=== PATIENT | female | born 1960 | race Caucasian/White ===

== ENCOUNTER → 2017-08-14 | Outpatient (CLI) | payer BC | END | disposition home or self-care (01) | LOC: C.PAPS 10:51 | PROVIDERS: ATTEND Obstetrics & Gynecology | DX: Z01.419 Encounter for gynecological examination (general) (routine) without abnormal findings (principal) ==

== ENCOUNTER 2017-12-25 14:55 | Inpatient (IN) | payer BC, OTHER ==
[~2017-12-25] VITALS: Ht 167.6 cm; Wt 71.0 kg
--- NOTE | 2017-12-25 15:36 | EMERGENCY ROOM VISIT NOTE ---
History Report prepared by Carlyn: Freida Pena Under the Supervision of: Dr. Alfredito Sarmiento M.D. First contact with patient: 14:58 Chief Complaint: MENTAL HEALTH EVALUATION Stated Complaint: MHMR History of Present Illness The patient is a 57 year old white female with a past medical history of breast cancer, GERD, OCD who presents to the ED for a mental health evaluation. The patient states that she was at a routine appointment this afternoon with her PCP. She had thought that she was having some issues with her hormones fluctuating since she started menopause a few years ago. The patient states that she answered some questions in a concerning way and was advised to come to the ED for a mental health evaluation. She states that she felt better after she left her PCP's office today. Positive compulsive hand washing. Negative HI, SI, AVH. Pt denies any mental health history. After discussion with nurse and mental health specialist, the patient reportedly stated that she wanted to kill her [id number] and that she was hearing voices that were telling her to do so. The patient denied this at the time of her visit in the ED. Mental health specialist states that the patient was doing a puzzle and couldn't find a puzzle piece. She stated that once she found this missing puzzle piece she was going to kill her [id number]. 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 Pt admits compulsive hand washing. Review of Systems See HPI for pertinent positives and negatives. A total of ten systems were reviewed and were otherwise negative. Past Medical & Surgical Medical Problems: (1) Acid reflux (2) HX: breast cancer (3) OCD (obsessive compulsive disorder) Surgical Problems: (1) History of lumpectomy Family History No pertinent history stated. Social History Smoking Status: Never Smoker Alcohol Use: occasionally Drug Use: none Current/Historical Medications Scheduled Ascorbic Acid (Ascorbic Acid), 1 TAB PO DAILY Bimatoprost (Lumigan), 1 DROPS OP HS Cholecalciferol (Vitamin D3), 1 TAB PO DAILY Multivitamin (Multivitamin), 1 TAB PO DAILY Ranitidine Hcl (Zantac), 150 MG PO BID Vitamin E (E-400), 1 CAP PO Q2D Allergies Coded Allergies: Clindamycin (Unverified Allergy, Mild, rash, 12/25/17) Penicillins (Unverified Allergy, Unknown, rash, 12/25/17) Sulfamethoxazole (Unverified Allergy, Unknown, unknown, 12/25/17) doesn't remember Adhesives (Unverified Adverse Reaction, Severe, blisters, 12/25/17) Physical Exam Vital Signs Date Time Temp Pulse Resp B/P (MAP) Pulse Ox O2 Delivery O2 Flow Rate FiO2 12/25/17 17:30 98 20 124/68 99 Room Air 12/25/17 16:30 98 20 145/88 100 Room Air 12/25/17 15:22 36.8 98 20 158/74 100 Room Air Physical Exam GENERAL: Awake, alert, well-appearing, NAD HENT: Normocephalic, atraumatic. EYES: Normal conjunctiva. Sclera non-icteric. NECK: Supple. No nuchal rigidity. FROM. RESPIRATORY: CTAB, no rhonchi, wheezing, crackles CARDIAC: RRR, no MRG ABDOMEN: Soft, NTND, BS+ MSK: No chest wall TTP, no LE edema NEURO: GCS 15, CN 2-12 intact, moves all 4s on command SKIN: No rash or jaundice noted. PSYCH: Cooperative, doesn't avert gaze, does not appear depressed. Denies SI, HI , AVH. Medical Decision & Procedures Laboratory Results 12/25/17 15:31 Red Blood Count 4.14, Mean Corpuscular Volume 98.6, Mean Corpuscular Hemoglobin 33.1, Mean Corpuscular Hemoglobin Concent 33.6, Mean Platelet Volume 9.7, Neutrophils (%) (Auto) 64.9, Lymphocytes (%) (Auto) 27.1, Monocytes (%) (Auto) 7.2, Eosinophils (%) (Auto) 0.3, Basophils (%) (Auto) 0.3, Neutrophils # (Auto) 3.78, Lymphocytes # (Auto) 1.58, Monocytes # (Auto) 0.42, Eosinophils # (Auto) 0.02, Basophils # (Auto) 0.02 12/25/17 15:31 Test 12/25/17 15:30 12/25/17 15:31 Urine Color YELLOW Urine Appearance CLEAR (CLEAR) Urine pH 6.5 (4.5-7.5) Urine Specific [place] 1.010 (1.000-1.030) Urine Protein NEG (NEG) Urine Glucose (UA) NEG (NEG) Urine Ketones NEG (NEG) Urine Occult Blood NEG (NEG) Urine Nitrite NEG (NEG) Urine Bilirubin NEG (NEG) Urine Urobilinogen NEG (NEG) Urine Leukocyte Esterase NEG (NEG) Urine Test NEG (NEG) Urine Opiates Screen NEG (NEG) Urine Methadone, Qualitative NEG (NEG) Urine Barbiturates NEG (NEG) Urine Phencyclidine (PCP) Level NEG (NEG) Ur Amphetamine/Methamphetamine NEG (NEG) MDMA (Ecstasy) Screen NEG (NEG) Urine Benzodiazepines Screen NEG (NEG) Urine Cocaine Metabolite NEG (NEG) Urine Marijuana (THC) NEG (NEG) White Blood Count 5.83 K/uL (4.8-10.8) Red Blood Count 4.14 M/uL (4.2-5.4) Hemoglobin 13.7 g/dL (12.0-16.0) Hematocrit 40.8 % (37-47) Mean Corpuscular Volume 98.6 fL (80-100) Mean Corpuscular Hemoglobin 33.1 pg (25-34) Mean Corpuscular Hemoglobin Concent 33.6 g/dl (32-36) Platelet Count 232 K/uL (130-400) Mean Platelet Volume 9.7 fL (7.4-10.4) Neutrophils (%) (Auto) 64.9 % Lymphocytes (%) (Auto) 27.1 % Monocytes (%) (Auto) 7.2 % Eosinophils (%) (Auto) 0.3 % Basophils (%) (Auto) 0.3 % Neutrophils # (Auto) 3.78 K/uL (1.4-6.5) Lymphocytes # (Auto) 1.58 K/uL (1.2-3.4) Monocytes # (Auto) 0.42 K/uL (0.11-0.59) Eosinophils # (Auto) 0.02 K/uL (0-0.5) Basophils # (Auto) 0.02 K/uL (0-0.2) RDW Standard Deviation 45.1 fL (36.4-46.3) RDW Coefficient of Variation 12.6 % (11.5-14.5) Immature Granulocyte % (Auto) 0.2 % Immature Granulocyte # (Auto) 0.01 K/uL (0.00-0.02) Anion Gap 6.0 mmol/L (3-11) Est Creatinine Clear Calc Drug Dose 64.4 ml/min Estimated GFR () 83.4 Estimated GFR (Non- 71.9 BUN/Creatinine Ratio 14.7 (10-20) Calcium Level 9.6 mg/dl (8.5-10.1) Total Bilirubin 0.5 mg/dl (0.2-1) Direct Bilirubin 0.2 mg/dl (0-0.2) Aspartate Amino Transf (AST/SGOT) 21 U/L (15-37) Alanine Aminotransferase (ALT/SGPT) 34 U/L (12-78) Alkaline Phosphatase 81 U/L (45-117) Total Protein 7.8 gm/dl (6.4-8.2) Albumin 4.5 gm/dl (3.4-5.0) Thyroid Stimulating Hormone (TSH) 3.350 uIu/ml (0.300-4.500) Salicylates Level < 1.7 mg/dl (2.8-20) Acetaminophen Level < 2 ug/ml (10-30) Ethyl Alcohol mg/dL < 3.0 mg/dl (0-3) Laboratory results reviewed by me. ED Course 1511: The patient was evaluated in room A8. A complete history and physical exam was performed. 3: I discussed the case with Kari, the psychiatric housing case manager. 3: Further history was obtained from the patient's brother. We discussed the treatment plan. 2109: The patient was accepted to [facility] for further management. She was agreeable voluntarily. Medical Decision Differential diagnosis: Etiologies such as mood disorder, infection, hypoglycemia, electrolyte abnormalities, cardiac sources, intracerebral event, toxicologic, neurologic, as well as others were entertained. The patient is a 57 year old white female with a past medical history of breast cancer, GERD, OCD who presents to the ED for a mental health evaluation. Patient was seen and evaluated the bedside. Patient was referred as a three- view to involuntary psychiatric treatment. The patient denied any symptoms on exam. The patient was very cooperative. Patient denied any auditory or visual hallucinations. Patient denied any SI or HI. Purportedly the patient had presented to a clinic follow-up where she had expressed that she would want to kill her [id number] and that there were voices telling her to do so. She did have blood work completed. Patient was medically cleared. Patient was evaluated by the mental health specialist. Patient was voluntarily admitted. Patient was admitted to 3 S. Medication Reconcilliation Current Medication List: was personally reviewed by me Blood Pressure Screening Patient's blood pressure: Normal blood pressure Impression Primary Impression: Auditory hallucination Additional Impressions: Homicidal ideation OCD (obsessive compulsive disorder) Scribe Attestation The scribe's documentation has been prepared under my direction and personally reviewed by me in its entirety. I confirm that the note above accurately reflects all work, treatment, procedures, and medical decision making performed by me. Departure Information Dispostion Mental Health Acute Care Referrals Sharita Seay M.D. (PCP) Patient Instructions [facility] Problem Qualifiers Additional Impressions: OCD (obsessive compulsive disorder) Obsessive-compulsive disorder type: other Qualified Codes: F42.8 - Other obsessive-compulsive disorder
[2017-12-25] MEDS ORDERED: VITACAP37 PO (15:40)
[2017-12-25] MEDS ORDERED: MULT-506 PO (15:40)
[2017-12-25] MEDS ORDERED: ASCO100061 PO (15:40)
[2017-12-25] MEDS ORDERED: BIMA0.01 OP (15:40)
[2017-12-25] MEDS ORDERED: CHOL1000 PO (15:40)
[2017-12-25] MEDS ORDERED: RANI150T3 PO (15:40)
[2017-12-25 15:51] LABS: BASO % 0.3 %; BASO ABS # 0.02 K/uL (0-0.2); EOS % 0.3 %; EOS ABS # 0.02 K/uL (0-0.5); HEMATOCRIT 40.8 % (37-47); HEMOGLOBIN 13.7 g/dL (12.0-16.0); IG# 0.01 K/uL (0.00-0.02); LYMPH % 27.1 %; LYMPH ABS # 1.58 K/uL (1.2-3.4); MEAN CELL VOLUME 98.6 fL (80-100); MEAN CORPUSCULAR HEMOGLOBIN 33.1 pg (25-34); MEAN CORPUSCULAR HGB CONC 33.6 g/dl (32-36); MEAN PLATELET VOLUME 9.7 fL (7.4-10.4); MONO % 7.2 %; MONO ABS # 0.42 K/uL (0.11-0.59); NEUT % 64.9 %; NEUT ABS # 3.78 K/uL (1.4-6.5); PLATELET COUNT 232 K/uL (130-400); RED CELL DISTRIBUTION WIDTH CV 12.6 % (11.5-14.5); RED CELL DISTRIBUTION WIDTH SD 45.1 fL (36.4-46.3); WHITE BLOOD COUNT 5.83 K/uL (4.8-10.8)
[2017-12-25 16:04] LABS: ALBUMIN 4.5 gm/dl (3.4-5.0); CALCIUM 9.6 mg/dl (8.5-10.1); CREATININE 0.88 mg/dl (0.60-1.20); POTASSIUM 3.8 mmol/L (3.5-5.1)
[2017-12-25 16:15] LABS: TOTAL PROTEIN 7.8 gm/dl (6.4-8.2)
[2017-12-25] MEDS ORDERED: hydrOXYzine HCL 25 MG TAB PO PRN (20:30)
[2017-12-25] MEDS ORDERED: BISMUTH SUBSALICYLATE PER ML OMNICELL CHARGE PO PRN (20:30)
[2017-12-25] MEDS ORDERED: ACETAMINOPHEN 325 MG TAB PO PRN (20:30)
[2017-12-25] MEDS ORDERED: SODIUM CHLORIDE 0.65% NA SOLN 45 ML (OCEAN) PRN (20:30)
[2017-12-25] MEDS ORDERED: ALUMINUM/MAGNESIUM SUSP 30 ML UDC PO PRN (20:30)
[2017-12-25] MEDS ORDERED: MAGNESIUM HYDROXIDE SUSP 30 ML UDC PO PRN (20:30)
[2017-12-25 21:07] VITALS: O2SAT 99
[2017-12-25 22:06] VITALS: BP 137/92; PULSE 64; TEMP 36.8; Ht 167.6 cm; Wt 71.0 kg
[2017-12-25] MEDS: BIMATOPROST 0.01% OP SOLN 2.5 ML BTL OP SCH (22:47)
[2017-12-25] MEDS: RANITIDINE HCL 150 MG TAB PO SCH (23:37)
[2017-12-26] MEDS: hydrOXYzine HCL 25 MG TAB PO PRN ×2 (02:13→21:05)
[2017-12-26 06:57] VITALS: BP_SYST 117; BP_SYST 119; BP_DIAS 75; BP_DIAS 77; PULSE 67; TEMP 36.7
[2017-12-26] MEDS: MULTIVITAMIN TAB PO SCH (08:17)
[2017-12-26] MEDS: CHOLECALCIFEROL 1000 INTER.UNIT TAB PO SCH (08:17)
[2017-12-26] MEDS: RANITIDINE HCL 150 MG TAB PO SCH ×2 (08:18→21:05)
--- NOTE | 2017-12-26 10:42 | Psychiatric History & Physical ---
History Date of Service Dec 26, 2017. Identifying Data Valentina Ibrahim is a 57-year-old female admitted on Dec 25, 2017 at 20:28 who currently lives in [place] alone. Valentina Ibrahim was admitted on a 201 voluntary commitment. Patient is admitted from home. The patient was brought to the ED by the police after a 302 warrant was petitioned by her brother and [id number]. Information provided by the patient is considered to be reliable. Chief Complaint "I think it's because my family thought I was depressed and might hurt myself". History of Present Illness Valentina Ibrahim is a 57-year-old female brought to the ED upon 302 warrant with petitioning statements from her brother and uqxriz-[id number]. Pt agreed to sign in voluntarily and was admitted to [address] [place] [address]. Pt states she was seen for a doctor 's appointment today and had filled out a questionnaire, which concerned her doctor. Pt reports filling out the survey (presumed to be PHQ-9) "based on one of my bad days", but states "I was actually having a really good day yesterday" . Due to doctor's concern coupled with reports of significant decline by her brother and [id number], the patient was referred for mental health evaluation. Pt states she went home after her doctor's appointment and completed several activities when the police arrived at her door to take her to the hospital. Pt feels that this concern was exaggerated. Pt states she will express concerning thoughts to her brother as a way to "share ", but states "expressed thoughts are not always something worth acting on." She reports having occasional fleeting thoughts of SI/HI which are prompted by the news or headlines in the paper. Pt states, "sometimes I think life is hard , but I think about those things and realize I would never do that". She has noticed these thoughts with her own life, but has also thought "sometimes people hurt people they love, I realized I could do that to my [id number]-[id number], but I would never want to because I care for her." Pt states she is typically able to dismiss these thoughts, but on occasion will share them with her brother to get assurance. Pt states she has a history of OCD and notices severity of hand washing behavior changes based on activity level and distractors. Pt reports she was sick with the flu around Thanksgiving this year and was concerned about spreading her germs to her family. Due to these concerns, handwashing behavior increased significant. Pt states she is now working to decrease this and reports she has been effective. Pt "I will always wash my hands before and after meals, when I come home from the store, and after the bathroom - it's the other events that I'm flexible with". Pt reports she will take advantage of phone calls with her brother to ask for reassurance of her behavior. Pt remembers growing up with these behaviors, but states the severity changes. She reports mood symptoms in the context of her heightened obsessions stating, "I get depressed when I can't break the cycle". Reported depression lasts for several days at most. She denies anhedonia, difficulty concentrating, trouble with sleeping and eating, and feeling hopeless. Pt states her recent weight loss is due to "being distracted with my hand washing, I would forget to eat". She states she is now at a weight she wishes to maintain. Concerns from the brother and dnsleo-wf-ify seem to be greater than what the patient is expressing in our encounter today. Reported concern for decreased functioning, weight loss, and increased intrusive thoughts have led to petitioning statements for the patient's admission. Extensive petitioning statements with supplemental "running record" from her bayelf-kw-sxj of comments made recently. Per brother, pt mentioned "thought of us finding her dangling from a rope in her house", walking in a graveyard stating "and all those amanda people". Sxnkur-ib-iew, Etta, remembers comments of "I wish I had a button I could push and just be out of here". Etta reports patient has been accepted by the [facility], but can only move there is 3 years. Pt is eager for this as "I would just sit in a custodial and not think about anything". Petitioning statements are out of proportion to patient's words at this encounter. It would be extremely beneficial to engage her family in a meeting to gain collateral information. Pt denies current SI/HI, A/V hallucinations, paranoia, vladimir, PTSD, eating disorder, and other psychosis. Pt reports she is not interested in medications or therapy at this point in time as she feels this is something she can control with the support of her family. Past Psychiatric History Current OP Treatment: no current treatment Prior OP Treatment: no prior treatment Access to a Gun: No Suicide Attempts: No Past Medication Trials None Past Medical/Surgical History History of Concussion/Seizure: No (1) HX: breast cancer (2) Acid reflux Allergies Allergies: Coded Allergies: Clindamycin (Unverified Allergy, Mild, rash, 12/25/17) Penicillins (Unverified Allergy, Unknown, rash, 12/25/17) Sulfamethoxazole (Unverified Allergy, Unknown, unknown, 12/25/17) doesn't remember Adhesives (Unverified Adverse Reaction, Severe, blisters, 12/25/17) Home Medications Scheduled Ascorbic Acid (Ascorbic Acid), 1 TAB PO DAILY Bimatoprost (Lumigan), 1 DROPS OP HS Cholecalciferol (Vitamin D3), 1 TAB PO DAILY Multivitamin (Multivitamin), 1 TAB PO DAILY Ranitidine Hcl (Zantac), 150 MG PO BID Vitamin E (E-400), 1 CAP PO Q2D Family History History of Suicide: No History of Substance Abuse: Yes (father - recovering alcoholic) Psychiatric History: Yes (niece - bipolar disorder) Alcohol Use Alcohol Use In Past 12 Months: No AUDIT Total Score: 1 Smoking Use Smoking Status: Never Smoker Substance History None Personal History Lives in: [place], [place] Childhood: Pt spent most of her life in [place]. She has one brother who has been supportive. Pt moved to [place] 7 years ago. 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 Relationship History: never Children: None Spiritual Affiliation: Synagogue Legal History: none Psychological Trauma History: Denies Hx Traumatic Event Review of Systems Psych: denies symptoms other than stated above Constitutional: denied Cardiovascular: denied GI: reports frequent indigestion Neurologic: reports occasional "tingling" in toes Remainder of 10 body systems also reviewed and denied other than noted above. Examination Physical Examination A physical exam was performed in the ER prior to admission to the unit by Alfredito Sarmiento M.D.. I accept that physical as correct/medical clearance for the inpatient physical exam. Vital Signs Vital Signs Past 12 Hours Date Time Temp Pulse Resp B/P (MAP) Pulse Ox O2 Delivery O2 Flow Rate FiO2 1/25/18 06:57 36.7 67 16 119/75 117/77 12/25/17 22:06 36.8 64 16 137/92 12/25/17 21:07 78 16 137/92 99 Room Air Laboratory Results Last 24 Hours Test 12/25/17 15:30 12/25/17 15:31 12/25/17 15:42 Urine Color YELLOW Urine Appearance CLEAR Urine pH 6.5 Urine Specific [place] 1.010 Urine Protein NEG Urine Glucose (UA) NEG Urine Ketones NEG Urine Occult Blood NEG Urine Nitrite NEG Urine Bilirubin NEG Urine Urobilinogen NEG Urine Leukocyte Esterase NEG Urine Test NEG Urine Opiates Screen NEG Urine Methadone, Qualitative NEG Urine Barbiturates NEG Urine Phencyclidine (PCP) Level NEG Ur Amphetamine/Methamphetamine NEG MDMA (Ecstasy) Screen NEG Urine Benzodiazepines Screen NEG Urine Cocaine Metabolite NEG Urine Marijuana (THC) NEG White Blood Count 5.83 K/uL Red Blood Count 4.14 M/uL Hemoglobin 13.7 g/dL Hematocrit 40.8 % Mean Corpuscular Volume 98.6 fL Mean Corpuscular Hemoglobin 33.1 pg Mean Corpuscular Hemoglobin Concent 33.6 g/dl Platelet Count 232 K/uL Mean Platelet Volume 9.7 fL Neutrophils (%) (Auto) 64.9 % Lymphocytes (%) (Auto) 27.1 % Monocytes (%) (Auto) 7.2 % Eosinophils (%) (Auto) 0.3 % Basophils (%) (Auto) 0.3 % Neutrophils # (Auto) 3.78 K/uL Lymphocytes # (Auto) 1.58 K/uL Monocytes # (Auto) 0.42 K/uL Eosinophils # (Auto) 0.02 K/uL Basophils # (Auto) 0.02 K/uL RDW Standard Deviation 45.1 fL RDW Coefficient of Variation 12.6 % Immature Granulocyte % (Auto) 0.2 % Immature Granulocyte # (Auto) 0.01 K/uL Sodium Level 138 mmol/L Potassium Level 3.8 mmol/L Chloride Level 106 mmol/L Carbon Dioxide Level 26 mmol/L Anion Gap 6.0 mmol/L Blood Urea Nitrogen 13 mg/dl Creatinine 0.88 mg/dl Est Creatinine Clear Calc Drug Dose 64.4 ml/min Estimated GFR () 83.4 Estimated GFR (Non- 71.9 BUN/Creatinine Ratio 14.7 Random Glucose 120 mg/dl Calcium Level 9.6 mg/dl Total Bilirubin 0.5 mg/dl Direct Bilirubin 0.2 mg/dl Aspartate Amino Transf (AST/SGOT) 21 U/L Alanine Aminotransferase (ALT/SGPT) 34 U/L Alkaline Phosphatase 81 U/L Total Protein 7.8 gm/dl Albumin 4.5 gm/dl Thyroid Stimulating Hormone (TSH) 3.350 uIu/ml Salicylates Level < 1.7 mg/dl Acetaminophen Level < 2 ug/ml Ethyl Alcohol mg/dL < 3.0 mg/dl Bedside Glucose 119 mg/dl Mental Examination During interview pt is: alert and oriented, cooperative, guarded Appearance: appropriately dressed, appropriately groomed Eye contact is: good Motor behavior is: steady gait & station, no abnormal motor movements Speech: normal in rate, rhythm & volume Affect: blunted Mood is: other ("I'm fine") Thought process: goal directed, clear, coherent Thought content: obsessions (with handwashing), reality based without delusions , phobias (of germs/contamination) Suicidal thought are: denied (but frequent comments about listed in 302 petition ), Plan: denied, Intent: denied Homicidal thoughts are: denied (shared with family that she "needs to kill Etta", but doesn't want to.), Plan: denied, Intent: denied Hallucinations: denies auditory, denies visual Cognition: memory grossly intact, attention grossly intact, language grossly intact Intelligence estimated to be: consistent with level of education Insight: impaired Judgement: impaired Impression / Recommendations Impression 57-year-old female admitted to [address] [place] [address] in voluntarily after 302 warrant. Lifelong history of OCD and obsessions with germs and contamination. Pt has frequent handwashing and cleansing that fluctuates in severity. Pt likely minimizing symptoms as extensive petitioning statements from brother and [id number] show frequent comments of and obsessions with contamination to the point of decreased function and poor nutritional intake. Pt is not willing for medications or outpatient therapy at initial assessment, but would likely benefit from both. Offered information on SSRIs to review to benefit with obsessions, which patient denied. Pt unwilling to further involve family at this time, but is necessary as her account of the situation is incongruent to the remarks on the petitioning statements. Pt feels her admission is an over -exaggeration and is willing to only participate in order to be discharged home. Inventory Assets Strengths: intelligence, strong support from family members. Needs: lacks insight into severity of situation, refusal for outpatient treatment Risk Factors Assessment : Yes /single/: Yes Access to guns: No Health problems: No Mental Health Diagnoses: Yes (OCD) Substance use disorders: No Previous attempt: No Family history of suicide: No Previous psychiatric stay: No Hopelessness: No Smoker: No Protective Factors Assessment Oriental Orthodox beliefs: Yes : No Responsible for young children: No Employed: No (Retired) Stable relationships: No Supportive family: Yes Recommendations (1) OCD (obsessive compulsive disorder) 12/26 - Pt refuses medications at this time. Unwilling for handout to review on SSRIs which could help treat obsessions compulsions. Refuses outpatient treatment at this time. - Encourage, and potentially mandate, family meeting with brother and sister- in-law as patients account is incongruent to statements made by family members. Difficult to determine severity of decreased functioning and insight into illness based on patient's reports alone. - Encourage participation in group therapy and other group-based programming on the unit. - Coordination of care with outpatient providers. Presentation and treatment plan reviewed and discussed with Dr. Hammond who is in agreement with plan at this point in time. CPT Code Initial Hospital Care: 24579 Problem Qualifiers (1) OCD (obsessive compulsive disorder): Obsessive-compulsive disorder type: mixed obsessional thoughts and acts Qualified Codes: F42.2 - Mixed obsessional thoughts and acts
[2017-12-26] MEDS: BIMATOPROST 0.01% OP SOLN 2.5 ML BTL OP SCH (21:05)
[2017-12-27 06:58] VITALS: BP_SYST 109; BP_SYST 97; BP_DIAS 61; BP_DIAS 69; PULSE 52; PULSE 67; TEMP 36.5
[2017-12-27] MEDS: MULTIVITAMIN TAB PO SCH (07:57)
[2017-12-27] MEDS: CHOLECALCIFEROL 1000 INTER.UNIT TAB PO SCH (07:57)
[2017-12-27] MEDS: RANITIDINE HCL 150 MG TAB PO SCH ×2 (07:57→21:09)
--- NOTE | 2017-12-27 10:34 | Psych Management Progress Note ---
Psychiatry Miscellaneous Date of Service: Dec 27, 2017. Patient seen, MS assessed. Rates mood as "almost 10 but then I heard my length of stay so now maybe 6 or 7"/10. Encouraged cooperation with care and treatment plan as outlined by allied health prescriber. Presented as somewhat guarded in group interactions. Must have a family session or at least witnessed visitation with family prior to discharge to see if triggering for her intrussive thoughts. Would benefit from SRI trial.
--- NOTE | 2017-12-27 15:24 | Psychiatric Progress Notes ---
Progress Note Date of Service Dec 27, 2017. Interval History Valentina Ibrahim is a 57-year-old female admitted on Dec 25, 2017 at 20:28 who currently lives in [place] alone. Valentina Ibrahim was admitted on a 201 voluntary commitment. Patient is admitted from home. The patient was brought to the ED by the police after a 302 warrant was petitioned by her brother and [id number]. Information provided by the patient is considered to be reliable. Chief Complaint "I'm frustrated with my length of stay". Subjective Patient was seen & assessed interval progress reviewed with Treatment Team. Staff reports patient confirms willingness for therapy and has secured intake with [facility]. She continues to be participatory with groups but is resistant to treatment. Pt was seen today to assess progress since admission. Pt states she was troubled by her length of stay as she felt like it was a mistake for her to be here to begin with. Pt was hopeful she would not be staying long and was upset she was given 3-5 more days during treatment team. Pt now reports she has changed her mind and is unwilling to participate in therapy. She thinks "some things should be kept to yourself, or you end up in places like this for no reason". 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 She continues to refuse meeting with her brother and sister-in- law, although they have come to visit her. Pt continues to minimize symptoms and states she is able to control them on her own. She refuses medications and does not want any agents that could alter her mental state. Pt denies SI/HI, A/ V hallucinations, or other psychosis. She states handwashing behavior has decreased since admission. Review of Systems Psych: denies symptoms other than stated above Constitutional: denied Cardiovascular: denied GI: denied Neurologic: denied Remainder of 10 body systems also reviewed and denied other than noted above. Sleep Information Total Hours of Sleep: 6.50 Meal Information Percent of Breakfast Consumed: 100 Percent of Lunch Consumed: 100 Percent of Dinner Consumed: 100 Mental Status Exam During interview pt is: alert and oriented, guarded Appearance: appropriately dressed, appropriately groomed Eye contact is: good Motor behavior is: steady gait & station, no abnormal motor movements Speech: normal in rate, rhythm & volume Affect: blunted, irritable (about recommendations and length of stay) Mood is: other ("I'm fine") Thought process: clear, coherent, concrete Thought content: obsessions (with handwashing and cleanliness), reality based without delusions, phobias (germs/contamination) Suicidal thought are: denied (reported by brother and [id number]), Plan: denied, Intent: denied Homicidal thoughts are: denied (intrusive thoughts of having to kill her sister -in-law; not reported today), Plan: denied, Intent: denied Hallucinations: denies auditory, denies visual Cognition: memory grossly intact, attention grossly intact, language grossly intact Intelligence estimated to be: consistent with level of education Insight: impaired Judgement: impaired Impression Pt remains resistant to treatment. She refuses medications offered and is unwilling to review patient drug information handouts. Pt was initially agreeable to therapy and is now refusing as she doesn't feel it is beneficial to involve a stranger in her "business". Pt states she does not think a family meeting with her brother and [id number]-uv-zjq is necessary. Pt is concrete in her responses, but was encouraged to remain open-minded as many options were explained that could be of great benefit to her. Pt requires ongoing inpatient admission as she has not come around to any form of treatment for her presenting symptoms. Additional information from brother and uwwibu-jf-jlr would be helpful as patient is high-risk for decompensation if no stressor are , but she is not interested in involving them at this time. Plan (1) OCD (obsessive compulsive disorder) 12/26 - Pt refuses medications at this time. Unwilling for handout to review on SSRIs which could help treat obsessions compulsions. Refuses outpatient treatment at this time. - Encourage, and potentially mandate, family meeting with brother and sister- in-law as patients account is incongruent to statements made by family members. Difficult to determine severity of decreased functioning and insight into illness based on patient's reports alone. - Encourage participation in group therapy and other group-based programming on the unit. - Coordination of care with outpatient providers. 12/27 - Pt continues to refuse medications and outpatient therapy. She has been participating in groups, but will not engage in additional treatment. - Would be ideal to have family meeting with brother and [id number] to address their issues as patient feels she is here as a misunderstanding, but their accounts contradict these beliefs. - Continue to encourage treatment. Presentation and treatment plan reviewed and discussed with Dr. Hammond who is in agreement with plan at this point in time. Discharge / Aftercare Planning Primary Care Physician: Name: Evita Sanchez [facility] Therapist: Name: [facility] Date of Appointment: Jan 08, 2018 Time of Appointment: 1 p.m. Appointment Notes: Intake with Connie Fields, [address] [place] [address] Visit Code E&M Code: 62533 Inventory Assets Strengths: intelligence, strong support from family members. Needs: lacks insight into severity of situation, refusal for outpatient treatment Risk Factors Assessment : Yes /single/: Yes Health problems: No Mental Health Diagnoses: Yes (OCD) Substance use disorders: No Previous attempt: No Family history of suicide: No Previous psychiatric stay: No Hopelessness: No Smoker: No Protective Factors Assessment Buddhism beliefs: Yes : No Responsible for young children: No Employed: No (Retired) Stable relationships: No Supportive family: Yes Data Vital Signs Last 24 Hrs: Date Time Temp Pulse Resp B/P (MAP) Pulse Ox O2 Delivery O2 Flow Rate FiO2 12/27/17 06:58 36.5 52 16 97/61 67 109/69 Meds Administered Last 24 Hrs: Meds Administered (Past 24Hrs) Medications (Trade) Dose Ordered Sig/Yassine Route Start Time Stop Time Status Last Admin Dose Admin Hydroxyzine HCl (Vistaril Tab) 50 mg HSZ PRN PO 12/25/17 20:30 01/24/18 20:29 12/26/17 21:05 50 MG Cholecalciferol (Vitamin D Tab) 1,000 inter.unit DAILY PO 12/26/17 09:00 01/25/18 08:59 12/27/17 07:57 1,000 INTER.UNIT Multivitamins (Multivitamin Tab) 1 tab DAILY PO 12/26/17 09:00 01/25/18 08:59 12/27/17 07:57 1 TAB Ranitidine HCl (zANTac TAB) 150 mg BID PO 12/25/17 21:00 01/24/18 20:59 12/27/17 07:57 150 MG Bimatoprost (Lumigan 0.01%) 1 drops HS OP 12/25/17 22:00 01/24/18 21:59 12/26/17 21:05 1 DROPS Problem Qualifiers (1) OCD (obsessive compulsive disorder): Obsessive-compulsive disorder type: mixed obsessional thoughts and acts Qualified Codes: F42.2 - Mixed obsessional thoughts and acts
[2017-12-27] MEDS: BIMATOPROST 0.01% OP SOLN 2.5 ML BTL OP SCH (21:09)
[2017-12-27] MEDS: hydrOXYzine HCL 25 MG TAB PO PRN (21:09)
[2017-12-28 06:50] VITALS: BP_SYST 105; BP_SYST 113; BP_DIAS 65; BP_DIAS 76; PULSE 63; PULSE 67; TEMP 36.4
[2017-12-28] MEDS: MULTIVITAMIN TAB PO SCH (09:06)
--- NOTE | 2017-12-28 09:07 | Psychiatric Progress Notes ---
Progress Note Date of Service Dec 28, 2017. Interval History Valentina Ibrahim is a 57-year-old female admitted on Dec 25, 2017 at 20:28 who currently lives in [place] alone. Valentina Ibrahim was admitted on a 201 voluntary commitment. Patient is admitted from home. The patient was brought to the ED by the police after a 302 warrant was petitioned by her brother and [id number]. Information provided by the patient is considered to be reliable. Chief Complaint "I'm quite good". Subjective Patient was seen & assessed interval progress reviewed with Nursing. Pt states she had a visit last evening from her nephew and niece. She states she is still frustrated about being here, but says "I know I don't have a choice". Pt states she has been doing quite well and has noticed an improvement in appetite and energy since admission. She states her handwashing behavior has decreased and she was even able to shower in the shared restroom yesterday, something she had stated on admission she would absolutely not do. Long discussion was had with patient about the importance of a family meeting prior to discharge as she has refused treatment offered to her during this hospitalization. It is still presumed that patient is minimizing as her story remains incongruent with petitioning statements made by her brother and [id number]-da-qjg. Pt is aware that as her intrusive homicidal thoughts were directed toward her ezcyks-of-nag, it would be important for those concerns to be discussed during a formal meeting. Pt continues to believe that her admission is the fault of her PCP; however, we discussed that petitioning statements were made by her family and that their concerns needed to be addressed in order for everyone to feel comfortable with discharge. We discussed that the meeting also involves safety planning in which the patient can share her plans to improve on concerns expressed by her family. Although she is accepting that a family meeting will be required, she is continuing to refuse medications or outpatient therapy. Pt denies ongoing intrusive thoughts and reports improvement in her obsessions. Review of Systems Psych: denies symptoms other than stated above Constitutional: denied Cardiovascular: denied GI: denied Neurologic: denied Remainder of 10 body systems also reviewed and denied other than noted above. Sleep Information Total Hours of Sleep: 7.50 Meal Information Percent of Breakfast Consumed: 100 Percent of Lunch Consumed: 100 Percent of Dinner Consumed: 90 Mental Status Exam During interview pt is: alert and oriented, cooperative, guarded (refusing to discuss topics) Appearance: appropriately dressed, appropriately groomed (reports showering yesterday) Eye contact is: good Motor behavior is: steady gait & station, no abnormal motor movements Speech: normal in rate, rhythm & volume Affect: blunted, irritable (about requirement for family meeting) Mood is: other ("quite good") Thought process: clear, coherent, concrete Thought content: obsessions (contamination and handwashing), reality based without delusions, phobias (germs) Suicidal thought are: denied (reported in petitioning statement), Plan: denied , Intent: denied Homicidal thoughts are: denied (reported in petitioning statement), Plan: denied, Intent: denied Hallucinations: denies auditory, denies visual Cognition: memory grossly intact, attention grossly intact, language grossly intact Intelligence estimated to be: consistent with level of education Insight: impaired Judgement: impaired Impression Pt accepting requirement for family meeting to allow us to better assess discharge timing. States she will participate "because I have to", but is not agreeing to outpatient therapy or medications. Concerns of brother and sister- in-law should be addressed during the meeting and safety planning should take place as well. Pt reports improvement in obsessions and compulsions in this environment and states she has been eating better which she feels is causing her to improve as well. Pt continues to minimize symptoms and reports her admission was a mistake. She remains resistant to discuss concerns expressed by brother and [id number], which is concerning. Pt requires inpatient mental health treatment as risk factors and concerns reported in petitioning statement by family have yet to be address. Pt is at high risk for decompensation and harm to herself or others if discharged without an opportunity to address these concerns. Plan (1) OCD (obsessive compulsive disorder) 12/26 - Pt refuses medications at this time. Unwilling for handout to review on SSRIs which could help treat obsessions compulsions. Refuses outpatient treatment at this time. - Encourage, and potentially mandate, family meeting with brother and sister- in-law as patients account is incongruent to statements made by family members. Difficult to determine severity of decreased functioning and insight into illness based on patient's reports alone. - Encourage participation in group therapy and other group-based programming on the unit. - Coordination of care with outpatient providers. 12/27 - Pt continues to refuse medications and outpatient therapy. She has been participating in groups, but will not engage in additional treatment. - Would be ideal to have family meeting with brother and [id number]-fs-ieq to address their issues as patient feels she is here as a misunderstanding, but their accounts contradict these beliefs. - Continue to encourage treatment. 12/28 - Pt states she will participate in family meeting with brother and sister-in -law. Concerns from 302 petitioning statements and safety planning should be discussed. Discharge is highly dependent on patient's ability to address these concerns and mitigate risk factors. - Pt refusing medications and outpatient therapy. - Continue to offer resources for outpatient treatment. Presentation and treatment plan reviewed and discussed with Dr. Hammond who is in agreement with plan at this point in time. Discharge / Aftercare Planning Primary Care Physician: Name: Dr. Seay [facility] Therapist: Name: [facility] Date of Appointment: Jan 08, 2018 Time of Appointment: 1 p.m. Appointment Notes: Intake with Connie Fields, [address] [place] [address] Visit Code E&M Code: 62856 Inventory Assets Strengths: intelligence, strong support from family members. Needs: lacks insight into severity of situation, refusal for outpatient treatment Risk Factors Assessment : Yes /single/: Yes Health problems: No Mental Health Diagnoses: Yes (OCD) Substance use disorders: No Previous attempt: No Family history of suicide: No Previous psychiatric stay: No Hopelessness: No Smoker: No Protective Factors Assessment Synagogue beliefs: Yes : No Responsible for young children: No Employed: No (Retired) Stable relationships: No Supportive family: Yes Data Vital Signs Last 24 Hrs: Date Time Temp Pulse Resp B/P (MAP) Pulse Ox O2 Delivery O2 Flow Rate FiO2 12/28/17 06:50 36.4 63 16 105/65 67 113/76 Meds Administered Last 24 Hrs: Meds Administered (Past 24Hrs) Medications (Trade) Dose Ordered Sig/Yassine Route Start Time Stop Time Status Last Admin Dose Admin Cholecalciferol (Vitamin D Tab) 1,000 inter.unit DAILY PO 12/26/17 09:00 01/25/18 08:59 12/27/17 07:57 1,000 INTER.UNIT Multivitamins (Multivitamin Tab) 1 tab DAILY PO 12/26/17 09:00 01/25/18 08:59 12/27/17 07:57 1 TAB Problem Qualifiers (1) OCD (obsessive compulsive disorder): Obsessive-compulsive disorder type: mixed obsessional thoughts and acts Qualified Codes: F42.2 - Mixed obsessional thoughts and acts
[2017-12-28] MEDS: RANITIDINE HCL 150 MG TAB PO SCH ×2 (09:08→21:49)
[2017-12-28] MEDS: CHOLECALCIFEROL 1000 INTER.UNIT TAB PO SCH (09:08)
[2017-12-28] MEDS: hydrOXYzine HCL 25 MG TAB PO PRN (21:49)
[2017-12-28] MEDS: BIMATOPROST 0.01% OP SOLN 2.5 ML BTL OP SCH (21:49)
[2017-12-29 06:43] VITALS: BP_SYST 101; BP_SYST 110; BP_DIAS 62; BP_DIAS 68; PULSE 62; PULSE 73; TEMP 36.6
[2017-12-29] MEDS: CHOLECALCIFEROL 1000 INTER.UNIT TAB PO SCH (08:29)
[2017-12-29] MEDS: MULTIVITAMIN TAB PO SCH (08:29)
[2017-12-29] MEDS: RANITIDINE HCL 150 MG TAB PO SCH ×2 (08:29→21:17)
--- NOTE | 2017-12-29 10:03 | Psych Management Progress Note ---
Psychiatry Miscellaneous Date of Service: Dec 29, 2017. Patient seen, MS assessed. Rates mood as 9/10 and satisfied. Encouraged cooperation with care and treatment plan as outlined by allied health prescriber. She expressed a desire to resume exercise routine (jogging), somewhat closed to suggestions of activities that she could do here.
--- NOTE | 2017-12-29 12:37 | Psychiatric Progress Notes ---
Progress Note Date of Service Dec 29, 2017. Interval History Valentina Ibrahim is a 57-year-old female admitted on Dec 25, 2017 at 20:28 who currently lives in [place] alone. Valentina Ibrahim was admitted on a 201 voluntary commitment. Patient is admitted from home. The patient was brought to the ED by the police after a 302 warrant was petitioned by her brother and [id number]. Information provided by the patient is considered to be reliable. Chief Complaint "I'm OK.". Subjective Patient was seen & assessed interval progress reviewed with Treatment Team. The patient says that her mood is fine and she seems to be doing okay with her compulsive behaviors. She notes that she has been able to tolerate using the public shower and sharing a bathroom although initially with some anxiety and trepidation. She denies that she has excessively washing her hands although certain habits such as washing her hands before and after meals persist which appear to be within the realm of normal. We discuss books written about OCD and the place of medications in treating it. She feels like her symptoms wax and wane and currently feels like she is in better control and continues to not want to use medicines to treat it. She continues to deny that she has any ideas , plan or intent to harm anybody else and specifically not harm her sister-in- law. She did finally allow for a family meeting with her brother and sister-in- law yesterday during which they discussed her symptoms, and her family's concerns about her worsening symptoms. She did agree that she would attend counseling and is requesting a spiritual counselor. Referral [facility] to [facility]. She is anxious for discharge but reasonable and willing to wait until we can make her an aftercare appointment. She denies suicidal ideation. There is no evidence of thought disorder. Review of Systems Constitutional: No fever, No chills, No sweats, No weight loss, No weakness, No fatigue, No problem reported ENT: No hearing loss, No unusual epistaxis, No nasal symptoms, No sore throat, No tinnitus, No dental problems, No trouble swallowing, No problem reported Cardiovascular: No chest pain, No orthopnea, No PND, No edema, No claudication , No palpitations, No problem reported Abdomen: No pain, No nausea, No vomiting, No diarrhea, No constipation, No GI bleeding, No problem reported Musculoskeletal: No joint pain, No muscle pain, No swelling, No calf pain, No problem reported Neurologic: No memory loss, No paralysis, No weakness, No numbness/tingling, No vertigo, No balance problems, No problem reported Psychiatric: + problem reported (focus on cleanliness) Integumentary: No rash, No itch, No new/changing skin lesions, No color change , No bleeding, No problem reported Sleep Information Total Hours of Sleep: 7.25 Meal Information Percent of Breakfast Consumed: 100 Percent of Lunch Consumed: 100 Percent of Dinner Consumed: 100 Mental Status Exam During interview pt is: alert and oriented, cooperative Appearance: appropriately dressed, appropriately groomed (reports showering yesterday) Eye contact is: good Motor behavior is: steady gait & station, no abnormal motor movements Speech: normal in rate, rhythm & volume Affect: blunted Mood is: other ("OK") Thought process: clear, coherent, concrete Thought content: obsessions (contamination and handwashing), reality based without delusions, phobias (germs) Suicidal thought are: denied (reported in petitioning statement), Plan: denied , Intent: denied Homicidal thoughts are: denied (reported in petitioning statement), Plan: denied, Intent: denied Hallucinations: denies auditory, denies visual Cognition: memory grossly intact, attention grossly intact, language grossly intact Intelligence estimated to be: consistent with level of education Insight: limited Judgement: limited Impression Pt accepting requirement for family meeting to allow us to better assess discharge timing. States she will participate "because I have to", but is not agreeing to outpatient therapy or medications. Concerns of brother and sister- in-law should be addressed during the meeting and safety planning should take place as well. Pt reports improvement in obsessions and compulsions in this environment and states she has been eating better which she feels is causing her to improve as well. Pt continues to minimize symptoms and reports her admission was a mistake. She remains resistant to discuss concerns expressed by brother and [id number], which is concerning. Pt requires inpatient mental health treatment as risk factors and concerns reported in petitioning statement by family have yet to be address. Pt is at high risk for decompensation and harm to herself or others if discharged without an opportunity to address these concerns. Plan (1) OCD (obsessive compulsive disorder) 12/26 - Pt refuses medications at this time. Unwilling for handout to review on SSRIs which could help treat obsessions compulsions. Refuses outpatient treatment at this time. - Encourage, and potentially mandate, family meeting with brother and sister- in-law as patients account is incongruent to statements made by family members. Difficult to determine severity of decreased functioning and insight into illness based on patient's reports alone. - Encourage participation in group therapy and other group-based programming on the unit. - Coordination of care with outpatient providers. 12/27 - Pt continues to refuse medications and outpatient therapy. She has been participating in groups, but will not engage in additional treatment. - Would be ideal to have family meeting with brother and [id number] to address their issues as patient feels she is here as a misunderstanding, but their accounts contradict these beliefs. - Continue to encourage treatment. 12/28 - Pt states she will participate in family meeting with brother and sister-in -law. Concerns from 302 petitioning statements and safety planning should be discussed. Discharge is highly dependent on patient's ability to address these concerns and mitigate risk factors. - Pt refusing medications and outpatient therapy. - Continue to offer resources for outpatient treatment. 12/29 - Will obtain OP counseling appt tomorrow and likely discharge Presentation and treatment plan reviewed and discussed with Dr. Hammond who is in agreement with plan at this point in time. Discharge / Aftercare Planning Primary Care Physician: Name: Dr. Seay [facility] Therapist: Name: [facility] Date of Appointment: Jan 08, 2018 Time of Appointment: 1 p.m. Appointment Notes: Intake with Connie Fields, [address] [place] [address] Visit Code E&M Code: 87996 Inventory Assets Strengths: intelligence, strong support from family members. Needs: lacks insight into severity of situation, refusal for outpatient treatment Risk Factors Assessment : Yes /single/: Yes Health problems: No Mental Health Diagnoses: Yes (OCD) Substance use disorders: No Previous attempt: No Family history of suicide: No Previous psychiatric stay: No Hopelessness: No Smoker: No Protective Factors Assessment Jain beliefs: Yes : No Responsible for young children: No Employed: No (Retired) Stable relationships: No Supportive family: Yes Data Vital Signs Last 24 Hrs: Date Time Temp Pulse Resp B/P (MAP) Pulse Ox O2 Delivery O2 Flow Rate FiO2 12/29/17 06:43 36.6 62 14 101/62 73 110/68 Meds Administered Last 24 Hrs: Current Inpatient Medications Medications (Trade) Dose Ordered Sig/Yassine Route Start Time Stop Time Status Last Admin Dose Admin Acetaminophen (Tylenol Tab) 650 mg Q4H PRN PO 12/25/17 20:30 01/24/18 20:29 Bismuth Subsalicylate (Kaopectate Liqd) 15 ml PRN PRN PO 12/25/17 20:30 01/24/18 20:29 Al Hydroxide/Mg Hydroxide (Maalox Susp) 30 ml Q4H PRN PO 12/25/17 20:30 01/24/18 20:29 Magnesium Hydroxide (Milk Of Magnesia Susp) 30 ml DAILY PRN PO 12/25/17 20:30 01/24/18 20:29 Sodium Chloride ([place] Nasal Proctor) PRN PRN NA 12/25/17 20:30 01/24/18 20:29 Hydroxyzine HCl (Vistaril Tab) 50 mg HSZ PRN PO 12/25/17 20:30 01/24/18 20:29 12/28/17 21:49 50 MG Hydroxyzine HCl (Vistaril Tab) 25 mg Q4H PRN PO 12/25/17 20:30 01/24/18 20:29 Cholecalciferol (Vitamin D Tab) 1,000 inter.unit DAILY PO 12/26/17 09:00 01/25/18 08:59 12/29/17 08:29 1,000 INTER.UNIT Multivitamins (Multivitamin Tab) 1 tab DAILY PO 12/26/17 09:00 01/25/18 08:59 12/29/17 08:29 1 TAB Ranitidine HCl (zANTac TAB) 150 mg BID PO 12/25/17 21:00 01/24/18 20:59 12/29/17 08:29 150 MG Bimatoprost (Lumigan 0.01%) 1 drops HS OP 12/25/17 22:00 01/24/18 21:59 12/28/17 21:49 1 DROPS Lab Results Last 24 Hrs: 12/25/17 15:31 Red Blood Count 4.14, Mean Corpuscular Volume 98.6, Mean Corpuscular Hemoglobin 33.1, Mean Corpuscular Hemoglobin Concent 33.6, Mean Platelet Volume 9.7, Neutrophils (%) (Auto) 64.9, Lymphocytes (%) (Auto) 27.1, Monocytes (%) (Auto) 7.2, Eosinophils (%) (Auto) 0.3, Basophils (%) (Auto) 0.3, Neutrophils # (Auto) 3.78, Lymphocytes # (Auto) 1.58, Monocytes # (Auto) 0.42, Eosinophils # (Auto) 0.02, Basophils # (Auto) 0.02 12/25/17 15:31 Test 12/25/17 15:30 12/25/17 15:31 12/25/17 15:42 Urine Color YELLOW Urine Appearance CLEAR (CLEAR) Urine pH 6.5 (4.5-7.5) Urine Specific [place] 1.010 (1.000-1.030) Urine Protein NEG (NEG) Urine Glucose (UA) NEG (NEG) Urine Ketones NEG (NEG) Urine Occult Blood NEG (NEG) Urine Nitrite NEG (NEG) Urine Bilirubin NEG (NEG) Urine Urobilinogen NEG (NEG) Urine Leukocyte Esterase NEG (NEG) Urine Test NEG (NEG) Urine Opiates Screen NEG (NEG) Urine Methadone, Qualitative NEG (NEG) Urine Barbiturates NEG (NEG) Urine Phencyclidine (PCP) Level NEG (NEG) Ur Amphetamine/Methamphetamine NEG (NEG) MDMA (Ecstasy) Screen NEG (NEG) Urine Benzodiazepines Screen NEG (NEG) Urine Cocaine Metabolite NEG (NEG) Urine Marijuana (THC) NEG (NEG) White Blood Count 5.83 K/uL (4.8-10.8) Red Blood Count 4.14 M/uL (4.2-5.4) Hemoglobin 13.7 g/dL (12.0-16.0) Hematocrit 40.8 % (37-47) Mean Corpuscular Volume 98.6 fL (80-100) Mean Corpuscular Hemoglobin 33.1 pg (25-34) Mean Corpuscular Hemoglobin Concent 33.6 g/dl (32-36) Platelet Count 232 K/uL (130-400) Mean Platelet Volume 9.7 fL (7.4-10.4) Neutrophils (%) (Auto) 64.9 % Lymphocytes (%) (Auto) 27.1 % Monocytes (%) (Auto) 7.2 % Eosinophils (%) (Auto) 0.3 % Basophils (%) (Auto) 0.3 % Neutrophils # (Auto) 3.78 K/uL (1.4-6.5) Lymphocytes # (Auto) 1.58 K/uL (1.2-3.4) Monocytes # (Auto) 0.42 K/uL (0.11-0.59) Eosinophils # (Auto) 0.02 K/uL (0-0.5) Basophils # (Auto) 0.02 K/uL (0-0.2) RDW Standard Deviation 45.1 fL (36.4-46.3) RDW Coefficient of Variation 12.6 % (11.5-14.5) Immature Granulocyte % (Auto) 0.2 % Immature Granulocyte # (Auto) 0.01 K/uL (0.00-0.02) Anion Gap 6.0 mmol/L (3-11) Est Creatinine Clear Calc Drug Dose 64.4 ml/min Estimated GFR () 83.4 Estimated GFR (Non- 71.9 BUN/Creatinine Ratio 14.7 (10-20) Calcium Level 9.6 mg/dl (8.5-10.1) Total Bilirubin 0.5 mg/dl (0.2-1) Direct Bilirubin 0.2 mg/dl (0-0.2) Aspartate Amino Transf (AST/SGOT) 21 U/L (15-37) Alanine Aminotransferase (ALT/SGPT) 34 U/L (12-78) Alkaline Phosphatase 81 U/L (45-117) Total Protein 7.8 gm/dl (6.4-8.2) Albumin 4.5 gm/dl (3.4-5.0) Thyroid Stimulating Hormone (TSH) 3.350 uIu/ml (0.300-4.500) Salicylates Level < 1.7 mg/dl (2.8-20) Acetaminophen Level < 2 ug/ml (10-30) Ethyl Alcohol mg/dL < 3.0 mg/dl (0-3) Bedside Glucose 119 mg/dl (70-90) Problem Qualifiers (1) OCD (obsessive compulsive disorder): Obsessive-compulsive disorder type: mixed obsessional thoughts and acts Qualified Codes: F42.2 - Mixed obsessional thoughts and acts
[2017-12-29] MEDS: BIMATOPROST 0.01% OP SOLN 2.5 ML BTL OP SCH (21:19)
[2017-12-29] MEDS: hydrOXYzine HCL 25 MG TAB PO PRN (21:20)
[2017-12-30 06:52] VITALS: BP_SYST 106; BP_SYST 109; BP_DIAS 67; BP_DIAS 72; PULSE 66; PULSE 77; TEMP 36.3
[2017-12-30] MEDS: RANITIDINE HCL 150 MG TAB PO SCH (08:24)
[2017-12-30] MEDS: CHOLECALCIFEROL 1000 INTER.UNIT TAB PO SCH (08:24)
[2017-12-30] MEDS: MULTIVITAMIN TAB PO SCH (08:24)
[2017-12-30] MEDS ORDERED: ATR25 PO (09:44)
--- NOTE | 2017-12-30 09:51 | Discharge Instructions ---
Discharge Information Report Includes Report will include the: Discharge Instructions & Summary Admission Admission Date / Time: Dec 25, 2017 at 20:28 Reason for Admission: OCD Discharge Discharge Diagnosis / Problem: OCD Condition at Discharge: Good Discharge Goals Goal(s): Decrease discomfort, Improve disease control Activity Recommendations Activity Limitations: resume your previous activity . Instructions / Follow-Up Instructions / Follow-Up . SPECIAL CARE INSTRUCTIONS: 1. Follow through with your scheduled aftercare appointments. If unable to keep an appointment, please call to reschedule. 2. Take your medication only as prescribed. Medication should not be changed or stopped without the approval of your doctor. In the event of worsening symptoms or concerns about side effects, contact your doctor immediately. 3. Utilize new healthy coping skills, anger management skills, and stress management skills learned during your hospitalization. Journal feelings and process them with a support person. Identify stressors or situations that may result in relapse, deterioration or inappropriate behaviors and develop a plan to deal with those issues. 4. If your coping skills are ineffective and you are in crisis, contact your outpatient providers for direction. If unable to reach your providers, please call the CAN HELP LINE AT or go to the closest Emergency Room. 5. Avoid alcohol and un-prescribed drugs. 6. You have been provided with the Mental Health Advance Directives Pamphlet for your review. AFTERCARE APPOINTMENTS: * Please call your insurance company prior to your scheduled appointment to confirm your aftercare providers are covered. Take your insurance information to your appointments. . Discharge / Aftercare Planning Primary Care Physician: Name: Dr. Seay [facility] Appointment Notes: appointment to be sc heduled by pt as needed Therapist: Name Of Therapist: Moni York - Faustino Walker Date of Appointment: Jan 07, 2018 Time of Appointment: 11:00 am Appointment Comments: [id number] [facility] [id number] . Follow-Up Care Plan for Follow-Up Care: The patient is on no meds. She will have therapy follow up within 10 days with Faustino Walker. Current Hospital Diet Patient's current hospital diet: Regular Diet Discharge Diet Recommended Diet: Regular Diet Procedures Procedures Performed: No Pending Studies Pending Studies at Discharge: No Medical Emergencies . Who to Call and When: Medical Emergencies: For questions or emergencies related to your hospital stay, please contact the Inpatient Behavioral Health Unit at [phone]. A substance abuse clinician is on-call 24/06 for the Behavioral Health Unit for emergencies At any time you feel your situation is an emergency, you may also call 911 immediately. . Non-Emergent Contact Non-Emergency issues call your: Primary Care Provider, Therapist Advance Directives Existing Advance Directive: No Do You Have an Existing Mental: No Existing Living Will: No Existing Power of Salesforce Developer: No The Person Making Decisions: Patient's brother Advance Directives Info Given: To Pt/S.O. Advance Directives Reason: Declines as Mental Health Visit. Discharge Summary Admission HPI Per the Admitting provider: Valentina Ibrahim is a 57-year-old female brought to the ED upon 302 warrant with petitioning statements from her brother and qcvhkk-be-ugp. Pt agreed to sign in voluntarily and was admitted to [address] [place] [address]. Pt states she was seen for a doctor 's appointment today and had filled out a questionnaire, which concerned her doctor. Pt reports filling out the survey (presumed to be PHQ-9) "based on one of my bad days", but states "I was actually having a really good day yesterday" . Due to doctor's concern coupled with reports of significant decline by her brother and wakbex-us-bps, the patient was referred for mental health evaluation. Pt states she went home after her doctor's appointment and completed several activities when the police arrived at her door to take her to the hospital. Pt feels that this concern was exaggerated. Pt states she will express concerning thoughts to her brother as a way to "share ", but states "expressed thoughts are not always something worth acting on." She reports having occasional fleeting thoughts of SI/HI which are prompted by the news or headlines in the paper. Pt states, "sometimes I think life is hard , but I think about those things and realize I would never do that". She has noticed these thoughts with her own life, but has also thought "sometimes people hurt people they love, I realized I could do that to my dsyapp-yg-vsq, but I would never want to because I care for her." Pt states she is typically able to dismiss these thoughts, but on occasion will share them with her brother to get assurance. Pt states she has a history of OCD and notices severity of hand washing behavior changes based on activity level and distractors. Pt reports she was sick with the flu around Thanksgiving this year and was concerned about spreading her germs to her family. Due to these concerns, handwashing behavior increased significant. Pt states she is now working to decrease this and reports she has been effective. Pt "I will always wash my hands before and after meals, when I come home from the store, and after the bathroom - it's the other events that I'm flexible with". Pt reports she will take advantage of phone calls with her brother to ask for reassurance of her behavior. Pt remembers growing up with these behaviors, but states the severity changes. She reports mood symptoms in the context of her heightened obsessions stating, "I get depressed when I can't break the cycle". Reported depression lasts for several days at most. She denies anhedonia, difficulty concentrating, trouble with sleeping and eating, and feeling hopeless. Pt states her recent weight loss is due to "being distracted with my hand washing, I would forget to eat". She states she is now at a weight she wishes to maintain. Concerns from the brother and kqduew-bx-oft seem to be greater than what the patient is expressing in our encounter today. Reported concern for decreased functioning, weight loss, and increased intrusive thoughts have led to petitioning statements for the patient's admission. Extensive petitioning statements with supplemental "running record" from her bsytyd-ll-ykt of comments made recently. Per brother, pt mentioned "thought of us finding her dangling from a rope in her house", walking in a graveyard stating "and all those amanda people". Efeqal-ew-dia, Etta, remembers comments of "I wish I had a button I could push and just be out of here". Etta reports patient has been accepted by the [facility], but can only move there is 3 years. Pt is eager for this as "I would just sit in a fpc and not think about anything". Petitioning statements are out of proportion to patient's words at this encounter. It would be extremely beneficial to engage her family in a meeting to gain collateral information. Pt denies current SI/HI, A/V hallucinations, paranoia, vladimir, PTSD, eating disorder, and other psychosis. Pt reports she is not interested in medications or therapy at this point in time as she feels this is something she can control with the support of her family. Hospital Course (1) OCD (obsessive compulsive disorder) 12/26 - Pt refuses medications at this time. Unwilling for handout to review on SSRIs which could help treat obsessions compulsions. Refuses outpatient treatment at this time. - Encourage, and potentially mandate, family meeting with brother and sister- in-law as patients account is incongruent to statements made by family members. Difficult to determine severity of decreased functioning and insight into illness based on patient's reports alone. - Encourage participation in group therapy and other group-based programming on the unit. - Coordination of care with outpatient providers. 12/27 - Pt continues to refuse medications and outpatient therapy. She has been participating in groups, but will not engage in additional treatment. - Would be ideal to have family meeting with brother and sasfgo-ew-shh to address their issues as patient feels she is here as a misunderstanding, but their accounts contradict these beliefs. - Continue to encourage treatment. 12/28 - Pt states she will participate in family meeting with brother and sister-in -law. Concerns from 302 petitioning statements and safety planning should be discussed. Discharge is highly dependent on patient's ability to address these concerns and mitigate risk factors. - Pt refusing medications and outpatient therapy. - Continue to offer resources for outpatient treatment. 12/29 - Will obtain OP counseling appt tomorrow and likely discharge Risk Factors Assessment : Yes /single/: Yes Health problems: No Mental Health Diagnoses: Yes (OCD) Substance use disorders: No Previous attempt: No Family history of suicide: No Previous psychiatric stay: No Hopelessness: No Smoker: No Protective Factors Assessment Presybeterian beliefs: Yes : No Responsible for young children: No Employed: No (Retired) Stable relationships: No Supportive family: Yes Day of Discharge Assessment COURSE OF HOSPITALIZATION: The patient was on our unit for 5 days. She was admitted voluntarily after experiencing intrusive, ego dystonic thoughts about killing her nwonhg-fx-div. She admits to having OCD with a lot of handwashing and cleanliness issues but had in working on a puzzle and had an intrusive thought that when she found the last piece she would have to kill her sister-in- law. She had no plan or intent to do so, had been talking with her brother about these intrusive thoughts. There was such concern on the part of her family because she had been deteriorating and demonstrating an increase in her obsessive compulsive thoughts and behaviors that they brought her to the emergency room. During her stay was recommended she have a trial of an SSRI to target her OCD which she declined. She does not want to take medications. She feels that her symptoms wax and wane and admits that her handwashing behaviors had become intense prior to admission. She denied throughout her stay that she had any plan or intent to harm her nsdnij-xl-mhd or anybody else for that matter. She did not want to have a meeting with her brother and twanbb-ke-dmb but was strong encouragement, did allow them to come in. They both expressed their concern about her behaviors and the thoughts that she should engage in treatment as this has been coming on for a long time. Again, the brother and lkgxcp-ge-sts are aware of her intrusive thoughts about harming the sister-in- law but had no fears that she would act on those thoughts. After that meeting, the patient did agree to follow up therapy, and a referral was made to Faustino Walker whom she will see on January 07. She was initially very uncomfortable on the unit as several patients and staff attending the same anglican she does. She was eventually able to calm down and find comfort and was reassured her of her confidentiality. She denied any suicidal thinking throughout her stay. She did admit to having handwashing behaviors here, but nowhere near the level they had been at home. She did tolerate a shared bathroom with her roommate, and was able to use the public shower which she was worried she would not. DAY OF DISCHARGE ASSESSMENT: Today the patient is requesting discharge. She continues to deny any suicidal and specifically denies any homicidal ideation. She continues to agree to therapy and is looking forward to going home. Today she is casually and appropriately dressed and groomed. Gait and station are within normal limits. Eye contact is good. Affect is restricted but able to smile. Speech is of normal rate volume and tone. Thoughts are organized, goal directed, and without evidence of thought disorder. Recent and remote memory are intact per conversation. Intelligence is estimated to be average. Insight and judgment are improved over admission. Laboratory Test 12/25/17 15:30 12/25/17 15:31 12/25/17 15:42 Urine Color YELLOW Urine Appearance CLEAR Urine pH 6.5 Urine Specific [place] 1.010 Urine Protein NEG Urine Glucose (UA) NEG Urine Ketones NEG Urine Occult Blood NEG Urine Nitrite NEG Urine Bilirubin NEG Urine Urobilinogen NEG Urine Leukocyte Esterase NEG Urine Test NEG Urine Opiates Screen NEG Urine Methadone, Qualitative NEG Urine Barbiturates NEG Urine Phencyclidine (PCP) Level NEG Ur Amphetamine/Methamphetamine NEG MDMA (Ecstasy) Screen NEG Urine Benzodiazepines Screen NEG Urine Cocaine Metabolite NEG Urine Marijuana (THC) NEG White Blood Count 5.83 Red Blood Count 4.14 Hemoglobin 13.7 Hematocrit 40.8 Mean Corpuscular Volume 98.6 Mean Corpuscular Hemoglobin 33.1 Mean Corpuscular Hemoglobin Concent 33.6 Platelet Count 232 Mean Platelet Volume 9.7 Neutrophils (%) (Auto) 64.9 Lymphocytes (%) (Auto) 27.1 Monocytes (%) (Auto) 7.2 Eosinophils (%) (Auto) 0.3 Basophils (%) (Auto) 0.3 Neutrophils # (Auto) 3.78 Lymphocytes # (Auto) 1.58 Monocytes # (Auto) 0.42 Eosinophils # (Auto) 0.02 Basophils # (Auto) 0.02 RDW Standard Deviation 45.1 RDW Coefficient of Variation 12.6 Immature Granulocyte % (Auto) 0.2 Immature Granulocyte # (Auto) 0.01 Sodium Level 138 Potassium Level 3.8 Chloride Level 106 Carbon Dioxide Level 26 Anion Gap 6.0 Blood Urea Nitrogen 13 Creatinine 0.88 Est Creatinine Clear Calc Drug Dose 64.4 Estimated GFR () 83.4 Estimated GFR (Non- 71.9 BUN/Creatinine Ratio 14.7 Random Glucose 120 Calcium Level 9.6 Total Bilirubin 0.5 Direct Bilirubin 0.2 Aspartate Amino Transferase (AST) 21 Alanine Aminotransferase (ALT) 34 Alkaline Phosphatase 81 Total Protein 7.8 Albumin 4.5 Thyroid Stimulating Hormone (TSH) 3.350 Salicylates Level < 1.7 Acetaminophen Level < 2 Ethyl Alcohol mg/dL < 3.0 POC Glucose 119 Total Time Total Time Spent (min): Greater than 30 minutes Total Time Included: examination of the patient, discharge planning, medication reconciliation, communication with other providers Tobacco Cessation at Discharge Smoking Status: Never Smoker FDA approved Prescription: non-smoker Problem Qualifiers (1) OCD (obsessive compulsive disorder): Obsessive-compulsive disorder type: mixed obsessional thoughts and acts Qualified Codes: F42.2 - Mixed obsessional thoughts and acts
== END 2017-12-30 14:13 | disposition home or self-care (01) | DRG 882 ==
LOC: EDBD 14:55 → C.EDA 14:58 → C.MHU 20:28 → ENRESERV 21:13 → C.MHU 12-27 20:26
PROVIDERS: ADMIT Psychiatry & Neurology Psychiatry; ATTEND Psychiatry & Neurology Psychiatry
DX: F42.8 Other obsessive-compulsive disorder (principal); Z85.3 Personal history of malignant neoplasm of breast; K21.9 Gastro-esophageal reflux disease without esophagitis

== ENCOUNTER 2018-02-01 11:16 | Inpatient (IN) | payer BC, OTHER ==
[~2018-02-01] VITALS: Ht 167.6 cm; Wt 59.6 kg
[~2018-02-01 11:16] MED LIST: ASCO100061 PO; ATR25 PO; BIMA0.01 OP; CHOL1000 PO; MULT-506 PO; RANI150T3 PO; VITACAP37 PO
--- NOTE | 2018-02-01 11:44 | EMERGENCY ROOM VISIT NOTE ---
History Report prepared by Carlyn: Yumiko Cruz Under the Supervision of: Dr. Nora Pagan M.D. First contact with patient: 11:25 Chief Complaint: MENTAL HEALTH EVALUATION Stated Complaint: OCD ISSUES History of Present Illness The patient is a 57 year old female who presents to the Emergency Room with complaints of worsening OCD symptoms. She is accompanied by her elnbd-fk-qji and a friend. She states "I have these thoughts, and if I don't do something the right way, then I feel like I need to hurt someone". She has been seeing a "Scientology counselor," Dr. Walker, and has tried "praying" her thoughts away with no relief. Dr. Walker referred her to a psychiatrist, so she called [facility] yesterday to make an appointment with Dr. Valdovinos, but she has not gotten a call back yet. The patient reports she has had worsening OCD thoughts since this past October 2017. She was sick with flu type symptoms for several days and states she didn't leave the house and her OCD worsened. She was prescribed 25 mg of daily Zoloft [address] Seay at [facility], her PCP. It has provided minimal relief. The patient admits she has thought about "just not being here anymore", but states "I wouldn't have the nerve". She does not smoke and does not drink alcohol. Last night she took Benadryl to help her sleep. The only other daily medication she takes is ranitidine, for GERD, but she has not taken it in several days. The patient underwent a lumpectomy in January 2010. Her family notes she will spend up to 2 hours in the shower because of doubts of cleanliness and has also stopped caring for her bird and using the bathroom regularly due to her OCD symptoms. 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 A total of 10 systems reviewed and were otherwise negative. Past Medical & Surgical Medical Problems: (1) Acid reflux (2) HX: breast cancer (3) OCD (obsessive compulsive disorder) Surgical Problems: (1) History of lumpectomy Social History Smoking Status: Never Smoker Alcohol Use: occasionally Drug Use: none Marital Status: single Housing Status: lives alone Occupation Status: retired Current/Historical Medications Scheduled Ascorbic Acid (Ascorbic Acid), 1 TAB PO Q2D Bimatoprost (Lumigan), 1 DROPS OP HS Cholecalciferol (Vitamin D3), 1,000 UNITS PO DAILY Multivitamin (Multivitamin), 1 TAB PO DAILY Ranitidine Hcl (Zantac), 150 MG PO BID Sertraline (Zoloft), 25 MG PO QAM Vitamin E (E-400), 1 CAP PO Q2D Scheduled PRN Diphenhydramine Hcl (Benadryl Allergy), 50 MG PO HS PRN for Sleep Allergies Coded Allergies: Clindamycin (Unverified Allergy, Mild, rash, 12/25/17) Penicillins (Unverified Allergy, Unknown, rash, 12/25/17) Sulfamethoxazole (Unverified Allergy, Unknown, unknown, 12/25/17) doesn't remember Adhesives (Unverified Adverse Reaction, Severe, blisters, 12/25/17) Physical Exam Vital Signs Date Time Temp Pulse Resp B/P (MAP) Pulse Ox O2 Delivery O2 Flow Rate FiO2 02/01/18 14:33 87 22 127/76 99 02/01/18 14:25 87 22 127/76 99 Room Air 02/01/18 13:15 37.0 76 20 136/80 100 Room Air 02/01/18 11:19 37.0 74 18 144/86 98 Room Air Physical Exam Vital signs reviewed. General: Anxious-appearing 57 year old female, in no significant distress. HEENT: No scleral icterus, PERRLA, neck supple. Atraumatic. Cardiovascular: Regular rate and rhythm, no extra sounds. Pulmonary: Clear to auscultation bilaterally, normal work of breathing. Abdomen: Soft, nontender, nondistended, positive bowel sounds. Musculoskeletal: Atraumatic, no peripheral edema. Neurologic: Patient awake alert and oriented x 3 Skin: Warm, dry, no rash Psychiatric: Positive SI and HI. Medical Decision & Procedures Laboratory Results 02/01/18 11:40 Red Blood Count 4.37, Mean Corpuscular Volume 96.6, Mean Corpuscular Hemoglobin 33.4, Mean Corpuscular Hemoglobin Concent 34.6, Mean Platelet Volume 9.4, Neutrophils (%) (Auto) 65.0, Lymphocytes (%) (Auto) 25.0, Monocytes (%) (Auto) 9.2, Eosinophils (%) (Auto) 0.3, Basophils (%) (Auto) 0.4, Neutrophils # (Auto) 4.45, Lymphocytes # (Auto) 1.71, Monocytes # (Auto) 0.63, Eosinophils # (Auto) 0.02, Basophils # (Auto) 0.03 02/01/18 11:39 Test 02/01/18 11:25 02/01/18 11:39 02/01/18 11:40 Urine Color YELLOW Urine Appearance CLEAR (CLEAR) Urine pH 6.0 (4.5-7.5) Urine Specific [place] 1.021 (1.000-1.030) Urine Protein NEG (NEG) Urine Glucose (UA) NEG (NEG) Urine Ketones TRACE (NEG) Urine Occult Blood NEG (NEG) Urine Nitrite NEG (NEG) Urine Bilirubin NEG (NEG) Urine Urobilinogen NEG (NEG) Urine Leukocyte Esterase NEG (NEG) Anion Gap 6.0 mmol/L (3-11) Est Creatinine Clear Calc Drug Dose 59.7 ml/min Estimated GFR () 76.0 Estimated GFR (Non- 65.6 BUN/Creatinine Ratio 18.1 (10-20) Calcium Level 9.3 mg/dl (8.5-10.1) Total Bilirubin 0.6 mg/dl (0.2-1) Direct Bilirubin 0.1 mg/dl (0-0.2) Aspartate Amino Transf (AST/SGOT) 16 U/L (15-37) Alanine Aminotransferase (ALT/SGPT) 25 U/L (12-78) Alkaline Phosphatase 76 U/L (45-117) Total Protein 7.5 gm/dl (6.4-8.2) Albumin 4.2 gm/dl (3.4-5.0) Salicylates Level < 1.7 mg/dl (2.8-20) Acetaminophen Level < 2 ug/ml (10-30) Ethyl Alcohol mg/dL < 3.0 mg/dl (0-3) White Blood Count 6.85 K/uL (4.8-10.8) Red Blood Count 4.37 M/uL (4.2-5.4) Hemoglobin 14.6 g/dL (12.0-16.0) Hematocrit 42.2 % (37-47) Mean Corpuscular Volume 96.6 fL (80-100) Mean Corpuscular Hemoglobin 33.4 pg (25-34) Mean Corpuscular Hemoglobin Concent 34.6 g/dl (32-36) Platelet Count 239 K/uL (130-400) Mean Platelet Volume 9.4 fL (7.4-10.4) Neutrophils (%) (Auto) 65.0 % Lymphocytes (%) (Auto) 25.0 % Monocytes (%) (Auto) 9.2 % Eosinophils (%) (Auto) 0.3 % Basophils (%) (Auto) 0.4 % Neutrophils # (Auto) 4.45 K/uL (1.4-6.5) Lymphocytes # (Auto) 1.71 K/uL (1.2-3.4) Monocytes # (Auto) 0.63 K/uL (0.11-0.59) Eosinophils # (Auto) 0.02 K/uL (0-0.5) Basophils # (Auto) 0.03 K/uL (0-0.2) RDW Standard Deviation 43.3 fL (36.4-46.3) RDW Coefficient of Variation 12.3 % (11.5-14.5) Immature Granulocyte % (Auto) 0.1 % Immature Granulocyte # (Auto) 0.01 K/uL (0.00-0.02) Urine Opiates Screen NEG (NEG) Urine Methadone, Qualitative NEG (NEG) Urine Barbiturates NEG (NEG) Urine Phencyclidine (PCP) Level NEG (NEG) Ur Amphetamine/Methamphetamine NEG (NEG) MDMA (Ecstasy) Screen NEG (NEG) Urine Benzodiazepines Screen NEG (NEG) Urine Cocaine Metabolite NEG (NEG) Urine Marijuana (THC) NEG (NEG) Laboratory results per my review. ED Course 1135: Past medical records reviewed. The patient was evaluated in room A5. A complete history and physical examination was performed. 1425: I spoke with our ED mental health quality audit representative. The patient has been accepted upstairs on a 201 petition. She will be further evaluated. Medical Decision DDx: Etiologies such as mood disorder, infection, hypoglycemia, electrolyte abnormalities, cardiac sources, intracerebral event, toxicologic, neurologic, as well as others were entertained. This pt was evaluated and felt to be in need of inpt psychiatric treatment. She was medically cleared and evaluated by . She was accepted on 201 ( voluntary) to [facility] for further management. Medication Reconcilliation Current Medication List: was personally reviewed by me Blood Pressure Screening Patient's blood pressure: Normal blood pressure Blood pressure disposition: Did not require urgent referral Impression Primary Impression: Anxiety Additional Impressions: Suicidal thoughts Homicidal thoughts Mood disorder Scribe Attestation The scribe's documentation has been prepared under my direction and personally reviewed by me in its entirety. I confirm that the note above accurately reflects all work, treatment, procedures, and medical decision making performed by me. Departure Information Dispostion Still a Patient (The patient will be further evaluated by the inpatient Psychiatry team) Referrals Sharita Seay M.D. (PCP) Forms HOME CARE DOCUMENTATION FORM, IMPORTANT VISIT INFORMATION Patient Instructions [facility] Problem Qualifiers
[2018-02-01 11:54] LABS: BASO % 0.4 %; BASO ABS # 0.03 K/uL (0-0.2); EOS % 0.3 %; EOS ABS # 0.02 K/uL (0-0.5); HEMATOCRIT 42.2 % (37-47); HEMOGLOBIN 14.6 g/dL (12.0-16.0); IG# 0.01 K/uL (0.00-0.02); LYMPH ABS # 1.71 K/uL (1.2-3.4); MEAN CELL VOLUME 96.6 fL (80-100); MEAN CORPUSCULAR HEMOGLOBIN 33.4 pg (25-34); MEAN CORPUSCULAR HGB CONC 34.6 g/dl (32-36); MEAN PLATELET VOLUME 9.4 fL (7.4-10.4); MONO % 9.2 %; MONO ABS # 0.63 K/uL (0.11-0.59); NEUT ABS # 4.45 K/uL (1.4-6.5); PLATELET COUNT 239 K/uL (130-400); RED CELL DISTRIBUTION WIDTH CV 12.3 % (11.5-14.5); RED CELL DISTRIBUTION WIDTH SD 43.3 fL (36.4-46.3); WHITE BLOOD COUNT 6.85 K/uL (4.8-10.8)
[2018-02-01] MEDS ORDERED: SERT25TA PO (12:05)
[2018-02-01] MEDS ORDERED: DIPH1TAB87 PO (12:06)
[2018-02-01 12:12] LABS: ALBUMIN 4.2 gm/dl (3.4-5.0); CALCIUM 9.3 mg/dl (8.5-10.1); CREATININE 0.95 mg/dl (0.60-1.20); POTASSIUM 3.9 mmol/L (3.5-5.1)
[2018-02-01 12:15] LABS: TOTAL PROTEIN 7.5 gm/dl (6.4-8.2)
[2018-02-01 14:33] VITALS: O2SAT 99
[2018-02-01] MEDS ORDERED: ALUMINUM/MAGNESIUM SUSP 30 ML UDC PO PRN ×2 (15:30)
[2018-02-01] MEDS ORDERED: SODIUM CHLORIDE 0.65% NA SOLN 45 ML (OCEAN) PRN ×2 (15:30)
[2018-02-01] MEDS ORDERED: BISMUTH SUBSALICYLATE PER ML OMNICELL CHARGE PO PRN ×2 (15:30)
[2018-02-01] MEDS ORDERED: ACETAMINOPHEN 325 MG TAB PO PRN ×2 (15:30)
[2018-02-01] MEDS ORDERED: MAGNESIUM HYDROXIDE SUSP 30 ML UDC PO PRN ×2 (15:30)
[2018-02-01] MEDS ORDERED: hydrOXYzine HCL 25 MG TAB PO PRN ×3 (15:30)
[2018-02-01] MEDS: hydrOXYzine HCL 25 MG TAB PO PRN (16:04)
[2018-02-01 16:26] VITALS: BP 133/74; PULSE 89; TEMP 36.9; Ht 167.6 cm; Wt 59.6 kg
--- NOTE | 2018-02-01 16:31 | Psychiatric History & Physical ---
History Date of Service Feb 01, 2018. Identifying Data Valentina Ibrahim is a 57-year-old female admitted on Feb 01, 2018 at 14:45 on a voluntary status. She is known to us from prior psychotropic hospitalization -12/30/17. During her recent psychiatric hospitalization she refused pharmacotherapy for treatment of OCD. She re-presents with worsening symptoms through the [facility] ER. Chief Complaint I thought I would get better but it's getting worse History of Present Illness Patient presented to the ER complaining of worsening OCD in company of her niece in law and a friend from [employer]. She indicated that she felt the need to hurt someone. It was noted that she had been seeing a Anglican counselor, Faustino Walker, and was pursuing psychiatric treatment with Dr. Valdovinos at [facility] but was not yet scheduled for an intake appointment there. She complained of worsening OCD symptoms since October 2017. Sick with a febrile illness in November seemingly exacerbated her anxiety symptoms. Was prescribed 25 mg of sertraline by her PCP, Dr. Seay, approximately 10 days prior to her presentation here. Only minimal relief reported. Admitted to thoughts of "just not being here anymore" but indicated that she wouldn't "have the nerve" to commit suicide. No smoking no alcohol or drugs. Did take Benadryl for sleep last night. Family reported that she was spending hours in the shower because of doubts about cleanliness and had stopped caring for her beloved bird. She was medically cleared and accepted for psychiatric inpatient hospitalization on a voluntary status. Reviewing the intake note from 12/25/2017, patient presented at that time on encouragement from family who had expressed worry that she might hurt herself. She noted a history of OCD, severe handwashing behaviors, worries about contamination. She noted a long history of similar behaviors with varying intensity over the years. Also noted that when she gets depressed she can't "break the cycle." During her hospitalization she refused medication and denied that she had an intent or plan for harming her [id number] and that thought was identified as ego-dystonic. She was willing to pursue psychotherapy as an outpatient and was discharged after a 5 day stay. On interview with me today, which is done in company of her niece in law and her friend from [employer] with her permission for purpose of comfort, patient describes declining condition since time of last admission. She has been eating little and weight downtrending. Describes feeling so preoccupied with thought of having to clean up after a meal that she is not able to cook for herself and typically eating only if someone takes her out or brings her food. Appetite is diminished. She describes severely compelling intrusive thoughts, commonly associated with a fear that she will have to do something bad to someone else such as killing her family members, or that something bad will happen if she does not "neutralize" the trigger. Triggers seem to be quite variable from physical touching of parts of her body, to miss speaking a word. To compensate she will pray and ask for forgiveness. She describes spending hours washing her hands and showering. Upon completing these tasks she will often have to return because she begins to doubt that she completed the task with sufficient diligence. At times she experiences patterns in her rituals. She acknowledges diminished interest and energy, declining mood, feelings of increasing hopelessness and thoughts of being better off but denies active suicidal ideation or intent. Regarding homicidal impulses she again identifies these as things that she does not want to do but fears that she may be forced to do them if she does not effectively neutralize the trigger. Intellectually she is able to state that she has never hurt anyone in the past, does not want to hurt anyone, and is unlikely to do so, however, despite theological basis of this type of thinking, she is unable to reassure herself. She denies auditory or visual hallucinations. She sleeps poorly chronically and has been feeling recently more restless but denies excessive energy or symptoms of obvious hypomania or vladimir. She has little to say about the Zoloft recently started by her PCP. She expresses willingness to consider pharmacotherapy as her symptoms have been worsening. "I considered other choice." She does ask not to be given the medication handouts as she perceives she is likely to worry about the potential for side effects. She does describe being commonly hyperaware of somatic symptoms but denies excessive utilization of medical resources. Past Psychiatric History Current OP Treatment: therapist (Faustino Walker) Prior OP Treatment: no prior treatment Prior Psych Hospitalizations: [facility] (5 day stay for OCD 2017 - refused meds) Access to a Gun: No Suicide Attempts: No Past Medication Trials zoloft - started by PCP 01/2018 Past Medical/Surgical History History of Concussion/Seizure: No (1) HX: breast cancer (2) OCD (obsessive compulsive disorder) (3) Suicidal thoughts Allergies Allergies: Coded Allergies: Clindamycin (Unverified Allergy, Mild, rash, 12/25/17) Penicillins (Unverified Allergy, Unknown, rash, 12/25/17) Sulfamethoxazole (Unverified Allergy, Unknown, unknown, 12/25/17) doesn't remember Adhesives (Unverified Adverse Reaction, Severe, blisters, 12/25/17) Home Medications Scheduled Ascorbic Acid (Ascorbic Acid), 1 TAB PO Q2D Bimatoprost (Lumigan), 1 DROPS OP HS Cholecalciferol (Vitamin D3), 1,000 UNITS PO DAILY Multivitamin (Multivitamin), 1 TAB PO DAILY Ranitidine Hcl (Zantac), 150 MG PO BID Sertraline (Zoloft), 25 MG PO QAM Vitamin E (E-400), 1 CAP PO Q2D Scheduled PRN Diphenhydramine Hcl (Benadryl Allergy), 50 MG PO HS PRN for Sleep Family History FH: alcoholism FATHER FH: bipolar disorder niece History of Suicide: No History of Substance Abuse: Yes Psychiatric History: Yes Alcohol Use Alcohol Use In Past 12 Months: No Smoking Use Smoking Status: Never Smoker Substance History denies Personal History Lives in: [place], [place] Education: graduated college 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 Relationship History: never Children: None Spiritual Affiliation: Anglican. Member of [employer] but does not attend recently Legal History: none Psychological Trauma History: Significant Loss, Significant Injury Review of Systems Psychiatric review of systems and 10 point review of systems otherwise negative except as per history of present illness Constitutional: other (weight loss) Gastrointestinal: other (appetite loss) Neurologic: reports: other (restlessness) Examination Physical Examination A physical exam was performed in the ER prior to admission to the unit by Dr Pagan. I accept that physical as correct/medical clearance for the inpatient physical exam. Vital Signs Vital Signs Past 12 Hours Date Time Temp Pulse Resp B/P (MAP) Pulse Ox O2 Delivery O2 Flow Rate FiO2 02/01/18 14:33 87 22 127/76 99 02/01/18 14:25 87 22 127/76 99 Room Air 02/01/18 13:15 37.0 76 20 136/80 100 Room Air 02/01/18 11:19 37.0 74 18 144/86 98 Room Air Laboratory Results Last 24 Hours Test 02/01/18 11:25 02/01/18 11:39 02/01/18 11:40 Urine Color YELLOW Urine Appearance CLEAR Urine pH 6.0 Urine Specific [place] 1.021 Urine Protein NEG Urine Glucose (UA) NEG Urine Ketones TRACE Urine Occult Blood NEG Urine Nitrite NEG Urine Bilirubin NEG Urine Urobilinogen NEG Urine Leukocyte Esterase NEG Sodium Level 139 mmol/L Potassium Level 3.9 mmol/L Chloride Level 104 mmol/L Carbon Dioxide Level 29 mmol/L Anion Gap 6.0 mmol/L Blood Urea Nitrogen 17 mg/dl Creatinine 0.95 mg/dl Est Creatinine Clear Calc Drug Dose 59.7 ml/min Estimated GFR () 76.0 Estimated GFR (Non- 65.6 BUN/Creatinine Ratio 18.1 Random Glucose 100 mg/dl Calcium Level 9.3 mg/dl Total Bilirubin 0.6 mg/dl Direct Bilirubin 0.1 mg/dl Aspartate Amino Transf (AST/SGOT) 16 U/L Alanine Aminotransferase (ALT/SGPT) 25 U/L Alkaline Phosphatase 76 U/L Total Protein 7.5 gm/dl Albumin 4.2 gm/dl Salicylates Level < 1.7 mg/dl Acetaminophen Level < 2 ug/ml Ethyl Alcohol mg/dL < 3.0 mg/dl White Blood Count 6.85 K/uL Red Blood Count 4.37 M/uL Hemoglobin 14.6 g/dL Hematocrit 42.2 % Mean Corpuscular Volume 96.6 fL Mean Corpuscular Hemoglobin 33.4 pg Mean Corpuscular Hemoglobin Concent 34.6 g/dl Platelet Count 239 K/uL Mean Platelet Volume 9.4 fL Neutrophils (%) (Auto) 65.0 % Lymphocytes (%) (Auto) 25.0 % Monocytes (%) (Auto) 9.2 % Eosinophils (%) (Auto) 0.3 % Basophils (%) (Auto) 0.4 % Neutrophils # (Auto) 4.45 K/uL Lymphocytes # (Auto) 1.71 K/uL Monocytes # (Auto) 0.63 K/uL Eosinophils # (Auto) 0.02 K/uL Basophils # (Auto) 0.03 K/uL RDW Standard Deviation 43.3 fL RDW Coefficient of Variation 12.3 % Immature Granulocyte % (Auto) 0.1 % Immature Granulocyte # (Auto) 0.01 K/uL Urine Opiates Screen NEG Urine Methadone, Qualitative NEG Urine Barbiturates NEG Urine Phencyclidine (PCP) Level NEG Ur Amphetamine/Methamphetamine NEG MDMA (Ecstasy) Screen NEG Urine Benzodiazepines Screen NEG Urine Cocaine Metabolite NEG Urine Marijuana (THC) NEG Mental Examination During interview pt is: alert and oriented, cooperative Appearance: appropriately dressed Eye contact is: fair Motor behavior is: psychomotor agitation (highly restless with ceaseless movement of lower extremities) Speech: other (speech is rapid but not pressured) Affect: constricted (appears severely anxious, distraught) Mood is: depressed, anxious Thought process: other (demonstrates ritualized prayer and repeated patterning) Thought content: obsessions, compulsions Suicidal thought are: present, Plan: denied, Intent: denied Homicidal thoughts are: present, Plan: denied, Intent: denied Hallucinations: denies auditory, denies visual Cognition: memory grossly intact, language grossly intact, other (attention and concentration are severely limited by her intrusive thoughts) Intelligence estimated to be: average Insight: limited Judgement: poor Impression / Recommendations Impression Valentina is a 57-year-old never female with a long history of OCD who has been able to get by without formalized treatment but is now required 2 psychiatric hospitalizations in 2018. Today she presents as highly incapacitated secondary to the severity of her intrusive thoughts and associated compulsive ritualized behaviors. She is demonstrating diminished self-care at home, expressing increasing hopelessness and suicidal ideation without a specific plan, and psychiatric hospitalization is presently warranted secondary to the severity of her symptoms and failure of outpatient tx. Inventory Assets Strengths: Help seeking, now willing to accept treatment, history of high functional baseline Needs: Acute medical intervention for severity of anxious symptomatology Risk Factors Assessment : Yes /single/: Yes Access to guns: No Health problems: No Mental Health Diagnoses: Yes Substance use disorders: No Previous attempt: No Family history of suicide: No Previous psychiatric stay: Yes Hopelessness: Yes Smoker: No Protective Factors Assessment Yarsani beliefs: Yes : No Responsible for young children: No Employed: No Supportive family: Yes Recommendations (1) OCD (obsessive compulsive disorder) 02/01/18 - Patient's intrusive thoughts or choices behaviors are severe and incapacitating she is admitted on a voluntary status to the behavioral health unit and will be maintained on every 15 minute safety checks - She will be encouraged to participate in unit programming as appropriate - She will be trialed on Risperdal 0.25 mg by mouth every 4 hours when necessary for severe OCD symptoms. Risks and benefits as well as alternatives were reviewed which included discussion of potential metabolic side effects and tardive dyskinesia. Patient declined medication information handout - fasting labs and repeat TSH/FT4 in AM - Increase Zoloft to 75 mg daily tomorrow with plan to continue titration as indicated and tolerated - Will also make an Ativan 0.5 mg every 6 hours when necessary available temporarily for anxiety - Coordinate care with outpatient providers. 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
[2018-02-01] MEDS ORDERED: LORAZEPAM 0.5 MG TAB PO PRN (17:30)
[2018-02-01] MEDS: RISPERIDONE 0.5 MG TAB PO PRN ×2 (17:46→21:24)
[2018-02-01] MEDS: RANITIDINE HCL 150 MG TAB PO SCH (21:24)
[2018-02-01] MEDS ORDERED: NURSING VERBAL MED ORDER ONE (21:45)
[2018-02-01] MEDS: BIMATOPROST 0.01% OP SOLN 2.5 ML BTL OP SCH (22:50)
[2018-02-02 07:06] VITALS: BP_SYST 101; BP_SYST 96; BP_DIAS 60; BP_DIAS 66; PULSE 68; PULSE 71; TEMP 36.8
[2018-02-02] MEDS: CHOLECALCIFEROL 1000 INTER.UNIT TAB PO SCH (08:49)
[2018-02-02] MEDS: MULTIVITAMIN TAB PO SCH (08:49)
[2018-02-02] MEDS: SERTRALINE HCL 50 MG TAB PO SCH (08:50)
[2018-02-02] MEDS: RANITIDINE HCL 150 MG TAB PO SCH ×2 (08:50→21:12)
[2018-02-02] MEDS: RISPERIDONE 0.5 MG TAB PO PRN (11:29)
--- NOTE | 2018-02-02 11:35 | Psychiatric Progress Notes ---
Progress Note Date of Service Feb 02, 2018. Chief Complaint "I definitely feel better. Now I realize that they didn't seem so much trouble that I couldn't handle them". Subjective Patient was seen & assessed interval progress reviewed with Treatment Team. Patient was admitted yesterday and started on low-dose Risperdal and had received 2 doses at time of assessment today. Staff report that she seemed much more calm and was able to eat her dinner last evening. On interview this morning the patient describes a dramatic reduction in the intensity of her intrusive thoughts and associated ritualized "neutralizing" compulsions. She seems to be reverting to a position of minimizing the symptoms and we spent some time talking about the biological underpinnings of OCD and the need for continued medication management, particular considering the downward trajectory that she has had since last hospitalization. She expressed concern about need for Risperdal long-term but agrees that she seems to be tolerating it well so far. She denies dystonia but describes some "twitching" in her left shoulder briefly last evening. She also describes feeling a little drowsy after taking it. She received escalated dose of Zoloft this morning. She was better able to resist impulses to rewash her hands this morning. Review of Systems Reports mild fatigue, denies dizziness, denies dystonia, denies suicidal ideation, denies hallucinations Sleep Information Total Hours of Sleep: 8.00 Meal Information Percent of Breakfast Consumed: 100 Percent of Dinner Consumed: 100 Mental Status Exam During interview pt is: alert and oriented, cooperative Appearance: appropriately dressed Eye contact is: good Motor behavior is: no abnormal motor movements Speech: normal in rate, rhythm & volume Affect: mood congruent, blunted (but with perceived improvement) Mood is: depressed, anxious Thought process: other (no audible prayers and thought process more consistently goal-directed already) Thought content: obsessions, compulsions Suicidal thought are: denied, Plan: denied, Intent: denied Homicidal thoughts are: present (ego-dystonic intrusive thoughts reduced but unresolved), Plan: denied, Intent: denied Hallucinations: denies auditory, denies visual Cognition: memory grossly intact, language grossly intact Intelligence estimated to be: average Insight: limited Judgement: poor Impression Valentina is a 57-year-old never female with a long history of OCD who has been able to get by without formalized treatment but has now required 2 psychiatric hospitalizations in 2018. Initiation of low-dose Risperdal appears to be demonstrating a quick therapeutic benefit. Plan (1) OCD (obsessive compulsive disorder) 02/01/18 - Patient's intrusive thoughts or choices behaviors are severe and incapacitating she is admitted on a voluntary status to the behavioral health unit and will be maintained on every 15 minute safety checks - She will be encouraged to participate in unit programming as appropriate - She will be trialed on Risperdal 0.25 mg by mouth every 4 hours when necessary for severe OCD symptoms. Risks and benefits as well as alternatives were reviewed which included discussion of potential metabolic side effects and tardive dyskinesia. Patient declined medication information handout - fasting labs and repeat TSH/FT4 in AM - Increase Zoloft to 75 mg daily tomorrow with plan to continue titration as indicated and tolerated - Will also make an Ativan 0.5 mg every 6 hours when necessary available temporarily for anxiety - Coordinate care with outpatient providers. She will need a psychiatric provider post discharge 02/02 - Already demonstrating improvement on low-dose Risperdal. We'll change schedule to 0.25 mg by mouth twice a day standing. May consider consolidating to at bedtime prior to discharge - will consider further Zoloft titration pending need and tolerability - Fasting labs and thyroid studies within normal limits 02/02/2018 (2) Mood disorder 02/01 - Depressive disorder not otherwise specified - History of increased OCD symptomatology when depressed in the past - Endorsing increasing hopelessness and passive SI without plan or intent - Zoloft as above 02/02 - Mood appearing less hopeless with reduction of anxiety today Discharge / Aftercare Planning Primary Care Physician: Name: Dr. Seay Therapist: Name: Julio C Walker Date of Appointment: Feb 05, 2018 Bioanalyst: Name: none Visit Code E&M Code: 25370 Inventory Assets Strengths: Help seeking, now willing to accept treatment, history of high functional baseline Needs: Acute medical intervention for severity of anxious symptomatology Risk Factors Assessment : Yes /single/: Yes Health problems: No Mental Health Diagnoses: Yes Substance use disorders: No Previous attempt: No Family history of suicide: No Previous psychiatric stay: Yes Hopelessness: Yes Smoker: No Protective Factors Assessment Congregation beliefs: Yes : No Responsible for young children: No Employed: No Supportive family: Yes Data Vital Signs Last 24 Hrs: Date Time Temp Pulse Resp B/P (MAP) Pulse Ox O2 Delivery O2 Flow Rate FiO2 02/02/18 07:06 36.8 68 16 101/66 71 96/60 02/01/18 16:26 36.9 89 16 133/74 02/01/18 14:33 87 22 127/76 99 02/01/18 14:25 87 22 127/76 99 Room Air 02/01/18 13:15 37.0 76 20 136/80 100 Room Air Meds Administered Last 24 Hrs: Meds Administered (Past 24Hrs) Medications (Trade) Dose Ordered Sig/Yassine Route Start Time Stop Time Status Last Admin Dose Admin Hydroxyzine HCl (Vistaril Tab) 25 mg Q4H PRN PO 02/01/18 15:30 03/03/18 15:29 02/01/18 16:04 25 MG Cholecalciferol (Vitamin D Tab) 1,000 inter.unit QAM PO 02/02/18 09:00 03/04/18 08:59 02/02/18 08:49 1,000 INTER.UNIT Multivitamins (Multivitamin Tab) 1 tab QAM PO 02/02/18 09:00 03/04/18 08:59 02/02/18 08:49 1 TAB Ranitidine HCl (zANTac TAB) 150 mg BID PO 02/01/18 22:00 03/03/18 21:59 02/02/18 08:50 150 MG Risperidone (Risperdal Tab) 0.25 mg Q4H PRN PO 02/01/18 16:45 03/03/18 16:44 02/01/18 21:24 0.25 MG Sertraline HCl (Zoloft Tab) 75 mg QAM PO 02/02/18 09:00 03/04/18 08:59 02/02/18 08:50 75 MG Bimatoprost (Lumigan 0.01%) 1 drops HS OP 02/01/18 22:00 03/03/18 21:59 02/01/18 22:50 1 DROPS Lab Results Last 24 Hrs: Last 24 Hours Test 02/01/18 11:39 02/01/18 11:40 02/02/18 06:59 Sodium Level 139 mmol/L Potassium Level 3.9 mmol/L Chloride Level 104 mmol/L Carbon Dioxide Level 29 mmol/L Anion Gap 6.0 mmol/L Blood Urea Nitrogen 17 mg/dl Creatinine 0.95 mg/dl Est Creatinine Clear Calc Drug Dose 59.7 ml/min Estimated GFR () 76.0 Estimated GFR (Non- 65.6 BUN/Creatinine Ratio 18.1 Random Glucose 100 mg/dl Calcium Level 9.3 mg/dl Total Bilirubin 0.6 mg/dl Direct Bilirubin 0.1 mg/dl Aspartate Amino Transf (AST/SGOT) 16 U/L Alanine Aminotransferase (ALT/SGPT) 25 U/L Alkaline Phosphatase 76 U/L Total Protein 7.5 gm/dl Albumin 4.2 gm/dl Salicylates Level < 1.7 mg/dl Acetaminophen Level < 2 ug/ml Ethyl Alcohol mg/dL < 3.0 mg/dl White Blood Count 6.85 K/uL Red Blood Count 4.37 M/uL Hemoglobin 14.6 g/dL Hematocrit 42.2 % Mean Corpuscular Volume 96.6 fL Mean Corpuscular Hemoglobin 33.4 pg Mean Corpuscular Hemoglobin Concent 34.6 g/dl Platelet Count 239 K/uL Mean Platelet Volume 9.4 fL Neutrophils (%) (Auto) 65.0 % Lymphocytes (%) (Auto) 25.0 % Monocytes (%) (Auto) 9.2 % Eosinophils (%) (Auto) 0.3 % Basophils (%) (Auto) 0.4 % Neutrophils # (Auto) 4.45 K/uL Lymphocytes # (Auto) 1.71 K/uL Monocytes # (Auto) 0.63 K/uL Eosinophils # (Auto) 0.02 K/uL Basophils # (Auto) 0.03 K/uL RDW Standard Deviation 43.3 fL RDW Coefficient of Variation 12.3 % Immature Granulocyte % (Auto) 0.1 % Immature Granulocyte # (Auto) 0.01 K/uL Urine Opiates Screen NEG Urine Methadone, Qualitative NEG Urine Barbiturates NEG Urine Phencyclidine (PCP) Level NEG Ur Amphetamine/Methamphetamine NEG MDMA (Ecstasy) Screen NEG Urine Benzodiazepines Screen NEG Urine Cocaine Metabolite NEG Urine Marijuana (THC) NEG Fasting Glucose 77 mg/dl Triglycerides Level 99 mg/dl Cholesterol Level 131 mg/dl HDL Cholesterol 52 mg/dl LDL Cholesterol, Calculated 59 mg/dl VLDL Cholesterol, Calculated 20 mg/dl Cholesterol/HDL Ratio 2.5 Thyroid Stimulating Hormone (TSH) 3.190 uIu/ml Free Thyroxine 0.98 ng/dl
[2018-02-02] MEDS: RISPERIDONE 0.5 MG TAB PO SCH ×2 (12:15→21:12)
[2018-02-02] MEDS: hydrOXYzine HCL 25 MG TAB PO PRN (19:54)
[2018-02-02] MEDS: BIMATOPROST 0.01% OP SOLN 2.5 ML BTL OP SCH (21:11)
[2018-02-03 07:05] VITALS: BP_SYST 109; BP_DIAS 69; BP_DIAS 71; PULSE 65; PULSE 72; TEMP 36.4
[2018-02-03] MEDS: RISPERIDONE 0.5 MG TAB PO SCH ×2 (09:07→21:16)
[2018-02-03] MEDS: MULTIVITAMIN TAB PO SCH (09:07)
[2018-02-03] MEDS: CHOLECALCIFEROL 1000 INTER.UNIT TAB PO SCH (09:07)
[2018-02-03] MEDS: RANITIDINE HCL 150 MG TAB PO SCH ×2 (09:08→21:15)
[2018-02-03] MEDS: SERTRALINE HCL 50 MG TAB PO SCH (09:08)
--- NOTE | 2018-02-03 10:38 | Psychiatric Progress Notes ---
Progress Note Date of Service Feb 03, 2018. Interval History Valentina Ibrahim is a 57-year-old female admitted on Feb 01, 2018 at 14:45 on a voluntary status. She is known to us from prior psychotropic hospitalization -12/30/17. During her recent psychiatric hospitalization she refused pharmacotherapy for treatment of OCD. She re-presents with worsening symptoms through the [facility]. Chief Complaint "I've got OCD, and I can't compensate for it like I used to ". Subjective Patient was seen & assessed interval progress reviewed with Treatment Team. I saw the patient individually in order to assess her current mental status, adjust her treatment as required, and attend to any questions or concerns that she may have. The patient reiterates that she has become extremely troubled by her symptoms of obsessive-compulsive disorder. In her case, these are manifest through obsessive concerns germs, coupled with a need to compulsively wash her hands or shower. The patient tells me that when she showers it is "dangerous," because she has a difficult time ending the shower, because that requires her to touch objects, such as a towel. The patient also says that she had been having trouble eating because of the obsessive thoughts about the healthfulness or safety of her food, a circumstance that had led to weight loss. She also has intrusive alien thoughts, primarily of a violent nature without any associated plan or intent, and without any history of deliberately causing physical harm to the person or property of others. Further, the patient reports a long history of intrusive "magical" thoughts, such as, for example, believing that her obsessive thoughts for the day will be relieved if a certain car doesn't pass her while she is driving, or if she were to find a certain puzzle piece the active finding it would signal her to acted a certain way. She tells me that she been doing fairly well after her previous hospitalization on this unit in December 2017, but encountered a live fly in her soap dish and that triggered a resumption of the OCD symptoms. She had been placed on sertraline 25 mg daily by her primary care physician, and that dose was increased to 50 mg and, at present, she is taking 75 mg of sertraline daily. She is also taking risperidone 0.25 mg twice a day. She tells me that she feels that these may have had a favorable affect on her obsessive compulsive symptoms, but she still finds them to be substantially interfering with her ability to function. She notes that she is now eating "pretty well," and has been sleeping with the help of hydroxyzine, although she has continued to have initial insomnia. The patient acknowledges that she has had intermittent thoughts of suicide for many years, but emphasizes that these thoughts are intrusive, but are never accompanied with any actual suicidal plan or intent. 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.), No hearing loss, No unusual epistaxis, No nasal symptoms, No sore throat, No tinnitus, No dental problems, No trouble swallowing Respiratory: No cough, No sputum, No wheezing, No shortness of breath, No dyspnea on exertion, No dyspnea at rest, No hemoptysis, No problem reported Cardiovascular: No chest pain, No orthopnea, No PND, No edema, No claudication , No palpitations, No problem reported Abdomen: + problem reported (gastroesophageal reflux disease), No pain, No nausea, No vomiting, No diarrhea, No constipation, No GI bleeding Musculoskeletal: No joint pain, No muscle pain, No swelling, No calf pain, No problem reported Neurologic: No memory loss, No paralysis, No weakness, No numbness/tingling, No vertigo, No balance problems, No problem reported Psychiatric: + depression symptoms, + anxiety (the patient reports that she has symptoms of obsessive-compulsive disorder.) Integumentary: No rash, No itch, No new/changing skin lesions, No color change , No bleeding, No problem reported Sleep Information Total Hours of Sleep: 6.00 Meal Information Percent of Breakfast Consumed: 100 Percent of Lunch Consumed: 100 Percent of Dinner Consumed: 100 Mental Status Exam During interview pt is: alert and oriented, cooperative Appearance: appropriately dressed Eye contact is: good Motor behavior is: no abnormal motor movements Speech: other (the patient's speech is spontaneous and delivered at a normal volume. She speaks somewhat rapidly, however.) Affect: mood congruent, anxious Mood is: depressed, anxious Thought process: other (the patient's thought processes are somewhat tangential and circumferential.) Thought content: obsessions, compulsions, guilt Suicidal thought are: denied, Plan: denied, Intent: denied Homicidal thoughts are: denied, Plan: denied, Intent: denied Hallucinations: denies auditory, denies visual, other (the patient indicates that she may have had hypnopompic hallucinations in the past. For example, she says that there have been times, upon awakening, that she thought that she heard her mother call her name she also says that she may have had "visions" while in the process of awakening.) Cognition: memory grossly intact, language grossly intact Intelligence estimated to be: above average Insight: fair Judgement: good Impression Valentina is a 57-year-old never female with a long history of OCD who has been able to get by without formalized treatment but has now required 2 psychiatric hospitalizations in 2018. Initiation of low-dose Risperdal appears to be demonstrating a quick therapeutic benefit. She indicates that she is tolerating her medications well and does not note any adverse effects... Plan (1) OCD (obsessive compulsive disorder) 02/01/18 - Patient's intrusive thoughts or choices behaviors are severe and incapacitating she is admitted on a voluntary status to the behavioral health unit and will be maintained on every 15 minute safety checks - She will be encouraged to participate in unit programming as appropriate - She will be trialed on Risperdal 0.25 mg by mouth every 4 hours when necessary for severe OCD symptoms. Risks and benefits as well as alternatives were reviewed which included discussion of potential metabolic side effects and tardive dyskinesia. Patient declined medication information handout - fasting labs and repeat TSH/FT4 in AM - Increase Zoloft to 75 mg daily tomorrow with plan to continue titration as indicated and tolerated - Will also make an Ativan 0.5 mg every 6 hours when necessary available temporarily for anxiety - Coordinate care with outpatient providers. She will need a psychiatric provider post discharge 02/02 - Already demonstrating improvement on low-dose Risperdal. We'll change schedule to 0.25 mg by mouth twice a day standing. May consider consolidating to at bedtime prior to discharge - will consider further Zoloft titration pending need and tolerability - Fasting labs and thyroid studies within normal limits 02/02/201802/03 - The patient continues to show some improvement in response to treatment. She has been able to eat 100% of her meals, and reports that she has been sleeping somewhat better. Today, we will increase her dose of sertraline from sertraline 75 mg daily to sertraline 100 mg daily. We will also increase her dose of risperidone from 0.25 mg twice a day to 0.5 mg twice a day. 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 She has continued to have periodic passive thoughts of suicide, without any plan or intent. She is future oriented, describes goals for her future, and indicates that she has never intentionally engaged in self-injurious behaviors. In the past, she has had intrusive thoughts of hanging herself, taking an overdose, or starving herself to - but tells me that she has never had any intent to act on these thoughts. Discharge / Aftercare Planning Primary Care Physician: Name: Dr. Seay Therapist: Name: Julio C Walker Date of Appointment: Feb 05, 2018 Chemical Etching Processor: Name: none Visit Code E&M Code: 68998 Inventory Assets Strengths: Help seeking, now willing to accept treatment, history of high functional baseline Needs: Acute medical intervention for severity of anxious symptomatology Risk Factors Assessment : Yes /single/: Yes Health problems: No Mental Health Diagnoses: Yes Substance use disorders: No Previous attempt: No Family history of suicide: No Previous psychiatric stay: Yes Hopelessness: Yes Smoker: No Protective Factors Assessment Caodaism beliefs: Yes : No Responsible for young children: No Employed: No Supportive family: Yes Data Vital Signs Last 24 Hrs: Date Time Temp Pulse Resp B/P (MAP) Pulse Ox O2 Delivery O2 Flow Rate FiO2 02/03/18 07:05 36.4 65 16 109/71 72 109/69 Meds Administered Last 24 Hrs: Meds Administered (Past 24Hrs) Medications (Trade) Dose Ordered Sig/Yassine Route Start Time Stop Time Status Last Admin Dose Admin Al Hydroxide/Mg Hydroxide (Maalox Susp) 30 ml Q4H PRN PO 02/01/18 15:30 03/03/18 15:29 02/03/18 00:33 30 ML Hydroxyzine HCl (Vistaril Tab) 50 mg HSZ PRN PO 02/01/18 15:30 03/03/18 15:29 02/02/18 22:36 50 MG Hydroxyzine HCl (Vistaril Tab) 25 mg Q4H PRN PO 02/01/18 15:30 03/03/18 15:29 02/02/18 19:54 25 MG Cholecalciferol (Vitamin D Tab) 1,000 inter.unit QAM PO 02/02/18 09:00 03/04/18 08:59 02/03/18 09:07 1,000 INTER.UNIT Multivitamins (Multivitamin Tab) 1 tab QAM PO 02/02/18 09:00 03/04/18 08:59 02/03/18 09:07 1 TAB Ranitidine HCl (zANTac TAB) 150 mg BID PO 02/01/18 22:00 03/03/18 21:59 02/03/18 09:08 150 MG Risperidone (Risperdal Tab) 0.25 mg Q4H PRN PO 02/01/18 16:45 02/02/18 11:37 DC 02/02/18 11:29 0.25 MG Lorazepam (Ativan Tab) 0.5 mg Q6H PRN PO 02/01/18 17:30 03/03/18 17:29 02/02/18 16:09 0.5 MG Sertraline HCl (Zoloft Tab) 75 mg QAM PO 02/02/18 09:00 03/04/18 08:59 02/03/18 09:08 75 MG Bimatoprost (Lumigan 0.01%) 1 drops HS OP 02/01/18 22:00 03/03/18 21:59 02/02/18 21:11 1 DROPS Risperidone (Risperdal Tab) 0.25 mg BID PO 02/02/18 11:45 03/03/18 16:44 02/03/18 09:07 0.25 MG
--- NOTE | 2018-02-03 11:10 | Medical Student: BHU Only ---
Psychiatric Progress Note Date of Service: Feb 03, 2018. SUBJECTIVE: Valentina Ibrahim is a 57 year old female with past medical history significant for OCD and mood disorder who was admitted to the [facility] on 02/01/18 on a 201 voluntary commitment for decreasing function and homicidal ideations secondary to OCD. She was previously admitted to the [facility] from 12/25-12/30/17 for similar symptoms where she refused pharmacotherapy. The patient was seen and assessed today, and progress was reviewed with nursing. Per patient, she describes her OCD symptoms as manifesting primarily as an obsession with "cleanliness" causing her to wash her hands or shower multiple times. She also has intrusive thoughts where she thinks of killing another individual. Recently, this has manifested as a thought to kill her [id number] Ruby. When she was younger, she had thoughts of killing her mother, which she assures us she never acted on. She states "I live with the fear of doing something." Valentina lastly describes "supernatural thoughts" where she believes there is blood on her pillow but fears checking the pillow for if there is not blood, this would cause her distress. The combination of these OCD symptoms cause her much distress in general. She used to be able to function at a high level, but now is unable to compensate. She has trouble falling and staying asleep and often wakes up with intrusive thoughts. Last night, she slept 4 hours. She found that Vistaril helped but took it too late and was groggy this morning. She was taking 25 mg of Zoloft for 10 days prior to admission which was then titrated up to 75 mg after admission. She was also started on 0.25 mg risperidone BID. Nursing staff has noticed an improvement in the patient's mood and behavior since admission. Yesterday, she was able to tolerate coming to groups, although she required Ativan prior to self-awareness group due to anxiety. This morning, they noted she was anxious as well and complained of "racing thoughts." Valentina has never had a suicide attempt but does think of times to stop eating. She is quite latter day and often tells God to "let me go or let me be healed." She does not endorse auditory or visual hallucinations. She does endorse "mood swings" at times where she feels happy but then gets unhappy when she thinks of her illness and the accompanying intrusive thoughts. ROS: CONSTITUTIONAL: Denied HEENT: Eyes: Denied. Ears, Nose, Throat: Denied. SKIN: Denied. CARDIOVASCULAR: Denied. RESPIRATORY: Denied. GASTROINTESTINAL: Denied. GENITOURINARY: Denied. NEUROLOGICAL: Denied. MUSCULOSKELETAL: Denied. HEMATOLOGIC: Denied. LYMPHATICS: Denied. PSYCHIATRIC: Denied other than what is stated above. MEDICATIONS: Risperdal 0.25 mg BID Zoloft 75 mg qAM Vistaril 50 mg PRN for insomnia Vistaril 25 mg PRN for anxiety Ativan 0.5 mg q6h PRN for anxiety PHYSICAL EXAM: Medically cleared prior to admission Vitals: T 36.4, P 72, BP 109/69 MSE: Appearance is that of a casually dressed, anxious female who appears her stated age. The patient is generally cooperative with the interview. Eye contact is appropriate. Motor behavior is normal; no evidence of tardive dykinesia, akathisia, or other abnormal movements. Speech: Normal volume, fast rate, normal tone. Affect: Mood congruent. Mood: Depressed and anxious. Thought process: At times, circumstantial and patient had to be redirected. Thought content: Endorses obsessions and compulsions related to cleanliness. Denies SI. Sometimes has "intrusive thoughts" which manifests as HI towards others. Perception: Denies auditory and visual hallucinations; does endorse hypnagogic and hypnopompic illusions where she feels her mom is calling her before going to sleep or waking Cognition: Cognition appears normal. Intelligence is estimated to be above average. Insight is estimated to be appropriate. Judgment is estimated to be appropriate. LABS: Test 02/01/18 11:25 02/01/18 11:39 02/01/18 11:40 02/02/18 06:59 Urine Color YELLOW Urine Appearance CLEAR Urine pH 6.0 Urine Specific Palmer 1.021 Urine Protein NEG Urine Glucose (UA) NEG Urine Ketones TRACE Urine Occult Blood NEG Urine Nitrite NEG Urine Bilirubin NEG Urine Urobilinogen NEG Urine Leukocyte Esterase NEG Sodium Level 139 Potassium Level 3.9 Chloride Level 104 Carbon Dioxide Level 29 Anion Gap 6.0 Blood Urea Nitrogen 17 Creatinine 0.95 Est Creatinine Clear Calc Drug Dose 59.7 Estimated GFR () 76.0 Estimated GFR (Non- 65.6 BUN/Creatinine Ratio 18.1 Random Glucose 100 Calcium Level 9.3 Total Bilirubin 0.6 Direct Bilirubin 0.1 Aspartate Amino Transferase (AST) 16 Alanine Aminotransferase (ALT) 25 Alkaline Phosphatase 76 Total Protein 7.5 Albumin 4.2 Salicylates Level < 1.7 Acetaminophen Level < 2 Ethyl Alcohol mg/dL < 3.0 White Blood Count 6.85 Red Blood Count 4.37 Hemoglobin 14.6 Hematocrit 42.2 Mean Corpuscular Volume 96.6 Mean Corpuscular Hemoglobin 33.4 Mean Corpuscular Hemoglobin Concent 34.6 Platelet Count 239 Mean Platelet Volume 9.4 Neutrophils (%) (Auto) 65.0 Lymphocytes (%) (Auto) 25.0 Monocytes (%) (Auto) 9.2 Eosinophils (%) (Auto) 0.3 Basophils (%) (Auto) 0.4 Neutrophils # (Auto) 4.45 Lymphocytes # (Auto) 1.71 Monocytes # (Auto) 0.63 Eosinophils # (Auto) 0.02 Basophils # (Auto) 0.03 RDW Standard Deviation 43.3 RDW Coefficient of Variation 12.3 Immature Granulocyte % (Auto) 0.1 Immature Granulocyte # (Auto) 0.01 Urine Opiates Screen NEG Urine Methadone, Qualitative NEG Urine Barbiturates NEG Urine Phencyclidine (PCP) Level NEG Ur Amphetamine/Methamphetamine NEG MDMA (Ecstasy) Screen NEG Urine Benzodiazepines Screen NEG Urine Cocaine Metabolite NEG Urine Marijuana (THC) NEG Fasting Glucose 77 Triglycerides Level 99 Cholesterol Level 131 HDL Cholesterol 52 LDL Cholesterol, Calculated 59 VLDL Cholesterol, Calculated 20 Cholesterol/HDL Ratio 2.5 Thyroid Stimulating Hormone (TSH) 3.190 Free Thyroxine 0.98 ASSESSMENT: Valentina Ibrahim is a 57 year old female with past medical history significant for OCD and depression who was admitted to the [facility] on 02/01/18 on a 201 voluntary commitment for decreasing function and homicidal ideations secondary to OCD. She was previously admitted to the [facility] from 12/25-12/30/17 for similar symptoms where she refused pharmacotherapy. Prior to this admission, she did start on a small dose of Zoloft prescribed by her GP. During this admission, she was started on risperidone and her dose of Zoloft was increased. Nursing staff has reported better behavior and mood since admission, which pharmacotherapy is likely contributing to. Patient continues to complain of anxiety but appears to be improving overall. She is tolerating medications well. Fasting labs and TSH were checked on 02/02 which were normal. PLAN: 1. OCD a. Encourage participation in group; q15 safety checks b. Increase risperidone from 0.25 mg BID to 0.5 mg BID; patient is tolerating medication well- no side effects or abnormal motor movements c. Increase Zoloft from 75 mg to 100 mg daily; patient is tolerating medication well with no side effects d. TSH and fasting labs were normal when checked on 02/02. e. Continue Vistaril 50 mg PRN for insomnia. 2. Mood Disorder a. Zoloft will be increased today. b. Continue Vistaril 25 mg PRN for anxiety. c. Continue Ativan 0.5 mg PRN q6h for anxiety.
[2018-02-03] MEDS: hydrOXYzine HCL 25 MG TAB PO SCH (21:15)
[2018-02-03] MEDS: BIMATOPROST 0.01% OP SOLN 2.5 ML BTL OP SCH (21:15)
[2018-02-04 07:03] VITALS: BP_SYST 100; BP_SYST 102; BP_DIAS 66; BP_DIAS 68; PULSE 70; PULSE 80; TEMP 36.5
[2018-02-04] MEDS: MULTIVITAMIN TAB PO SCH (08:13)
[2018-02-04] MEDS: RISPERIDONE 0.5 MG TAB PO SCH ×2 (08:13→21:08)
[2018-02-04] MEDS: CHOLECALCIFEROL 1000 INTER.UNIT TAB PO SCH (08:13)
[2018-02-04] MEDS: SERTRALINE HCL 100 MG TAB PO SCH (08:14)
[2018-02-04] MEDS: RANITIDINE HCL 150 MG TAB PO SCH ×2 (08:14→21:09)
--- NOTE | 2018-02-04 09:09 | Psychiatric Progress Notes ---
Progress Note Date of Service Feb 04, 2018. Interval History Valentina Ibrahim is a 57-year-old female admitted on Feb 01, 2018 at 14:45 on a voluntary status. She is known to us from prior psychotropic hospitalization -12/30/17. During her recent psychiatric hospitalization she refused pharmacotherapy for treatment of OCD. She re-presents with worsening symptoms through the [facility] ER. Chief Complaint "Obsessive Compulsive Disorder". Subjective Patient was seen & assessed interval progress reviewed with Treatment Team. The patient individually in order to assess her current mental status, assess her response to treatment, review her treatment plan and make any necessary adjustments, provide support and encouragement, and respond to any questions or concerns that may arise. Today, the patient tells me that she has noticed some improvement in response to her medications. Although she continues to have obsessive thoughts, coupled with compulsive acts, she finds that these have been less intrusive last up to interfere with her functioning. She also says that she is feeling less anxious and less depressed. The patient tells me that she is tolerating her medications well and is not aware of any side effects. She also reports that she slept "better" last night in response to hydroxyzine 50 mg, given as a standing dose rather than his as needed. We discussed her ongoing obsessive-compulsive thoughts and at times in some detail today. The patient notes that she finds that she has to sit silent. Sometimes she has intrusive obsessive thoughts, and the setting of silent inferior and inferior concentrate, focus, complete tasks., She reports that she was able to take a shower without lingering. She previously had felt compelled to wash her hands were sent. In time, but for now she is able to wash them for any length of time. 1 of the obsessive thoughts that she continues to have is that she may have accidentally stuck her hand into toilet, and even though she knows that she would never done this, she feels compelled to rewash" her hands, "just in case." She has managed this by being more mindful that she wash her hands. Patient has been able to adequately and finds that she does not obsess that she once had about 2. She denies any suicidal ideation, and reports that her mood has been "better." The patient enjoyed what she referred to as a "good" visit with [id number] and is looking forward to a family meeting with them later today. We discussed various treatment options, and I told patient that I would recommend increasing her dose of sertraline to 125 mg today, while continuing risperidone 0.5 mg twice a day with hydroxyzine 50 mg at bedtime. Over the patient reports improving, she is concerned that she would not be able to tolerate the stress of returning home at this time. She states, "I have made progress. But it is a bit tenuous worry that my OCD will get worse once at home." She notes that her brother and [id number] had noticed improvement, she felt encouraged by this. Review of Systems Constitutional: No fever, No chills, No sweats, No weight loss, No weakness, No fatigue, No problem reported ENT: No hearing loss, No unusual epistaxis, No nasal symptoms, No sore throat, No tinnitus, No dental problems, No trouble swallowing, No problem reported Respiratory: No cough, No sputum, No wheezing, No shortness of breath, No dyspnea on exertion, No dyspnea at rest, No hemoptysis, No problem reported Cardiovascular: No chest pain, No orthopnea, No PND, No edema, No claudication , No palpitations, No problem reported Abdomen: No pain, No nausea, No vomiting, No diarrhea, No constipation, No GI bleeding, No problem reported Musculoskeletal: No joint pain, No muscle pain, No swelling, No calf pain, No problem reported Neurologic: No memory loss, No paralysis, No weakness, No numbness/tingling, No vertigo, No balance problems, No problem reported Psychiatric: + problem reported (Patient continues to have symptoms sleeping. She reports that her mood has been "better," and that she has been significantly less anxious.) Sleep Information Total Hours of Sleep: 7.25 Meal Information Percent of Breakfast Consumed: 100 Percent of Lunch Consumed: 100 Percent of Dinner Consumed: 100 Mental Status Exam During interview pt is: alert and oriented, cooperative Appearance: appropriately dressed Eye contact is: good Motor behavior is: no abnormal motor movements Speech: normal in rate, rhythm & volume Affect: mood congruent, anxious Mood is: anxious (Patient appears less anxious than she had during her contact yesterday.), other (Mildly depressed.) Thought process: goal directed, other (Patient tends to be somewhat over inclusive.) Thought content: obsessions, compulsions, guilt Suicidal thought are: denied, Plan: denied, Intent: denied Homicidal thoughts are: denied, Plan: denied, Intent: denied Hallucinations: denies auditory, denies visual, other (the patient indicates that she may have had hypnopompic hallucinations in the past. For example, she says that there have been times, upon awakening, that she thought that she heard her mother call her name she also says that she may have had "visions" while in the process of awakening.) Cognition: memory grossly intact, language grossly intact Intelligence estimated to be: above average Insight: fair Judgement: good Impression Valentina is a 57-year-old never female with a long history of OCD who has been able to get by without formalized treatment but has now required 2 psychiatric hospitalizations in 2018. Initiation of low-dose Risperdal appears to be demonstrating a quick therapeutic benefit. She indicates that she is tolerating her medications well and does not note any adverse effects... Plan (1) OCD (obsessive compulsive disorder) 02/01/18 - Patient's intrusive thoughts or choices behaviors are severe and incapacitating she is admitted on a voluntary status to the behavioral health unit and will be maintained on every 15 minute safety checks - She will be encouraged to participate in unit programming as appropriate - She will be trialed on Risperdal 0.25 mg by mouth every 4 hours when necessary for severe OCD symptoms. Risks and benefits as well as alternatives were reviewed which included discussion of potential metabolic side effects and tardive dyskinesia. Patient declined medication information handout - fasting labs and repeat TSH/FT4 in AM - Increase Zoloft to 75 mg daily tomorrow with plan to continue titration as indicated and tolerated - Will also make an Ativan 0.5 mg every 6 hours when necessary available temporarily for anxiety - Coordinate care with outpatient providers. She will need a psychiatric provider post discharge 02/02 - Already demonstrating improvement on low-dose Risperdal. We'll change schedule to 0.25 mg by mouth twice a day standing. May consider consolidating to at bedtime prior to discharge - will consider further Zoloft titration pending need and tolerability - Fasting labs and thyroid studies within normal limits 02/02/201802/03 - The patient continues to show some improvement in response to treatment. She has been able to eat 100% of her meals, and reports that she has been sleeping somewhat better. Today, we will increase her dose of sertraline from sertraline 75 mg daily to sertraline 100 mg daily. We will also increase her dose of risperidone from 0.25 mg twice a day to 0.5 mg twice a day. 02/04 -today, the patient tells me that she feels that she is improving, she is feeling less depressed and less anxious. She continues to be able to eat her meals and was able to sleep for approximately 7-1/2 hours last night with difficulty awakening this morning. The patient also indicates that she is tolerating her medications well and has noted no side effects. She also tells me that she realizes that they are helping, but she continues to have significant symptoms of OCD that are interfering with her activities of daily living. For example, she finds that she is compelled to say "silent prayer" each time she has an intrusive obsessive thought, and this happens with a frequency that it often breaks her concentration and, for example, interferes with her ability to attend to what people are saying to her. -The plan is to continue risperidone 0.5 mg twice a day. We will increase her dose of sertraline from 100 mg daily 225 mg daily, beginning in the morning. 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 She has continued to have periodic passive thoughts of suicide, without any plan or intent. She is future oriented, describes goals for her future, and indicates that she has never intentionally engaged in self-injurious behaviors. In the past, she has had intrusive thoughts of hanging herself, taking an overdose, or starving herself to - but tells me that she has never had any intent to act on these thoughts. 02/04 - The patient reports that her mood has gotten "better," and she says that she is quite aware that she is significantly less anxious than she had been in the recent past. She notes that she has had no further thoughts of suicide, and reiterates that she would never act on any thoughts, even related to occur. The patient remains future oriented and setting goals for herself. Patient's thought content is marked by frequent self depreciating thoughts. For example, the patient regularly makes statements such as "I guess that is a pretty dominant thing to do," "I guess I am just lazy." During her visit today , I was able to gently confront the patient about this. 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 Discharge / Aftercare Planning Primary Care Physician: Name: Dr. Seay Psychiatrist: Name: Dr. Valdovinos [facility] [place] Date of Appointment: Mar 03, 2018 Time of Appointment: 8:45 Therapist: Name: Julio C [facility] Date of Appointment: Feb 05, 2018 Control Panel Builder: Name: none Visit Code E&M Code: 53229 Inventory Assets Strengths: Help seeking, now willing to accept treatment, history of high functional baseline Needs: Acute medical intervention for severity of anxious symptomatology Risk Factors Assessment : Yes /single/: Yes Health problems: No Mental Health Diagnoses: Yes Substance use disorders: No Previous attempt: No Family history of suicide: No Previous psychiatric stay: Yes Hopelessness: Yes Smoker: No Protective Factors Assessment Bahai beliefs: Yes : No Responsible for young children: No Employed: No Supportive family: Yes Data Vital Signs Last 24 Hrs: Date Time Temp Pulse Resp B/P (MAP) Pulse Ox O2 Delivery O2 Flow Rate FiO2 02/04/18 07:03 36.5 70 16 100/66 80 102/68 Meds Administered Last 24 Hrs: Meds Administered (Past 24Hrs) Medications (Trade) Dose Ordered Sig/Yassine Route Start Time Stop Time Status Last Admin Dose Admin Cholecalciferol (Vitamin D Tab) 1,000 inter.unit QAM PO 02/02/18 09:00 03/04/18 08:59 02/04/18 08:13 1,000 INTER.UNIT Multivitamins (Multivitamin Tab) 1 tab QAM PO 02/02/18 09:00 03/04/18 08:59 02/04/18 08:13 1 TAB Sertraline HCl (Zoloft Tab) 75 mg QAM PO 02/02/18 09:00 02/03/18 11:05 DC 02/03/18 09:08 75 MG Risperidone (Risperdal Tab) 0.25 mg BID PO 02/02/18 11:45 02/03/18 11:05 DC 02/03/18 09:07 0.25 MG Sertraline HCl (Zoloft Tab) 100 mg QAM PO 02/04/18 09:00 03/06/18 08:59 02/04/18 08:14 100 MG Risperidone (Risperdal Tab) 0.5 mg BID PO 02/03/18 22:00 03/05/18 21:59 02/04/18 08:13 0.5 MG Hydroxyzine HCl (Vistaril Tab) 50 mg HS PO 02/03/18 22:00 03/05/18 21:59 02/03/18 21:15 50 MG
--- NOTE | 2018-02-04 11:21 | Medical Student: BHU Only ---
Psychiatric Progress Note Date of Service: Feb 04, 2018. SUBJECTIVE: Valentina Ibrahim is a 57 year old female with past medical history significant for OCD and mood disorder who was admitted to the [facility] on 02/01/18 on a 201 voluntary commitment for decreasing function and homicidal ideations secondary to OCD. She was previously admitted to the [facility] from 12/25-12/30/17 for similar symptoms where she refused pharmacotherapy. The patient was seen and assessed today, and progress was reviewed with nursing. Yesterday, her Zoloft was increased to 100 mg daily and risperidone to 0.5 mg BID. She has noticed an improvement with these medications and has not had any side effects. She continues to have obsessions and compulsions but feels hopefully in overcoming them. She is able to rid her mind of these thoughts quicker. Yesterday, she explained how handwashing and showering were part of her compulsions. She washed her hands repetitively and would have trouble getting out of the shower or would shower repeatedly. She continues to wash her hands often, but has been able to shower once per day since yesterday for an appropriate amount of time and is able to get out without difficulty. She recognizes the shower sheth may be dirty but is able to touch them while showering. In addition, Valentina slept through the night. She felt that scheduled 50 mg of Vistaril helped her at night. She rates her mood as a 9/10 this morning. She does not have any thoughts of hurting herself and has not prayed for God to let her go. She had breakfast in her room yesterday but did eat in the day room for lunch and dinner. This morning, she had breakfast in the day room. She enjoys the food and eats all her meals. She has been attending groups and finds them helpful. She had a family meeting scheduled today at 10 AM with her brother and sister-in -law. She states it went well and felt good that both were able to recognize her progress. Her brother and [id number] felt she was more "clear minded" and accepting of treatment. ROS: CONSTITUTIONAL: Denied HEENT: Eyes: Denied. Ears, Nose, Throat: Denied. SKIN: Denied. CARDIOVASCULAR: Denied. RESPIRATORY: Denied. GASTROINTESTINAL: Denied. GENITOURINARY: Denied. NEUROLOGICAL: Denied. MUSCULOSKELETAL: Denied. HEMATOLOGIC: Denied. LYMPHATICS: Denied. PSYCHIATRIC: Denied other than what is stated above. MEDICATIONS: Risperdal 0.5 mg BID Zoloft 100 mg qAM Vistaril 50 mg qPM for insomnia Vistaril 25 mg PRN for anxiety Ativan 0.5 mg q6h PRN for anxiety PHYSICAL EXAM: Medically cleared prior to admission Vitals: T 36.5, P 80, BP 102/68 MSE: Appearance is that of a casually dressed, anxious female who appears her stated age. The patient is generally cooperative with the interview. Eye contact is appropriate. Motor behavior is normal; no evidence of tardive dykinesia, akathisia, or other abnormal movements. Speech: Normal volume, fast rate, normal tone. Affect: Mood congruent. Mood: Depressed and anxious. Thought process: At times, circumstantial and patient had to be redirected. Thought content: Endorses obsessions and compulsions related to cleanliness. Denies SI. Sometimes has "intrusive thoughts" which manifests as HI towards others. Perception: Denies auditory and visual hallucinations; does endorse hypnagogic and hypnopompic illusions where she feels her mom is calling her before going to sleep or waking Cognition: Cognition appears normal. Intelligence is estimated to be above average. Insight is estimated to be appropriate. Judgment is estimated to be appropriate. LABS: Test 02/01/18 11:25 02/01/18 11:39 02/01/18 11:40 02/02/18 06:59 Urine Color YELLOW Urine Appearance CLEAR Urine pH 6.0 Urine Specific [place] 1.021 Urine Protein NEG Urine Glucose (UA) NEG Urine Ketones TRACE Urine Occult Blood NEG Urine Nitrite NEG Urine Bilirubin NEG Urine Urobilinogen NEG Urine Leukocyte Esterase NEG Sodium Level 139 Potassium Level 3.9 Chloride Level 104 Carbon Dioxide Level 29 Anion Gap 6.0 Blood Urea Nitrogen 17 Creatinine 0.95 Est Creatinine Clear Calc Drug Dose 59.7 Estimated GFR () 76.0 Estimated GFR (Non- 65.6 BUN/Creatinine Ratio 18.1 Random Glucose 100 Calcium Level 9.3 Total Bilirubin 0.6 Direct Bilirubin 0.1 Aspartate Amino Transferase (AST) 16 Alanine Aminotransferase (ALT) 25 Alkaline Phosphatase 76 Total Protein 7.5 Albumin 4.2 Salicylates Level < 1.7 Acetaminophen Level < 2 Ethyl Alcohol mg/dL < 3.0 White Blood Count 6.85 Red Blood Count 4.37 Hemoglobin 14.6 Hematocrit 42.2 Mean Corpuscular Volume 96.6 Mean Corpuscular Hemoglobin 33.4 Mean Corpuscular Hemoglobin Concent 34.6 Platelet Count 239 Mean Platelet Volume 9.4 Neutrophils (%) (Auto) 65.0 Lymphocytes (%) (Auto) 25.0 Monocytes (%) (Auto) 9.2 Eosinophils (%) (Auto) 0.3 Basophils (%) (Auto) 0.4 Neutrophils # (Auto) 4.45 Lymphocytes # (Auto) 1.71 Monocytes # (Auto) 0.63 Eosinophils # (Auto) 0.02 Basophils # (Auto) 0.03 RDW Standard Deviation 43.3 RDW Coefficient of Variation 12.3 Immature Granulocyte % (Auto) 0.1 Immature Granulocyte # (Auto) 0.01 Urine Opiates Screen NEG Urine Methadone, Qualitative NEG Urine Barbiturates NEG Urine Phencyclidine (PCP) Level NEG Ur Amphetamine/Methamphetamine NEG MDMA (Ecstasy) Screen NEG Urine Benzodiazepines Screen NEG Urine Cocaine Metabolite NEG Urine Marijuana (THC) NEG Fasting Glucose 77 Triglycerides Level 99 Cholesterol Level 131 HDL Cholesterol 52 LDL Cholesterol, Calculated 59 VLDL Cholesterol, Calculated 20 Cholesterol/HDL Ratio 2.5 Thyroid Stimulating Hormone (TSH) 3.190 Free Thyroxine 0.98 ASSESSMENT: Valentina Ibrahim is a 57 year old female with past medical history significant for OCD and depression who was admitted to the [facility] on 02/01/18 on a 201 voluntary commitment for decreasing function and homicidal ideations secondary to OCD. She was previously admitted to the [facility] from 12/25-12/30/17 for similar symptoms where she refused pharmacotherapy. Prior to this admission, she did start on a small dose of Zoloft prescribed by her GP. During this admission, she was started on risperidone and her dose of Zoloft was increased. Nursing staff has reported better behavior and mood since admission, which pharmacotherapy is likely contributing to. Patient continues to complain of anxiety but appears to be improving overall. She is tolerating medications well. Fasting labs and TSH were checked on 02/02 which were normal. PLAN: 1. OCD a. Encourage participation in group; q15 safety checks b. Risperidone increased from 0.25 mg BID to 0.5 mg BID on 02/03; Continue at this dose. Patient is tolerating medication well- no side effects or abnormal motor movements; she and staff are noticing improvements in behavior. c. Zoloft increased from 75 mg to 100 mg on 02/03; patient is tolerating medication well with no side effects. Will increase further to 125 mg daily as patient is showing improvement of mood on medication. d. TSH and fasting labs were normal when checked on 02/02. e. Continue Vistaril 50 mg qPM for insomnia. Patient was able to sleep through the night with scheduled dose. 2. Mood Disorder a. Zoloft will be increased today. Patient still feels anxious but has noticed improvement. b. Continue Vistaril 25 mg PRN for anxiety. c. Continue Ativan 0.5 mg PRN q6h for anxiety.
[2018-02-04] MEDS: hydrOXYzine HCL 25 MG TAB PO SCH (21:09)
[2018-02-04] MEDS: BIMATOPROST 0.01% OP SOLN 2.5 ML BTL OP SCH (21:10)
[2018-02-05 06:56] VITALS: BP_SYST 114; BP_SYST 117; BP_DIAS 75; BP_DIAS 76; PULSE 76; PULSE 81; TEMP 36.5
[2018-02-05] MEDS: MULTIVITAMIN TAB PO SCH (08:51)
[2018-02-05] MEDS: RANITIDINE HCL 150 MG TAB PO SCH ×2 (08:51→21:08)
[2018-02-05] MEDS: RISPERIDONE 0.5 MG TAB PO SCH (08:51)
[2018-02-05] MEDS: CHOLECALCIFEROL 1000 INTER.UNIT TAB PO SCH (08:52)
[2018-02-05] MEDS: SERTRALINE HCL 100 MG TAB PO SCH (08:52)
[2018-02-05] MEDS: SERTRALINE HCL 50 MG TAB PO SCH (08:55)
--- NOTE | 2018-02-05 10:01 | Psychiatric Progress Notes ---
Progress Note Date of Service Feb 05, 2018. Interval History Valentina Ibrahim is a 57-year-old female admitted on Feb 01, 2018 at 14:45 on a voluntary status. She is known to us from prior psychotropic hospitalization -12/30/17. During her recent psychiatric hospitalization she refused pharmacotherapy for treatment of OCD. She re-presents with worsening symptoms through the [facility]. Chief Complaint "My OCD was kind of bad last night, but it's better this morning". Subjective Patient was seen & assessed interval progress reviewed with Treatment Team. I saw the patient individually in order to assess her current mental status, assess her response to treatment, make any necessary adjustments in her treatment regimen, provide support and encouragement, off her medication teaching, and address questions or issues that may arise. The patient tells me that she was experiencing a fair amount of obsessive thoughts last night, primarily having to do with objects around her being contaminated. For example , she became fearful that the cup that she was using for drinking had become contaminated, although she could not think of how that could have happened, and she could not bring herself to drink from. She told the nurse about this, requested a new cup, and the nurse was able to redirect her by explaining that she was having symptoms of OCD. She also engaged in fair amount of handwashing behavior last evening. The patient tells me that, this morning, her obsessive thoughts have lessened. She was able to drink out of her cup again, and she finds that she has been having to say "silent prayer is" less frequently. For example, she confides that she has not had to say any during encounter this morning. We reviewed the material risks and anticipated benefits of her medications. She is concerned about the possibility of dyskinesias secondary to risperidone, and I reassured her by telling her to be monitoring for this, as well as elevated lipids, elevated glucose levels, and weight gain. Also provided the patient with additional information about the nature of OCD, as it is currently understood, and reassured her that this was not her fault, or a function of not "trying hard enough," or personal limitations such as sloth, as she is prone to believe. We also discussed treatment options and prognosis. Review of Systems Constitutional: No fever, No chills, No sweats, No weight loss, No weakness, No fatigue, No problem reported ENT: No hearing loss, No unusual epistaxis, No nasal symptoms, No sore throat, No tinnitus, No dental problems, No trouble swallowing, No problem reported Respiratory: No cough, No sputum, No wheezing, No shortness of breath, No dyspnea on exertion, No dyspnea at rest, No hemoptysis, No problem reported Cardiovascular: No chest pain, No orthopnea, No PND, No edema, No claudication , No palpitations, No problem reported Abdomen: No pain, No nausea, No vomiting, No diarrhea, No constipation, No GI bleeding, No problem reported Musculoskeletal: No joint pain, No muscle pain, No swelling, No calf pain, No problem reported Neurologic: No memory loss, No paralysis, No weakness, No numbness/tingling, No vertigo, No balance problems, No problem reported Psychiatric: + depression symptoms (The patient reports that her mood has been "pretty" good. She has been observed socializing with her peers on the unit.), + anxiety (She endorses ongoing symptoms of anxiety, but feels that, overall, these have lessened.) Sleep Information Total Hours of Sleep: 7.50 Meal Information Percent of Breakfast Consumed: 100 Percent of Lunch Consumed: 100 Percent of Dinner Consumed: 100 Mental Status Exam During interview pt is: alert and oriented, cooperative Appearance: appropriately dressed Eye contact is: good Motor behavior is: no abnormal motor movements Speech: normal in rate, rhythm & volume (Her rate of speech tends to accelerate when she becomes anxious.) Affect: mood congruent, anxious Mood is: anxious Thought process: goal directed Thought content: obsessions, compulsions, guilt Suicidal thought are: denied Homicidal thoughts are: denied Hallucinations: denies auditory, denies visual Cognition: memory grossly intact, language grossly intact Intelligence estimated to be: above average Insight: fair Judgement: good Impression Although the patient reports that her mood is improving and she has generally been less anxious, she continues to have symptoms of OCD, such that they significantly interfere with her ability to function on a day-to-day basis. For example, the patient struggles at times to overcome her OCD in order to engage in simple behavior such as water, or sitting in the chair when she is unable to cover with a towel. At the same time, she has been tolerating the prescribed medications well, and she does state that she feels that they have been helpful to her. She continues to fear that she will experience a significant exacerbation in her OCD symptoms if she urged to return home at this point, and I would agree that her improvement is tenuous at this point. We discussed treating intrusive obsessive thoughts like "bees" that are allowed to fly in to her consciousness, however briefly, and then flyaway without her focusing on them were trying to "trap" them. She is quite rastafari, and possible knows the fact that she had a fairly long visit yesterday afternoon by the warehouse associate of her spiritism. 1 of her obsessive thoughts today involves her having discarded a broken plastic schedule that was given to her friend number of years ago. The plastic treated brew, and so she discarded. Today she has been obsessed with the IV and that perhaps the treatment was not lasting , but I reviewed, and that it was valuable4 that it had some sort of curse associated with it. The patient says that, intellectually, she knows that objects in" curst," but that she has difficulty extruding the thought reminded. Within this context, she adds, "I know that I am protected from things like curses by the blood of Maksim, anyway." I had her practice allowing us thought "float" in her mind and then allow it to float away" without trying to examine or without becoming distress she did reinjure her mind. Plan (1) OCD (obsessive compulsive disorder) 02/01/18 - Patient's intrusive thoughts or choices behaviors are severe and incapacitating she is admitted on a voluntary status to the behavioral health unit and will be maintained on every 15 minute safety checks - She will be encouraged to participate in unit programming as appropriate - She will be trialed on Risperdal 0.25 mg by mouth every 4 hours when necessary for severe OCD symptoms. Risks and benefits as well as alternatives were reviewed which included discussion of potential metabolic side effects and tardive dyskinesia. Patient declined medication information handout - fasting labs and repeat TSH/FT4 in AM - Increase Zoloft to 75 mg daily tomorrow with plan to continue titration as indicated and tolerated - Will also make an Ativan 0.5 mg every 6 hours when necessary available temporarily for anxiety - Coordinate care with outpatient providers. She will need a psychiatric provider post discharge 02/02 - Already demonstrating improvement on low-dose Risperdal. We'll change schedule to 0.25 mg by mouth twice a day standing. May consider consolidating to at bedtime prior to discharge - will consider further Zoloft titration pending need and tolerability - Fasting labs and thyroid studies within normal limits 02/02/201802/03 - The patient continues to show some improvement in response to treatment. She has been able to eat 100% of her meals, and reports that she has been sleeping somewhat better. Today, we will increase her dose of sertraline from sertraline 75 mg daily to sertraline 100 mg daily. We will also increase her dose of risperidone from 0.25 mg twice a day to 0.5 mg twice a day. 02/04 -today, the patient tells me that she feels that she is improving, she is feeling less depressed and less anxious. She continues to be able to eat her meals and was able to sleep for approximately 7-1/2 hours last night with difficulty awakening this morning. The patient also indicates that she is tolerating her medications well and has noted no side effects. She also tells me that she realizes that they are helping, but she continues to have significant symptoms of OCD that are interfering with her activities of daily living. For example, she finds that she is compelled to say "silent prayer" each time she has an intrusive obsessive thought, and this happens with a frequency that it often breaks her concentration and, for example, interferes with her ability to attend to what people are saying to her. -The plan is to continue risperidone 0.5 mg twice a day. We will increase her dose of sertraline from 100 mg daily 225 mg daily, beginning in the morning. The patient has found a scheduled dose of hydroxyzine 50 mg at bedtime to be helpful because she does not ask for it, and if she takes it she sleeps through the night 02/05 - As noted, the patient continues to tell me that she has been less anxious and her mood has been "pretty good." However, last night, following a visit by the associate news camera person of her spiritism, she experienced an "uptake" in her OCD symptoms. I am continuing to teach her strategies for coping with OCD symptoms while, same time, adjusting her psychiatric medications in order to assist her by bringing these symptoms under better control. Today, she began sertraline 125 mg daily, and some of this for, continues to tolerate sertraline well without any noted side effects. I will increase her dose of risperidone to 1 mg twice a day, beginning with her evening dose today. I discussed this with the patient and she is in agreement. We also reviewed risks and anticipated benefits of risperidone. Also, I am encouraging her to be more socially active and to develop improved leisure skills. The patient tells me that she has noticed that that this year she has, and the more she has to occupy her mind, the less obsessive she tends to be, and I am hoping to work with that observation. 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 She has continued to have periodic passive thoughts of suicide, without any plan or intent. She is future oriented, describes goals for her future, and indicates that she has never intentionally engaged in self-injurious behaviors. In the past, she has had intrusive thoughts of hanging herself, taking an overdose, or starving herself to - but tells me that she has never had any intent to act on these thoughts. 02/04 - The patient reports that her mood has gotten "better," and she says that she is quite aware that she is significantly less anxious than she had been in the recent past. She notes that she has had no further thoughts of suicide, and reiterates that she would never act on any thoughts, even related to occur. The patient remains future oriented and setting goals for herself. Patient's thought content is marked by frequent self depreciating thoughts. For example, the patient regularly makes statements such as "I guess that is a pretty dominant thing to do," "I guess I am just lazy." During her visit today , I was able to gently confront the patient about this. 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 02/05 - Ms. Ibrahim tells me today that she does not currently feel depressed, and is pleased to note that her mood has been "pretty good." I have observed her laughing with peers, and interacting in inappropriately jocular manner with several. Today, she caught herself that she was about to make a self depreciating statements, and thereby demonstrated that she is aware of this tendency. We discussed the fact that people "here" their own self depreciating statements and they can reinforce feelings of inadequacy and low self-esteem Discharge / Aftercare Planning Primary Care Physician: Name: Dr. Seay Appointment Notes: Appointment scheduled as needed Psychiatrist: Name: [facility] Date of Appointment: Mar 03, 2018 Time of Appointment: 8:45 Appointment Notes: [address] [facility] [address] [address] Therapist: Name: Julio C Walker [facility] Date of Appointment: Feb 05, 2018 Appointment Notes: [address] [place] [address] Data Security Consultant: Name: none Other: Name of Appointment #1: Dr. Bonifacio [facility] Date of Appointment #1: Mar 10, 2018 Time of Appointment #1: 1:00 p.m. Appointment #1 Notes: Follow up to initial intake with Dr. Valdovinos Visit Code E&M Code: 00423 Inventory Assets Strengths: Help seeking, now willing to accept treatment, history of high functional baseline Needs: Acute medical intervention for severity of anxious symptomatology Risk Factors Assessment : Yes /single/: Yes Health problems: No Mental Health Diagnoses: Yes Substance use disorders: No Previous attempt: No Family history of suicide: No Previous psychiatric stay: Yes Hopelessness: Yes Smoker: No Protective Factors Assessment Sabianist beliefs: Yes : No Responsible for young children: No Employed: No Supportive family: Yes Data Vital Signs Last 24 Hrs: Date Time Temp Pulse Resp B/P (MAP) Pulse Ox O2 Delivery O2 Flow Rate FiO2 02/05/18 06:56 36.5 81 16 114/76 76 117/75 Meds Administered Last 24 Hrs: Meds Administered (Past 24Hrs) Medications (Trade) Dose Ordered Sig/Yassine Route Start Time Stop Time Status Last Admin Dose Admin Sertraline HCl (Zoloft Tab) 100 mg QAM PO 02/04/18 09:00 03/06/18 08:59 02/05/18 08:52 100 MG Risperidone (Risperdal Tab) 0.5 mg BID PO 02/03/18 22:00 03/05/18 21:59 02/05/18 08:51 0.5 MG Hydroxyzine HCl (Vistaril Tab) 50 mg HS PO 02/03/18 22:00 03/05/18 21:59 02/04/18 21:09 50 MG Sertraline HCl (Zoloft Tab) 25 mg QAM PO 02/05/18 09:00 03/07/18 08:59 02/05/18 08:55 25 MG
--- NOTE | 2018-02-05 13:56 | Medical Student: BHU Only ---
Psychiatric Progress Note Date of Service: Feb 05, 2018. SUBJECTIVE: Valentina Ibrahim is a 57 year old female with past medical history significant for OCD and mood disorder who was admitted to the [facility] on 02/01/18 on a 201 voluntary commitment for decreasing function and homicidal ideations secondary to OCD. She was previously admitted to the [facility] from 12/25-12/30/17 for similar symptoms where she refused pharmacotherapy. The patient was seen and assessed today, and progress was reviewed with nursing. Last night, she struggled with her compulsions. She admits that last night she washed her hands after using the restroom and quickly went to group. She did not feel like she was clean during group and kept her hands to herself. After group, she returned to her room and washed her hands several times. Valentina also felt as if her mug was contaminated and requested a new cup. She required redirection from staff that this fear was actually her OCD symptoms. After using the restroom, she tries to move the soap bar to remind herself that she did in fact use soap, which helps control symptoms. Today, she is doing much better and has not had these compulsions as much. In general, she has noticed much improvement since starting the Risperdal and Zoloft. She is feeling a little lightheaded but does not think it was from the increase in her Zoloft this morning to 125 mg. Valentina was able to sleep 7 hours, although she admits to having some intrusive thoughts while sleeping. She rates her mood as 8/10 today. She does not have any thoughts of hurting herself. She is eating all her meals and walks laps around the unit to try to get exercise. She fears gaining weight on Risperdal but is willing to do so if her symptoms improve. She has been attending groups and finds them helpful. ROS: CONSTITUTIONAL: Denied HEENT: Eyes: Denied. Ears, Nose, Throat: Denied. SKIN: Denied. CARDIOVASCULAR: Denied. RESPIRATORY: Denied. GASTROINTESTINAL: Denied. GENITOURINARY: Denied. NEUROLOGICAL: Denied other than feeling lightheaded which began this morning MUSCULOSKELETAL: Denied. HEMATOLOGIC: Denied. LYMPHATICS: Denied. PSYCHIATRIC: Denied other than what is stated above. MEDICATIONS: Risperdal 0.5 mg BID Zoloft 125 mg qAM Vistaril 50 mg qPM for insomnia Vistaril 25 mg PRN for anxiety Ativan 0.5 mg q6h PRN for anxiety PHYSICAL EXAM: Medically cleared prior to admission Vitals: T 36.5, P 76, BP 117/75 MSE: Appearance is that of a casually dressed, anxious female who appears her stated age. The patient is generally cooperative with the interview. Eye contact is appropriate. Motor behavior is normal; no evidence of tardive dyskinesia, akathisia, or other abnormal movements. Speech: Normal volume, fast rate, normal tone. Affect: Mood congruent. Mood: Depressed and anxious. Thought process: Goal directed. Thought content: Endorses obsessions and compulsions related to cleanliness. Denies SI. Sometimes has "intrusive thoughts" which manifests as HI towards others. Perception: Denies auditory and visual hallucinations; does endorse hypnagogic and hypnopompic illusions where she feels her mom is calling her before going to sleep or waking Cognition: Cognition appears normal. Intelligence is estimated to be above average. Insight is estimated to be appropriate. Judgment is estimated to be appropriate. LABS: Test 02/01/18 11:25 02/01/18 11:39 02/01/18 11:40 02/02/18 06:59 Urine Color YELLOW Urine Appearance CLEAR Urine pH 6.0 Urine Specific [place] 1.021 Urine Protein NEG Urine Glucose (UA) NEG Urine Ketones TRACE Urine Occult Blood NEG Urine Nitrite NEG Urine Bilirubin NEG Urine Urobilinogen NEG Urine Leukocyte Esterase NEG Sodium Level 139 Potassium Level 3.9 Chloride Level 104 Carbon Dioxide Level 29 Anion Gap 6.0 Blood Urea Nitrogen 17 Creatinine 0.95 Est Creatinine Clear Calc Drug Dose 59.7 Estimated GFR () 76.0 Estimated GFR (Non- 65.6 BUN/Creatinine Ratio 18.1 Random Glucose 100 Calcium Level 9.3 Total Bilirubin 0.6 Direct Bilirubin 0.1 Aspartate Amino Transferase (AST) 16 Alanine Aminotransferase (ALT) 25 Alkaline Phosphatase 76 Total Protein 7.5 Albumin 4.2 Salicylates Level < 1.7 Acetaminophen Level < 2 Ethyl Alcohol mg/dL < 3.0 White Blood Count 6.85 Red Blood Count 4.37 Hemoglobin 14.6 Hematocrit 42.2 Mean Corpuscular Volume 96.6 Mean Corpuscular Hemoglobin 33.4 Mean Corpuscular Hemoglobin Concent 34.6 Platelet Count 239 Mean Platelet Volume 9.4 Neutrophils (%) (Auto) 65.0 Lymphocytes (%) (Auto) 25.0 Monocytes (%) (Auto) 9.2 Eosinophils (%) (Auto) 0.3 Basophils (%) (Auto) 0.4 Neutrophils # (Auto) 4.45 Lymphocytes # (Auto) 1.71 Monocytes # (Auto) 0.63 Eosinophils # (Auto) 0.02 Basophils # (Auto) 0.03 RDW Standard Deviation 43.3 RDW Coefficient of Variation 12.3 Immature Granulocyte % (Auto) 0.1 Immature Granulocyte # (Auto) 0.01 Urine Opiates Screen NEG Urine Methadone, Qualitative NEG Urine Barbiturates NEG Urine Phencyclidine (PCP) Level NEG Ur Amphetamine/Methamphetamine NEG MDMA (Ecstasy) Screen NEG Urine Benzodiazepines Screen NEG Urine Cocaine Metabolite NEG Urine Marijuana (THC) NEG Fasting Glucose 77 Triglycerides Level 99 Cholesterol Level 131 HDL Cholesterol 52 LDL Cholesterol, Calculated 59 VLDL Cholesterol, Calculated 20 Cholesterol/HDL Ratio 2.5 Thyroid Stimulating Hormone (TSH) 3.190 Free Thyroxine 0.98 ASSESSMENT: Valentina Ibrahim is a 57 year old female with past medical history significant for OCD and depression who was admitted to the [facility] on 02/01/18 on a 201 voluntary commitment for decreasing function and homicidal ideations secondary to OCD. She was previously admitted to the [facility] from 12/25-12/30/17 for similar symptoms where she refused pharmacotherapy. Prior to this admission, she did start on a small dose of Zoloft prescribed by her GP. During this admission, she was started on risperidone and her dose of Zoloft was increased. Nursing staff has reported better behavior and mood since admission, which pharmacotherapy is likely contributing to. Per patient, her obsessions and compulsions have decreased in frequency, although she did experience some repetitive handwashing and fears of contamination with her mug last night. Today , patient is doing better. She is tolerating medications well with no side effects. Fasting labs and TSH were checked on 02/02 which were normal. PLAN: 1. OCD a. Encourage participation in group; q15 safety checks b. Risperidone increased from 0.25 mg BID to 0.5 mg BID on 02/03; Will increase to 1 mg BID with tonight's dose. Patient is tolerating medication well - no side effects or abnormal motor movements; she and staff are noticing improvements in behavior. c. Zoloft increased from 100 mg to 125 mg this morning; patient is tolerating medication well with no side effects (lightheadedness does not appear to be related to medication but will continue to monitor if symptoms persist). Will increase further to 150 mg daily tomorrow as patient is showing improvement of mood and OCD symptoms on medication. d. TSH and fasting labs were normal when checked on 02/02. e. Continue Vistaril 50 mg qPM for insomnia. Patient was able to sleep through the night with scheduled dose. 2. Mood Disorder a. Zoloft was increased today. Patient still feels anxious but has noticed improvement. b. Continue Vistaril 25 mg PRN for anxiety. c. Continue Ativan 0.5 mg PRN q6h for anxiety.
[2018-02-05] MEDS: RISPERIDONE 1 MG TAB PO SCH (21:07)
[2018-02-05] MEDS: BIMATOPROST 0.01% OP SOLN 2.5 ML BTL OP SCH (21:07)
[2018-02-05] MEDS: hydrOXYzine HCL 25 MG TAB PO SCH (21:07)
[2018-02-06 07:09] VITALS: BP_SYST 103; BP_SYST 99; BP_DIAS 65; BP_DIAS 69; PULSE 71; PULSE 80; TEMP 36.4
[2018-02-06] MEDS: SERTRALINE HCL 100 MG TAB PO SCH (10:14)
[2018-02-06] MEDS: CHOLECALCIFEROL 1000 INTER.UNIT TAB PO SCH (10:14)
[2018-02-06] MEDS: MULTIVITAMIN TAB PO SCH (10:14)
[2018-02-06] MEDS: SERTRALINE HCL 50 MG TAB PO SCH (10:14)
[2018-02-06] MEDS: RANITIDINE HCL 150 MG TAB PO SCH ×2 (10:14→21:13)
[2018-02-06] MEDS: RISPERIDONE 1 MG TAB PO SCH ×2 (10:14→21:12)
[2018-02-06] MEDS ORDERED: POLYETHYLENE (MIRALAX) 17 GM PACK PO PRN (10:15)
--- NOTE | 2018-02-06 11:23 | Psychiatric Progress Notes ---
Progress Note Date of Service Feb 06, 2018. Interval History Valentina Ibrahim is a 57-year-old female admitted on Feb 01, 2018 at 14:45 on a voluntary status. She is known to us from prior psychotropic hospitalization -12/30/17. During her recent psychiatric hospitalization she refused pharmacotherapy for treatment of OCD. She re-presents with worsening symptoms through the [facility]. Chief Complaint "I just over-think what I'm touching and where things have been, but it's consuming my day". Subjective Patient was seen & assessed interval progress reviewed with Nursing. Staff reports the patient received a visit from her brother and [id number] last evening. Pt is scheduled to follow with Dr. Valdovinos for outpatient medication management. Pt's Risperdal and Zoloft were increased yesterday to better target intrusive thoughts and obsessions. Pt reported herself an "8 and satisfied" at community meeting last evening. Pt was seen today to assess progress since admission. Pt states that she was doing quite well following her last admission and says, "It just took one fly to set me off again, that's so silly." Throughout the duration of the interview, the patient reports distress from her compulsions and intrusive thoughts, but finds difficulty coping with them. Pt continues to focus on the "bee analogy" given to her yesterday. Pt states she had found herself praying following any intrusive thoughts, but has now realized this in itself has become a compulsion. We discussed at length intention of prayer and focusing on setting time aside separately for this, so as to fight it becoming a constant compulsion. Pt discussed in detail her hand washing routine, which is lengthy with many specific quantitative steps. Pt was encouraged to consider ways she could challenge the intrusive thoughts a small step at a time. We discussed taking one day, to simplify one step, and then evaluate herself. Pt states it is not often "in the moment" that she has intrusive thoughts, but rather that she is met with doubts several minutes later as to "whether I used the right amount of soap, or did my hands touch anything between being washed and dried?" We discussed using this setting as a place to challenge these behaviors, as she is concerned, "if we fix this, what happens when a new obsession pops up?" Pt was encouraged to focus on how she tackles each issue so as to be able to apply it to the next. Pt feels that she is noticing a slow difference, but reports ongoing OCD tendencies and intrusive thoughts. Pt denies SI at this encounter and denies concerns or needs today. Review of Systems Psych: denies symptoms other than stated above Constitutional: denied Cardiovascular: denied GI: denied Neurologic: denied Remainder of 10 body systems also reviewed and denied other than noted above. Sleep Information Total Hours of Sleep: 7.00 Meal Information Percent of Breakfast Consumed: 100 Percent of Lunch Consumed: 100 Percent of Dinner Consumed: 100 Mental Status Exam During interview pt is: alert and oriented, cooperative Appearance: appropriately dressed Eye contact is: good Motor behavior is: steady gait & station, no abnormal motor movements Speech: normal in rate, rhythm & volume (Excessive in the sense of thoroughly wanting to explain thoughts and history) Affect: mood congruent, anxious Mood is: anxious Thought process: goal directed Thought content: obsessions (with feeling she is contaminating others), compulsions, guilt (about thoughts and behavior), other (frequent intrusive thoughts) Suicidal thought are: denied Homicidal thoughts are: denied Hallucinations: denies auditory, denies visual Cognition: memory grossly intact, language grossly intact Intelligence estimated to be: above average Insight: fair Judgement: good Impression Symptoms of OCD ongoing. At times patient is able to rationalize, challenge, and ignore intrusive thoughts; other times she is more consumed with them. Pt' s fear seems to be contaminating others on the unit, putting down towels and refraining from touching other objects patient's might use. Pt shares the analogy used yesterday about treating thoughts as "bees", she states this idea is helpful and she is focusing on not saying a prayer with every thoughts. We discussed at length her desire to pray to ask forgiveness for the intrusive thoughts, and explored the idea of setting aside separate prayer time, to ensure that these prayers did not become a constant compulsion. Pt was encouraged to find simple ways to challenge her intrusive thoughts while working to simplify routines in a way that would allow them to not consume her day. Pt is able to challenge her thought process, but is still frequently consumed with intrusive thoughts causing her to doubt herself. Pt has noticed a small, but not remarkable improvement in her symptoms and has been encouraged to work with the counselors on the unit to find ways to challenge herself and her thoughts. Pt requires ongoing mental health treatment at this time as she is likely to slip back into frequent and debilitating obsessions and compulsions if not treated adequately both medically and therapeutically. Pt has history of her OCD interfering with her functioning at home with causes her to be at risk of harm to self if not adequately improved at discharge. Plan (1) OCD (obsessive compulsive disorder) 02/01/18 - Patient's intrusive thoughts or choices behaviors are severe and incapacitating she is admitted on a voluntary status to the behavioral health unit and will be maintained on every 15 minute safety checks - She will be encouraged to participate in unit programming as appropriate - She will be trialed on Risperdal 0.25 mg by mouth every 4 hours when necessary for severe OCD symptoms. Risks and benefits as well as alternatives were reviewed which included discussion of potential metabolic side effects and tardive dyskinesia. Patient declined medication information handout - fasting labs and repeat TSH/FT4 in AM - Increase Zoloft to 75 mg daily tomorrow with plan to continue titration as indicated and tolerated - Will also make an Ativan 0.5 mg every 6 hours when necessary available temporarily for anxiety - Coordinate care with outpatient providers. She will need a psychiatric provider post discharge 02/02 - Already demonstrating improvement on low-dose Risperdal. We'll change schedule to 0.25 mg by mouth twice a day standing. May consider consolidating to at bedtime prior to discharge - will consider further Zoloft titration pending need and tolerability - Fasting labs and thyroid studies within normal limits 02/02/201802/03 - The patient continues to show some improvement in response to treatment. She has been able to eat 100% of her meals, and reports that she has been sleeping somewhat better. Today, we will increase her dose of sertraline from sertraline 75 mg daily to sertraline 100 mg daily. We will also increase her dose of risperidone from 0.25 mg twice a day to 0.5 mg twice a day. 02/04 -today, the patient tells me that she feels that she is improving, she is feeling less depressed and less anxious. She continues to be able to eat her meals and was able to sleep for approximately 7-1/2 hours last night with difficulty awakening this morning. The patient also indicates that she is tolerating her medications well and has noted no side effects. She also tells me that she realizes that they are helping, but she continues to have significant symptoms of OCD that are interfering with her activities of daily living. For example, she finds that she is compelled to say "silent prayer" each time she has an intrusive obsessive thought, and this happens with a frequency that it often breaks her concentration and, for example, interferes with her ability to attend to what people are saying to her. -The plan is to continue risperidone 0.5 mg twice a day. We will increase her dose of sertraline from 100 mg daily 225 mg daily, beginning in the morning. The patient has found a scheduled dose of hydroxyzine 50 mg at bedtime to be helpful because she does not ask for it, and if she takes it she sleeps through the night 02/05 - As noted, the patient continues to tell me that she has been less anxious and her mood has been "pretty good." However, last night, following a visit by the associate stopper grinder of her pentecostalism, she experienced an "uptake" in her OCD symptoms. I am continuing to teach her strategies for coping with OCD symptoms while, same time, adjusting her psychiatric medications in order to assist her by bringing these symptoms under better control. Today, she began sertraline 125 mg daily, and some of this for, continues to tolerate sertraline well without any noted side effects. I will increase her dose of risperidone to 1 mg twice a day, beginning with her evening dose today. I discussed this with the patient and she is in agreement. We also reviewed risks and anticipated benefits of risperidone. Also, I am encouraging her to be more socially active and to develop improved leisure skills. The patient tells me that she has noticed that that this year she has, and the more she has to occupy her mind, the less obsessive she tends to be, and I am hoping to work with that observation. 02/06 - Continue Zoloft 125mg daily, Risperdal increased to 1mg BID, will continue this dose for now to observe effect. - Encouraged discussion of her thoughts and compulsions with staff, continue with group programming. (2) Mood disorder 3/3 - Depressive disorder not otherwise specified - History of increased OCD symptomatology when depressed in the past - Endorsing increasing hopelessness and passive SI without plan or intent - Zoloft as above 3/4 - Mood appearing less hopeless with reduction of anxiety today 02/03 - the patient reports that she remains anxious and depressed, but has noted some improvement in her mood since hospitalization. She has continued to have periodic passive thoughts of suicide, without any plan or intent. She is future oriented, describes goals for her future, and indicates that she has never intentionally engaged in self-injurious behaviors. In the past, she has had intrusive thoughts of hanging herself, taking an overdose, or starving herself to - but tells me that she has never had any intent to act on these thoughts. 02/04 - The patient reports that her mood has gotten "better," and she says that she is quite aware that she is significantly less anxious than she had been in the recent past. She notes that she has had no further thoughts of suicide, and reiterates that she would never act on any thoughts, even related to occur. The patient remains future oriented and setting goals for herself. Patient's thought content is marked by frequent self depreciating thoughts. For example, the patient regularly makes statements such as "I guess that is a pretty dominant thing to do," "I guess I am just lazy." During her visit today , I was able to gently confront the patient about this. 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 02/05 - Ms. Ibrahim tells me today that she does not currently feel depressed, and is pleased to note that her mood has been "pretty good." I have observed her laughing with peers, and interacting in inappropriately jocular manner with several. Today, she caught herself that she was about to make a self depreciating statements, and thereby demonstrated that she is aware of this tendency. We discussed the fact that people "here" their own self depreciating statements and they can reinforce feelings of inadequacy and low self-esteem 02/06 - Continue Zoloft 125mg and group programming to address depressive symptoms. Discharge / Aftercare Planning Primary Care Physician: Name: Dr. Seay Appointment Notes: Appointment scheduled as needed Psychiatrist: Name: Dr. Valdovinos - [facility] Date of Appointment: Mar 03, 2018 Time of Appointment: 8:45 Appointment Notes: [address] [place] [address] Therapist: Name: Julio C Aaron - [facility] Date of Appointment: Feb 05, 2018 Time of Appointment: 11:00 am Appointment Notes: [address] [place] [address] [employer] Data [employer] Architect: Name: none Other: Name of Appointment #1: Dr. Valdovinos [facility] Date of Appointment #1: Mar 10, 2018 Time of Appointment #1: 1:00 p.m. Appointment #1 Notes: Follow up to initial intake with Dr. Valdovinos Visit Code E&M Code: 56604 Inventory Assets Strengths: Help seeking, now willing to accept treatment, history of high functional baseline Needs: Acute medical intervention for severity of anxious symptomatology Risk Factors Assessment : Yes /single/: Yes Health problems: No Mental Health Diagnoses: Yes Substance use disorders: No Previous attempt: No Family history of suicide: No Previous psychiatric stay: Yes Hopelessness: Yes Smoker: No Protective Factors Assessment Buddhism beliefs: Yes : No Responsible for young children: No Employed: No Supportive family: Yes Data Vital Signs Last 24 Hrs: Date Time Temp Pulse Resp B/P (MAP) Pulse Ox O2 Delivery O2 Flow Rate FiO2 02/06/18 07:09 36.4 71 16 99/65 80 103/69 Meds Administered Last 24 Hrs: Meds Administered (Past 24Hrs) Medications (Trade) Dose Ordered Sig/Yassine Route Start Time Stop Time Status Last Admin Dose Admin Sertraline HCl (Zoloft Tab) 25 mg QAM PO 02/05/18 09:00 03/07/18 08:59 02/06/18 10:14 25 MG Risperidone (Risperdal Tab) 1 mg BID PO 02/05/18 22:00 03/07/18 21:59 02/06/18 10:14 1 MG
--- NOTE | 2018-02-06 11:44 | Medical Student: BHU Only ---
Psychiatric Progress Note Date of Service: Feb 06, 2018. SUBJECTIVE: Valentina Ibrahim is a 57 year old female with past medical history significant for OCD and mood disorder who was admitted to the [facility] on 02/01/18 on a 201 voluntary commitment for decreasing function and homicidal ideations secondary to OCD. She was previously admitted to the [facility] from 12/25-12/30/17 for similar symptoms where she refused pharmacotherapy. The patient was seen and assessed today, and progress was reviewed with nursing. Today, Valentina continues to have some OCD symptoms. For example, last night she wanted floss picks but needed to retrieve them herself as she did not like when a staff member initially touched them to bring them to her. When this interviewer first entered the room, the patient was washing her hands and admitted to doing so several times. She required reassurance that she did carry her soap outside of the room and threw her paper towel away. Once reassured, she felt better. She liked Dr. Uribe's idea to consider intrusive thoughts as a "bumblebee," and she is trying to let the thoughts fly in her mind for a bit before letting it fly out. She is trying not to pray after having an intrusive thought as she does not want praying to become an obsession as well. Valentina continues to tolerate the increase in her Zoloft and Risperdal. She was having some lightheadedness yesterday but was told this should decrease as her body becomes adjusted to the medication. She does not feel "foggy" or lightheaded today. She was able to sleep 7 hours last night. She has noticed that she is less anxious and continues to feel hopeful about overcoming her obsessions/compulsions. Valentina has gained 10 pounds since admission, which she attributes to eating more and less exercise. She does not appear to be overly worried about this weight gain but does state she should probably eat less. She rates her mood as 8/10 today. She does not have any thoughts of hurting herself. She has been attending groups and finds them helpful. ROS: CONSTITUTIONAL: Denied HEENT: Eyes: Denied. Ears, Nose, Throat: Denied. SKIN: Denied. CARDIOVASCULAR: Denied. RESPIRATORY: Denied. GASTROINTESTINAL: Denied. GENITOURINARY: Denied. NEUROLOGICAL: Denied other than feeling lightheaded. MUSCULOSKELETAL: Denied. HEMATOLOGIC: Denied. LYMPHATICS: Denied. PSYCHIATRIC: Denied other than what is stated above. MEDICATIONS: Risperdal 1 mg BID Zoloft 125 mg qAM Vistaril 50 mg qPM for insomnia Vistaril 25 mg PRN for anxiety Ativan 0.5 mg q6h PRN for anxiety PHYSICAL EXAM: Medically cleared prior to admission Vitals: T 36.4, P 80, BP 103/69 MSE: Appearance is that of a casually dressed, anxious female who appears her stated age. The patient is generally cooperative with the interview. Eye contact is appropriate. Motor behavior is normal; no evidence of tardive dyskinesia, akathisia, or other abnormal movements. Speech: Normal volume, fast rate, normal tone. Affect: Mood congruent. Mood: Depressed and anxious. Thought process: Goal directed. Thought content: Endorses obsessions and compulsions related to cleanliness. Denies SI. Sometimes has "intrusive thoughts" which manifests as HI towards others. Perception: Denies auditory and visual hallucinations; does endorse hypnagogic and hypnopompic illusions where she feels her mom is calling her before going to sleep or waking Cognition: Cognition appears normal. Intelligence is estimated to be above average. Insight is estimated to be appropriate. Judgment is estimated to be appropriate. LABS: Test 02/01/18 11:25 02/01/18 11:39 02/01/18 11:40 02/02/18 06:59 Urine Color YELLOW Urine Appearance CLEAR Urine pH 6.0 Urine Specific [place] 1.021 Urine Protein NEG Urine Glucose (UA) NEG Urine Ketones TRACE Urine Occult Blood NEG Urine Nitrite NEG Urine Bilirubin NEG Urine Urobilinogen NEG Urine Leukocyte Esterase NEG Sodium Level 139 Potassium Level 3.9 Chloride Level 104 Carbon Dioxide Level 29 Anion Gap 6.0 Blood Urea Nitrogen 17 Creatinine 0.95 Est Creatinine Clear Calc Drug Dose 59.7 Estimated GFR () 76.0 Estimated GFR (Non- 65.6 BUN/Creatinine Ratio 18.1 Random Glucose 100 Calcium Level 9.3 Total Bilirubin 0.6 Direct Bilirubin 0.1 Aspartate Amino Transferase (AST) 16 Alanine Aminotransferase (ALT) 25 Alkaline Phosphatase 76 Total Protein 7.5 Albumin 4.2 Salicylates Level < 1.7 Acetaminophen Level < 2 Ethyl Alcohol mg/dL < 3.0 White Blood Count 6.85 Red Blood Count 4.37 Hemoglobin 14.6 Hematocrit 42.2 Mean Corpuscular Volume 96.6 Mean Corpuscular Hemoglobin 33.4 Mean Corpuscular Hemoglobin Concent 34.6 Platelet Count 239 Mean Platelet Volume 9.4 Neutrophils (%) (Auto) 65.0 Lymphocytes (%) (Auto) 25.0 Monocytes (%) (Auto) 9.2 Eosinophils (%) (Auto) 0.3 Basophils (%) (Auto) 0.4 Neutrophils # (Auto) 4.45 Lymphocytes # (Auto) 1.71 Monocytes # (Auto) 0.63 Eosinophils # (Auto) 0.02 Basophils # (Auto) 0.03 RDW Standard Deviation 43.3 RDW Coefficient of Variation 12.3 Immature Granulocyte % (Auto) 0.1 Immature Granulocyte # (Auto) 0.01 Urine Opiates Screen NEG Urine Methadone, Qualitative NEG Urine Barbiturates NEG Urine Phencyclidine (PCP) Level NEG Ur Amphetamine/Methamphetamine NEG MDMA (Ecstasy) Screen NEG Urine Benzodiazepines Screen NEG Urine Cocaine Metabolite NEG Urine Marijuana (THC) NEG Fasting Glucose 77 Triglycerides Level 99 Cholesterol Level 131 HDL Cholesterol 52 LDL Cholesterol, Calculated 59 VLDL Cholesterol, Calculated 20 Cholesterol/HDL Ratio 2.5 Thyroid Stimulating Hormone (TSH) 3.190 Free Thyroxine 0.98 ASSESSMENT: Valentina Ibrahim is a 57 year old female with past medical history significant for OCD and depression who was admitted to the [facility] on 02/01/18 on a 201 voluntary commitment for decreasing function and homicidal ideations secondary to OCD. She was previously admitted to the [facility] from 12/25-12/30/17 for similar symptoms where she refused pharmacotherapy. Prior to this admission, she did start on a small dose of Zoloft prescribed by her GP. During this admission, she was started on risperidone and her dose of Zoloft was increased. Nursing staff has reported better behavior and mood since admission, which pharmacotherapy is likely contributing to. Per patient, her obsessions and compulsions have decreased in frequency, although she does continue to have symptoms. Today, patient is doing better. She is tolerating medications well with no side effects. Fasting labs and TSH were checked on 02/02 which were normal. PLAN: 1. OCD a. Encourage participation in group; q15 safety checks b. Risperidone increased from 0.25 mg BID to 0.5 mg BID on 02/03; Increased to 1 mg BID on 02/05. Patient is tolerating medication well- no side effects or abnormal motor movements; she and staff are noticing improvements in behavior although she continues to wash hands frequently. c. Zoloft was increased to 125 mg on 02/05; patient is tolerating medication well d. TSH and fasting labs were normal when checked on 02/02. e. Continue Vistaril 50 mg qPM for insomnia. Patient is able to sleep through the night with scheduled dose. 2. Mood Disorder a. Zoloft was increased yesterday. Patient has noticed improvement in mood and anxiety. b. Continue Vistaril 25 mg PRN for anxiety. c. Continue Ativan 0.5 mg PRN q6h for anxiety.
[2018-02-06] MEDS: BIMATOPROST 0.01% OP SOLN 2.5 ML BTL OP SCH (21:12)
[2018-02-06] MEDS: hydrOXYzine HCL 25 MG TAB PO SCH (21:13)
[2018-02-07 06:57] VITALS: BP_SYST 108; BP_SYST 113; BP_DIAS 74; BP_DIAS 75; PULSE 72; PULSE 73; TEMP 36.3
[2018-02-07] MEDS: CHOLECALCIFEROL 1000 INTER.UNIT TAB PO SCH (08:40)
[2018-02-07] MEDS: SERTRALINE HCL 100 MG TAB PO SCH (08:40)
[2018-02-07] MEDS: RANITIDINE HCL 150 MG TAB PO SCH ×2 (08:40→21:13)
[2018-02-07] MEDS: RISPERIDONE 1 MG TAB PO SCH ×2 (08:40→21:13)
[2018-02-07] MEDS: MULTIVITAMIN TAB PO SCH (08:40)
[2018-02-07] MEDS: SERTRALINE HCL 50 MG TAB PO SCH (08:41)
--- NOTE | 2018-02-07 14:47 | Psychiatric Progress Notes ---
Progress Note Date of Service Feb 07, 2018. Interval History Valentina Ibrahim is a 57-year-old female admitted on Feb 01, 2018 at 14:45 on a voluntary status. She is known to us from prior psychiatric hospitalization -12/30/17. During her recent psychiatric hospitalization she refused pharmacotherapy for treatment of OCD. She re-presents with worsening symptoms through the [facility]. Chief Complaint "I feel like the Risperdal is making me spacey". Subjective Patient was seen & assessed interval progress reviewed with Treatment Team. Staff discussed plan to track baseline behavior in regard to hand washing and bottles of soap used. Pt has continued with frequent hand washing here on the unit, and although function appears better than at admission, would be beneficial to track compulsive behavior at baseline to determine improvement. Pt was seen today to assess progress since admission. Pt states that she feels she is doing well, but would like to focus on the sertraline rather than the risperidone, as she is feeling more "spacey". Pt is willing for increase in sertraline to target obsessions and compulsions, but is stating she does not want risperidone increased further during her time here as "my goal was to never feel like a zombie." Pt states she has noticed that since starting risperidone, it has been easier for her to "push thoughts out of my mind, they don't linger as long". Pt again discusses her very rigid hand washing routine, stating that she has counts for every step, and questions washing her hands at all if not done to her satisfaction. Pt is agreeable to working with staff to track hand washing behavior. She was informed about the reasoning behind this and states she will participate. She denies other concerns today. Review of Systems Psych: denies symptoms other than stated above Constitutional: denied Cardiovascular: denied GI: denied Neurologic: denied Remainder of 10 body systems also reviewed and denied other than noted above. Sleep Information Total Hours of Sleep: 7.25 Meal Information Percent of Breakfast Consumed: 100 Percent of Lunch Consumed: 100 Percent of Dinner Consumed: 100 Mental Status Exam During interview pt is: alert and oriented, cooperative Appearance: appropriately dressed Eye contact is: good Motor behavior is: steady gait & station, no abnormal motor movements Speech: normal in rate, rhythm & volume Affect: mood congruent, anxious Mood is: anxious (about obsessions and ability to function at home) Thought process: goal directed Thought content: obsessions (concerned about contaminating others), compulsions (hand washing and prayer), guilt Suicidal thought are: denied Homicidal thoughts are: denied Hallucinations: denies auditory, denies visual Cognition: memory grossly intact, language grossly intact Intelligence estimated to be: above average Insight: fair Judgement: good Impression Pt states several times today of needing to wash her hands more than once. Pt was removed from group for interview and reported to this provider, "I didn't want to touch that thing they were throwing around, I couldn't remember if I had washed my hands, and didn't want to pass germs to anyone else." Pt continues to be able to challenge her thoughts during conversations, but finds it hard to sit with the thoughts. She states, "a new obsession will resolve the old one, but then I worry about that instead." Pt is agreeable to tracking hand washing behavior along with staff in order to determine baseline behavior and give objective means to monitor improvement. Pt is also agreeable to increasing sertraline to 150mg qAM. Pt requires ongoing mental health treatment at this time as she is likely to slip back into frequent and debilitating obsessions and compulsions if not treated adequately both medically and therapeutically. Pt has history of her OCD interfering with her functioning at home with causes her to be at risk of harm to self if not adequately improved at discharge. Plan (1) OCD (obsessive compulsive disorder) 02/01/18 - Patient's intrusive thoughts or choices behaviors are severe and incapacitating she is admitted on a voluntary status to the behavioral health unit and will be maintained on every 15 minute safety checks - She will be encouraged to participate in unit programming as appropriate - She will be trialed on Risperdal 0.25 mg by mouth every 4 hours when necessary for severe OCD symptoms. Risks and benefits as well as alternatives were reviewed which included discussion of potential metabolic side effects and tardive dyskinesia. Patient declined medication information handout - fasting labs and repeat TSH/FT4 in AM - Increase Zoloft to 75 mg daily tomorrow with plan to continue titration as indicated and tolerated - Will also make an Ativan 0.5 mg every 6 hours when necessary available temporarily for anxiety - Coordinate care with outpatient providers. She will need a psychiatric provider post discharge 02/02 - Already demonstrating improvement on low-dose Risperdal. We'll change schedule to 0.25 mg by mouth twice a day standing. May consider consolidating to at bedtime prior to discharge - will consider further Zoloft titration pending need and tolerability - Fasting labs and thyroid studies within normal limits 02/02/201802/03 - The patient continues to show some improvement in response to treatment. She has been able to eat 100% of her meals, and reports that she has been sleeping somewhat better. Today, we will increase her dose of sertraline from sertraline 75 mg daily to sertraline 100 mg daily. We will also increase her dose of risperidone from 0.25 mg twice a day to 0.5 mg twice a day. 02/04 -today, the patient tells me that she feels that she is improving, she is feeling less depressed and less anxious. She continues to be able to eat her meals and was able to sleep for approximately 7-1/2 hours last night with difficulty awakening this morning. The patient also indicates that she is tolerating her medications well and has noted no side effects. She also tells me that she realizes that they are helping, but she continues to have significant symptoms of OCD that are interfering with her activities of daily living. For example, she finds that she is compelled to say "silent prayer" each time she has an intrusive obsessive thought, and this happens with a frequency that it often breaks her concentration and, for example, interferes with her ability to attend to what people are saying to her. -The plan is to continue risperidone 0.5 mg twice a day. We will increase her dose of sertraline from 100 mg daily 225 mg daily, beginning in the morning. The patient has found a scheduled dose of hydroxyzine 50 mg at bedtime to be helpful because she does not ask for it, and if she takes it she sleeps through the night 02/05 - As noted, the patient continues to tell me that she has been less anxious and her mood has been "pretty good." However, last night, following a visit by the associate sr risk management consultant of her taoism, she experienced an "uptake" in her OCD symptoms. I am continuing to teach her strategies for coping with OCD symptoms while, same time, adjusting her psychiatric medications in order to assist her by bringing these symptoms under better control. Today, she began sertraline 125 mg daily, and some of this for, continues to tolerate sertraline well without any noted side effects. I will increase her dose of risperidone to 1 mg twice a day, beginning with her evening dose today. I discussed this with the patient and she is in agreement. We also reviewed risks and anticipated benefits of risperidone. Also, I am encouraging her to be more socially active and to develop improved leisure skills. The patient tells me that she has noticed that that this year she has, and the more she has to occupy her mind, the less obsessive she tends to be, and I am hoping to work with that observation. 02/06 - Continue Zoloft 125mg daily, Risperdal increased to 1mg BID, will continue this dose for now to observe effect. - Encouraged discussion of her thoughts and compulsions with staff, continue with group programming. 02/07 - Zoloft increased to 150mg qAM. 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 She has continued to have periodic passive thoughts of suicide, without any plan or intent. She is future oriented, describes goals for her future, and indicates that she has never intentionally engaged in self-injurious behaviors. In the past, she has had intrusive thoughts of hanging herself, taking an overdose, or starving herself to - but tells me that she has never had any intent to act on these thoughts. 02/04 - The patient reports that her mood has gotten "better," and she says that she is quite aware that she is significantly less anxious than she had been in the recent past. She notes that she has had no further thoughts of suicide, and reiterates that she would never act on any thoughts, even related to occur. The patient remains future oriented and setting goals for herself. Patient's thought content is marked by frequent self depreciating thoughts. For example, the patient regularly makes statements such as "I guess that is a pretty dominant thing to do," "I guess I am just lazy." During her visit today , I was able to gently confront the patient about this. 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 02/05 - Ms. Ibrahim tells me today that she does not currently feel depressed, and is pleased to note that her mood has been "pretty good." I have observed her laughing with peers, and interacting in inappropriately jocular manner with several. Today, she caught herself that she was about to make a self depreciating statements, and thereby demonstrated that she is aware of this tendency. We discussed the fact that people "here" their own self depreciating statements and they can reinforce feelings of inadequacy and low self-esteem 3 - Continue Zoloft 125mg and group programming to address depressive symptoms. 02/07 - Zoloft increased to 150mg qAM. Discharge / Aftercare Planning Primary Care Physician: Name: Dr. Seay Appointment Notes: Appointment scheduled as needed Psychiatrist: Name: Dr. Bonifacio Green [facility] Date of Appointment: Mar 03, 2018 Time of Appointment: 8:45 Appointment Notes: [address] [facility] [address] [facility] [address] Therapist: Name: Julio C Walker [facility] Date of Appointment: Feb 05, 2018 Time of Appointment: 11:00 am [facility]ointment Notes: [address] [facility] [address] Supervisor Cured Meats: Name: none Other: Name of Appointment #1: Dr. Bonifacio Green [facility] Date of Appointment #1: Mar 10, 2018 Time of Appointment #1: 1:00 p.m. Appointment #1 Notes: Follow up to initial intake with Dr. Valdovinos Visit Code E&M Code: 27549 Inventory Assets Strengths: Help seeking, now willing to accept treatment, history of high functional baseline Needs: Acute medical intervention for severity of anxious symptomatology Risk Factors Assessment : Yes /single/: Yes Health problems: No Mental Health Diagnoses: Yes Substance use disorders: No Previous attempt: No Family history of suicide: No Previous psychiatric stay: Yes Hopelessness: Yes Smoker: No Protective Factors Assessment Hindu beliefs: Yes : No Responsible for young children: No Employed: No Supportive family: Yes Data Vital Signs Last 24 Hrs: Date Time Temp Pulse Resp B/P (MAP) Pulse Ox O2 Delivery O2 Flow Rate FiO2 02/07/18 06:57 36.3 72 16 108/74 73 113/75 Meds Administered Last 24 Hrs: Meds Administered (Past 24Hrs) Medications (Trade) Dose Ordered Sig/Yassine Route Start Time Stop Time Status Last Admin Dose Admin Risperidone (Risperdal Tab) 1 mg BID PO 02/05/18 22:00 03/07/18 21:59 02/07/18 08:40 1 MG Polyethylene (Miralax Powder Packet) 17 gm DAILY PRN PO 02/06/18 10:15 03/08/18 10:14 02/07/18 04:32 17 GM
[2018-02-07] MEDS: BIMATOPROST 0.01% OP SOLN 2.5 ML BTL OP SCH (21:13)
[2018-02-07] MEDS: hydrOXYzine HCL 25 MG TAB PO SCH (21:17)
[2018-02-08 06:35] VITALS: BP_SYST 101; BP_SYST 97; BP_DIAS 64; BP_DIAS 67; PULSE 76; PULSE 79; TEMP 36.7
[2018-02-08] MEDS: RANITIDINE HCL 150 MG TAB PO SCH ×2 (08:11→21:26)
[2018-02-08] MEDS: MULTIVITAMIN TAB PO SCH (08:11)
[2018-02-08] MEDS: CHOLECALCIFEROL 1000 INTER.UNIT TAB PO SCH (08:11)
[2018-02-08] MEDS: RISPERIDONE 1 MG TAB PO SCH ×2 (08:11→21:26)
[2018-02-08] MEDS: SERTRALINE HCL 50 MG TAB PO SCH (08:12)
--- NOTE | 2018-02-08 11:01 | Psychiatric Progress Notes ---
Progress Note Date of Service Feb 08, 2018. Interval History Valentina Ibrahim is a 57-year-old female admitted on Feb 01, 2018 at 14:45 on a voluntary status. She is known to us from prior psychiatric hospitalization -12/30/17. During her recent psychiatric hospitalization she refused pharmacotherapy for treatment of OCD. She re-presents with worsening symptoms through the [facility] ER. Chief Complaint "I am a little foggy and dizzy at times but not all the time". Subjective Patient was seen & assessed interval progress reviewed with Treatment Team Per staff the patient is washing hands excessively, and they could not keep count but estimate > 100 times/day at least. Patient is cooperative with care and groups and in the milieu. Patient seen today alone and she reports she is having some intermittant orthostasis with positional changes but not everytime. SHe is worried that the risperdal will cause her psychosis when she comes off of it and seems reassured with provider's explanation that there is evidence fo this med in refractory OCD. SHe feels less foggy today. Discussed slow positional changes and observation overtime of the risperdal. SHe had sertraline 150mg for first time today and denies Side effects. SHe has some initial feelings since admission that she is less distressed and can fight some of her obsessions better but is still highly obessional about germs and causing harm to others, no one specific on the unit but in the past worried about harming family members accidentally. SHe denies SI, HI,intention or plan and these intrustive thoughts are distressing. SHe is anxious, and feels down about her ongoing disorder, but is accepting of medications. We discussed OCD and the role of Exposure and response prevention for her now and as she leaves the hospital and the role of medications in reducing distress. She remains focussed on needing [facility] providers. She slept okay and is eating okay, she denies akathisia, denies EPS or dystonia. Review of Systems Denies constitutional sx other than noted above, denies GI upset, denies changes in bowels, denies psychiatric sx other than noted above. Sleep Information Total Hours of Sleep: 8.00 Meal Information Percent of Breakfast Consumed: 100 Percent of Lunch Consumed: 100 Percent of Dinner Consumed: 100 Mental Status Exam During interview pt is: alert and oriented, cooperative Appearance: appropriately dressed Eye contact is: good Motor behavior is: steady gait & station, no abnormal motor movements Speech: normal in rate, rhythm & volume Affect: mood congruent, anxious Mood is: anxious (about obsessions and ability to function at home) Thought process: goal directed Thought content: obsessions (concerned about contaminating others), compulsions (hand washing and prayer), guilt Suicidal thought are: denied Homicidal thoughts are: denied Hallucinations: denies auditory, denies visual Cognition: memory grossly intact, language grossly intact Intelligence estimated to be: above average Insight: fair Judgement: good Impression Pt states several times today of needing to wash her hands more than once. Pt was removed from group for interview and reported to this provider, "I didn't want to touch that thing they were throwing around, I couldn't remember if I had washed my hands, and didn't want to pass germs to anyone else." Pt continues to be able to challenge her thoughts during conversations, but finds it hard to sit with the thoughts. She states, "a new obsession will resolve the old one, but then I worry about that instead." Pt is agreeable to tracking hand washing behavior along with staff in order to determine baseline behavior and give objective means to monitor improvement. Pt is also agreeable to increasing sertraline to 150mg qAM. Pt requires ongoing mental health treatment at this time as she is likely to slip back into frequent and debilitating obsessions and compulsions if not treated adequately both medically and therapeutically. Pt has history of her OCD interfering with her functioning at home with causes her to be at risk of harm to self if not adequately improved at discharge. Plan (1) OCD (obsessive compulsive disorder) 02/01/18 - Patient's intrusive thoughts or choices behaviors are severe and incapacitating she is admitted on a voluntary status to the behavioral health unit and will be maintained on every 15 minute safety checks - She will be encouraged to participate in unit programming as appropriate - She will be trialed on Risperdal 0.25 mg by mouth every 4 hours when necessary for severe OCD symptoms. Risks and benefits as well as alternatives were reviewed which included discussion of potential metabolic side effects and tardive dyskinesia. Patient declined medication information handout - fasting labs and repeat TSH/FT4 in AM - Increase Zoloft to 75 mg daily tomorrow with plan to continue titration as indicated and tolerated - Will also make an Ativan 0.5 mg every 6 hours when necessary available temporarily for anxiety - Coordinate care with outpatient providers. She will need a psychiatric provider post discharge 02/02 - Already demonstrating improvement on low-dose Risperdal. We'll change schedule to 0.25 mg by mouth twice a day standing. May consider consolidating to at bedtime prior to discharge - will consider further Zoloft titration pending need and tolerability - Fasting labs and thyroid studies within normal limits 02/02/201802/03 - The patient continues to show some improvement in response to treatment. She has been able to eat 100% of her meals, and reports that she has been sleeping somewhat better. Today, we will increase her dose of sertraline from sertraline 75 mg daily to sertraline 100 mg daily. We will also increase her dose of risperidone from 0.25 mg twice a day to 0.5 mg twice a day. 02/04 -today, the patient tells me that she feels that she is improving, she is feeling less depressed and less anxious. She continues to be able to eat her meals and was able to sleep for approximately 7-1/2 hours last night with difficulty awakening this morning. The patient also indicates that she is tolerating her medications well and has noted no side effects. She also tells me that she realizes that they are helping, but she continues to have significant symptoms of OCD that are interfering with her activities of daily living. For example, she finds that she is compelled to say "silent prayer" each time she has an intrusive obsessive thought, and this happens with a frequency that it often breaks her concentration and, for example, interferes with her ability to attend to what people are saying to her. -The plan is to continue risperidone 0.5 mg twice a day. We will increase her dose of sertraline from 100 mg daily 225 mg daily, beginning in the morning. The patient has found a scheduled dose of hydroxyzine 50 mg at bedtime to be helpful because she does not ask for it, and if she takes it she sleeps through the night 02/05 - As noted, the patient continues to tell me that she has been less anxious and her mood has been "pretty good." However, last night, following a visit by the associate parts department supervisor of her jehovah's witness, she experienced an "uptake" in her OCD symptoms. I am continuing to teach her strategies for coping with OCD symptoms while, same time, adjusting her psychiatric medications in order to assist her by bringing these symptoms under better control. Today, she began sertraline 125 mg daily, and some of this for, continues to tolerate sertraline well without any noted side effects. I will increase her dose of risperidone to 1 mg twice a day, beginning with her evening dose today. I discussed this with the patient and she is in agreement. We also reviewed risks and anticipated benefits of risperidone. Also, I am encouraging her to be more socially active and to develop improved leisure skills. The patient tells me that she has noticed that that this year she has, and the more she has to occupy her mind, the less obsessive she tends to be, and I am hoping to work with that observation. 02/06 - Continue Zoloft 125mg daily, Risperdal increased to 1mg BID, will continue this dose for now to observe effect. - Encouraged discussion of her thoughts and compulsions with staff, continue with group programming. 02/07 - Zoloft increased to 150mg qAM. Continue Risperdal 1mg BID - Pt to report to nurses station with hand washing behavior in order to better determine improvement in compulsions with treatment 02/08 - continue meds as above with eventual plan to get to 200-300mg overtime ( likely contiuing titration as outpatient), discussed risperdal and holding at this dose given she is having some possible side effects. - goals for today are "once and done" with hand washing at each washing, and to delay washings for no sooner than 15min, to work on tasks of distraction and/ or activities of relaxation in between. Discussed goal to fight waiting at the sink for 15min but rather if she feels like going to the sink checking the time and resisting approaching. If she loses track of time that is a victory and she is to avoid scheduling hand washing for every 15min as well. SHe verbalizes understanding and states "I will try" Discussed the goal is the practice of resisting, not perfection. (2) Mood disorder 3/ - Depressive disorder not otherwise specified - History of increased OCD symptomatology when depressed in the past - Endorsing increasing hopelessness and passive SI without plan or intent - Zoloft as above 02/02 - Mood appearing less hopeless with reduction of anxiety today 02/03 - the patient reports that she remains anxious and depressed, but has noted some improvement in her mood since hospitalization. She has continued to have periodic passive thoughts of suicide, without any plan or intent. She is future oriented, describes goals for her future, and indicates that she has never intentionally engaged in self-injurious behaviors. In the past, she has had intrusive thoughts of hanging herself, taking an overdose, or starving herself to - but tells me that she has never had any intent to act on these thoughts. 02/04 - The patient reports that her mood has gotten "better," and she says that she is quite aware that she is significantly less anxious than she had been in the recent past. She notes that she has had no further thoughts of suicide, and reiterates that she would never act on any thoughts, even related to occur. The patient remains future oriented and setting goals for herself. Patient's thought content is marked by frequent self depreciating thoughts. For example, the patient regularly makes statements such as "I guess that is a pretty dominant thing to do," "I guess I am just lazy." During her visit today , I was able to gently confront the patient about this. 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 02/05 - Ms. Ibrahim tells me today that she does not currently feel depressed, and is pleased to note that her mood has been "pretty good." I have observed her laughing with peers, and interacting in inappropriately jocular manner with several. Today, she caught herself that she was about to make a self depreciating statements, and thereby demonstrated that she is aware of this tendency. We discussed the fact that people "here" their own self depreciating statements and they can reinforce feelings of inadequacy and low self-esteem 02/06 - Continue Zoloft 125mg and group programming to address depressive symptoms. 02/07 and 02/08 - Zoloft increased on to 150mg qAM first dose 02/08/18. Discharge / Aftercare Planning Primary Care Physician: Name: Dr. Seay Appointment Notes: Appointment scheduled as needed Psychiatrist: Name: Dr. Bonifacio Green [facility] Date of Appointment: Mar 03, 2018 Time of Appointment: 8:45 Appointment Notes: [address] [facility] [address] [place] [address] Therapist: Name: Julio C Walker [facility] Date of Appointment: Feb 05, 2018 Time of Appointment: 11:00 am Appointment Notes: [address] [place] [place] [place] [address] Armature Repairer: Name: none Other: Name of Appointment #1: Dr. Bonifacio Green [facility] Date of Appointment #1: Mar 10, 2018 Time of Appointment #1: 1:00 p.m. Appointment #1 Notes: Follow up to initial intake with Dr. Valdovinos Visit Code E&M Code: 13126 Therapy Code: 08544 Behavioral therapy beginning resistance from washing, Inventory Assets Strengths: Help seeking, now willing to accept treatment, history of high functional baseline Needs: Acute medical intervention for severity of anxious symptomatology Risk Factors Assessment : Yes /single/: Yes Health problems: No Mental Health Diagnoses: Yes Substance use disorders: No Previous attempt: No Family history of suicide: No Previous psychiatric stay: Yes Hopelessness: Yes Smoker: No Protective Factors Assessment Sikh beliefs: Yes : No Responsible for young children: No Employed: No Supportive family: Yes Data Vital Signs Last 24 Hrs: Date Time Temp Pulse Resp B/P (MAP) Pulse Ox O2 Delivery O2 Flow Rate FiO2 02/08/18 06:35 36.7 76 18 97/64 79 101/67 Meds Administered Last 24 Hrs: Meds Administered (Past 24Hrs) Medications (Trade) Dose Ordered Sig/Yassine Route Start Time Stop Time Status Last Admin Dose Admin Sertraline HCl (Zoloft Tab) 150 mg QAM PO 02/08/18 09:00 03/06/18 08:59 02/08/18 08:12 150 MG
[2018-02-08] MEDS: hydrOXYzine HCL 25 MG TAB PO SCH (21:27)
[2018-02-08] MEDS: BIMATOPROST 0.01% OP SOLN 2.5 ML BTL OP SCH (21:28)
[2018-02-09 06:47] VITALS: BP_SYST 107; BP_SYST 114; BP_DIAS 69; BP_DIAS 74; PULSE 76; PULSE 77; TEMP 36.4
[2018-02-09] MEDS: SERTRALINE HCL 50 MG TAB PO SCH (08:40)
[2018-02-09] MEDS: MULTIVITAMIN TAB PO SCH (08:40)
[2018-02-09] MEDS: CHOLECALCIFEROL 1000 INTER.UNIT TAB PO SCH (08:40)
[2018-02-09] MEDS: RANITIDINE HCL 150 MG TAB PO SCH ×2 (08:40→21:23)
[2018-02-09] MEDS: RISPERIDONE 1 MG TAB PO SCH ×2 (08:40→21:22)
--- NOTE | 2018-02-09 13:12 | Psychiatric Progress Notes ---
Progress Note Date of Service Feb 09, 2018. Interval History Valentina Ibrahim is a 57-year-old female admitted on Feb 01, 2018 at 14:45 on a voluntary status. She is known to us from prior psychiatric hospitalization -12/30/17. During her recent psychiatric hospitalization she refused pharmacotherapy for treatment of OCD. She re-presents with worsening symptoms through the [facility] ER. Chief Complaint "I tried to do what you asked and I had a hard time resisting". Subjective Patient was seen & assessed interval progress reviewed with Treatment Team Nursing Per nursing she slept through the night, she is trying to resist. She spent more time walking laps to distract. Per patient she noted she was able to do "once and done" in the AM and resist washing sooner than every 15min in the early day but later in the day she found it hard to resist and even felt obsessional catastrophic worry about having contaminated a cup, held by staff and worried about him then infecting his family with the germ and bad outcomes. SHe is able to test this is irrational to a degree but also truly feels worried feeling that she cannot suppress. SHe continues to have some "feeling woozy, off" each day "I think it is the medication, but if it is going to help me I will tolerate it" She does not appear to have any somatic obsessions about her physical sensations. She denies other SE, and sleep was "not as restful because I was worried." She denies SI, HI, intention or plan. Denies obsessions of fear of harming others outside of contamination. Spent >17min in behavioral and cognitive therapy for OCD Reveiwed once and done, and 15min delay. She is agreeable to practicing again today. She is agreeable to our discussion about "even if.... she missed using soap....or a germ gets passed on" that the risk to herself or other is miniscule and probably actually helpful in building their immunity. Call to Time Aaron (outpatient therapist) after the visit we discussed he has some familiarity with the concept of habituation of distress through exposure but not formally trained in ERP. He noted early sessions with patient was to help her consider and accept medications. He is glad to know that she is taking medications. He is open to trying to help wtih exposure therapy, but is open to patient being referred to someone for formal ERP. He is open to concurrent therapy work with the patient or handing over care depending on the patient's wish at that time. Review of Systems She denies physical concerns other than those noted above. Sleep Information Total Hours of Sleep: 6.75 Meal Information Percent of Breakfast Consumed: 100 Percent of Lunch Consumed: 100 Percent of Dinner Consumed: 100 Mental Status Exam During interview pt is: alert and oriented, cooperative Appearance: appropriately dressed Eye contact is: good Motor behavior is: steady gait & station, no abnormal motor movements Speech: normal in rate, rhythm & volume Affect: mood congruent, anxious Mood is: anxious (about obsessions and ability to function at home) Thought process: goal directed Thought content: obsessions (concerned about contaminating others), compulsions (hand washing and prayer), guilt Suicidal thought are: denied Homicidal thoughts are: denied Hallucinations: denies auditory, denies visual Cognition: memory grossly intact, language grossly intact Intelligence estimated to be: above average Insight: fair Judgement: good Impression Pt states several times today of needing to wash her hands more than once. Pt was removed from group for interview and reported to this provider, "I didn't want to touch that thing they were throwing around, I couldn't remember if I had washed my hands, and didn't want to pass germs to anyone else." Pt continues to be able to challenge her thoughts during conversations, but finds it hard to sit with the thoughts. She states, "a new obsession will resolve the old one, but then I worry about that instead." Pt is agreeable to tracking hand washing behavior along with staff in order to determine baseline behavior and give objective means to monitor improvement. Pt is also agreeable to increasing sertraline to 150mg qAM. Pt requires ongoing mental health treatment at this time as she is likely to slip back into frequent and debilitating obsessions and compulsions if not treated adequately both medically and therapeutically. Pt has history of her OCD interfering with her functioning at home with causes her to be at risk of harm to self if not adequately improved at discharge. Plan (1) OCD (obsessive compulsive disorder) 02/01/18 - Patient's intrusive thoughts or choices behaviors are severe and incapacitating she is admitted on a voluntary status to the behavioral health unit and will be maintained on every 15 minute safety checks - She will be encouraged to participate in unit programming as appropriate - She will be trialed on Risperdal 0.25 mg by mouth every 4 hours when necessary for severe OCD symptoms. Risks and benefits as well as alternatives were reviewed which included discussion of potential metabolic side effects and tardive dyskinesia. Patient declined medication information handout - fasting labs and repeat TSH/FT4 in AM - Increase Zoloft to 75 mg daily tomorrow with plan to continue titration as indicated and tolerated - Will also make an Ativan 0.5 mg every 6 hours when necessary available temporarily for anxiety - Coordinate care with outpatient providers. She will need a psychiatric provider post discharge 02/02 - Already demonstrating improvement on low-dose Risperdal. We'll change schedule to 0.25 mg by mouth twice a day standing. May consider consolidating to at bedtime prior to discharge - will consider further Zoloft titration pending need and tolerability - Fasting labs and thyroid studies within normal limits 02/02/201802/03 - The patient continues to show some improvement in response to treatment. She has been able to eat 100% of her meals, and reports that she has been sleeping somewhat better. Today, we will increase her dose of sertraline from sertraline 75 mg daily to sertraline 100 mg daily. We will also increase her dose of risperidone from 0.25 mg twice a day to 0.5 mg twice a day. 02/04 -today, the patient tells me that she feels that she is improving, she is feeling less depressed and less anxious. She continues to be able to eat her meals and was able to sleep for approximately 7-1/2 hours last night with difficulty awakening this morning. The patient also indicates that she is tolerating her medications well and has noted no side effects. She also tells me that she realizes that they are helping, but she continues to have significant symptoms of OCD that are interfering with her activities of daily living. For example, she finds that she is compelled to say "silent prayer" each time she has an intrusive obsessive thought, and this happens with a frequency that it often breaks her concentration and, for example, interferes with her ability to attend to what people are saying to her. -The plan is to continue risperidone 0.5 mg twice a day. We will increase her dose of sertraline from 100 mg daily 225 mg daily, beginning in the morning. The patient has found a scheduled dose of hydroxyzine 50 mg at bedtime to be helpful because she does not ask for it, and if she takes it she sleeps through the night 02/05 - As noted, the patient continues to tell me that she has been less anxious and her mood has been "pretty good." However, last night, following a visit by the associate business continuity consultant of her mandaeism, she experienced an "uptake" in her OCD symptoms. I am continuing to teach her strategies for coping with OCD symptoms while, same time, adjusting her psychiatric medications in order to assist her by bringing these symptoms under better control. Today, she began sertraline 125 mg daily, and some of this for, continues to tolerate sertraline well without any noted side effects. I will increase her dose of risperidone to 1 mg twice a day, beginning with her evening dose today. I discussed this with the patient and she is in agreement. We also reviewed risks and anticipated benefits of risperidone. Also, I am encouraging her to be more socially active and to develop improved leisure skills. The patient tells me that she has noticed that that this year she has, and the more she has to occupy her mind, the less obsessive she tends to be, and I am hoping to work with that observation. 02/06 - Continue Zoloft 125mg daily, Risperdal increased to 1mg BID, will continue this dose for now to observe effect. - Encouraged discussion of her thoughts and compulsions with staff, continue with group programming. 02/07 - Zoloft increased to 150mg qAM. Continue Risperdal 1mg BID - Pt to report to nurses station with hand washing behavior in order to better determine improvement in compulsions with treatment 02/08 - continue meds as above with eventual plan to get to 200-300mg overtime ( likely contiuing titration as outpatient), discussed risperdal and holding at this dose given she is having some possible side effects. - goals for today are "once and done" with hand washing at each washing, and to delay washings for no sooner than 15min, to work on tasks of distraction and/ or activities of relaxation in between. Discussed goal to fight waiting at the sink for 15min but rather if she feels like going to the sink checking the time and resisting approaching. If she loses track of time that is a victory and she is to avoid scheduling hand washing for every 15min as well. SHe verbalizes understanding and states "I will try" Discussed the goal is the practice of resisting, not perfection. 02/09 - increase sertraline to 200mg 02/10/18 - reduce risperdal to 0.5mg AM and 1mg/hs to reduce "woozy, disconnected feeling" and monitor for worsening - revisit plan for "once and done" with hand washing, delay washings > 15min , and practicing combatting iwth "even if...." statements. SHe again notes she will try. Again reinforced goal is practicing not perfection (e.g. 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 She has continued to have periodic passive thoughts of suicide, without any plan or intent. She is future oriented, describes goals for her future, and indicates that she has never intentionally engaged in self-injurious behaviors. In the past, she has had intrusive thoughts of hanging herself, taking an overdose, or starving herself to - but tells me that she has never had any intent to act on these thoughts. 02/04 - The patient reports that her mood has gotten "better," and she says that she is quite aware that she is significantly less anxious than she had been in the recent past. She notes that she has had no further thoughts of suicide, and reiterates that she would never act on any thoughts, even related to occur. The patient remains future oriented and setting goals for herself. Patient's thought content is marked by frequent self depreciating thoughts. For example, the patient regularly makes statements such as "I guess that is a pretty dominant thing to do," "I guess I am just lazy." During her visit today , I was able to gently confront the patient about this. 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 02/05 - Ms. Ibrahim tells me today that she does not currently feel depressed, and is pleased to note that her mood has been "pretty good." I have observed her laughing with peers, and interacting in inappropriately jocular manner with several. Today, she caught herself that she was about to make a self depreciating statements, and thereby demonstrated that she is aware of this tendency. We discussed the fact that people "here" their own self depreciating statements and they can reinforce feelings of inadequacy and low self-esteem 02/06 - Continue Zoloft 125mg and group programming to address depressive symptoms. 02/07 and 02/08 - Zoloft increased on to 150mg qAM first dose 02/08/18. 02/09/18 - zoloft increase to 200mg, first dose 02/10/18 Discharge / Aftercare Planning Primary Care Physician: Name: Dr. Seay Appointment Notes: Appointment scheduled as needed Psychiatrist: Name: Dr. Bonifacio Green [facility] Date of Appointment: Mar 03, 2018 Time of Appointment: 8:45 Appointment Notes: [address] [address] Therapist: Name: Julio C Walker [facility] Date of Appointment: Feb 05, 2018 Time of Appointment: 11:00 am Appointment Notes: [address] [facility] [id number] Entry Level Programmer: Name: none Other: Name of Appointment #1: Dr. Bonifacio Green [facility] Date of Appointment #1: Mar 10, 2018 Time of Appointment #1: 1:00 p.m. Appointment #1 Notes: Follow up to initial intake with Dr. Valdovinos Visit Code E&M Code: 32561 Therapy Code: 89584 see above behavioral and cognitive therapy > 17minc Inventory Assets Strengths: Help seeking, now willing to accept treatment, history of high functional baseline Needs: Acute medical intervention for severity of anxious symptomatology Risk Factors Assessment : Yes /single/: Yes Health problems: No Mental Health Diagnoses: Yes Substance use disorders: No Previous attempt: No Family history of suicide: No Previous psychiatric stay: Yes Hopelessness: Yes Smoker: No Protective Factors Assessment Caodaism beliefs: Yes : No Responsible for young children: No Employed: No Supportive family: Yes Data Vital Signs Last 24 Hrs: Date Time Temp Pulse Resp B/P (MAP) Pulse Ox O2 Delivery O2 Flow Rate FiO2 02/09/18 06:47 36.4 76 18 107/69 77 114/74 Meds Administered Last 24 Hrs: Meds Administered (Past 24Hrs) Medications (Trade) Dose Ordered Sig/Yassine Route Start Time Stop Time Status Last Admin Dose Admin Sertraline HCl (Zoloft Tab) 150 mg QAM PO 02/08/18 09:00 03/06/18 08:59 02/09/18 08:40 150 MG
[2018-02-09] MEDS ORDERED: NURSING VERBAL MED ORDER ONE (20:30)
[2018-02-09] MEDS: hydrOXYzine HCL 25 MG TAB PO SCH (21:22)
[2018-02-09] MEDS: BIMATOPROST 0.01% OP SOLN 2.5 ML BTL OP SCH (21:22)
[2018-02-10 07:05] VITALS: BP_SYST 100; BP_SYST 98; BP_DIAS 61; BP_DIAS 63; PULSE 73; PULSE 77; TEMP 36.4
[2018-02-10] MEDS: RISPERIDONE 0.5 MG TAB PO SCH (08:42)
[2018-02-10] MEDS: MULTIVITAMIN TAB PO SCH (08:42)
[2018-02-10] MEDS: RANITIDINE HCL 150 MG TAB PO SCH ×2 (08:43→21:15)
[2018-02-10] MEDS: CHOLECALCIFEROL 1000 INTER.UNIT TAB PO SCH (08:43)
[2018-02-10] MEDS: SERTRALINE HCL 100 MG TAB PO SCH (08:44)
--- NOTE | 2018-02-10 13:07 | Medical Student: BHU Only ---
Psychiatric Progress Note Date of Service: Feb 10, 2018. SUBJECTIVE: Valentina Ibrahim is a 57 year old female with past medical history significant for OCD and mood disorder who was admitted to the [facility] on 02/01/18 on a 201 voluntary commitment for decreasing function and homicidal ideations secondary to OCD. She was previously admitted to the [facility] from 12/25-12/30/17 for similar symptoms where she refused pharmacotherapy. The patient was seen and assessed today, and progress was reviewed with nursing. Yesterday, staff reported that her obsessions with handwashing have increased. She asked several times for staff reassurance that she actually washed her hands. Today, on interview, Valentina admits to washing her hands quite frequently. She states that right as this interviewer walked in, she had to wash her hands several times. She tries to pour her soap on her hands in a pattern to remind herself that she did wash her hands. In addition, she continues to have intrusive thoughts where she fears contaminating others. She is less concerned of getting dirty herself but does not want to put her germs on others. For example, today her roommate left her shampoo in the shower and Valentina asked a nurse to remove it so she did not contaminate her roommate's belongings. She admits that showering was difficult for her, and she had to prevent herself from touching anything while getting in and out of the shower. She also had to shampoo her hair several times to assure herself she did so. In addition,she was able to wash her clothes but did have staff turn the machine on for her. In general, however, Valentina has noticed improvement since admission. She feels less anxious and does not have "racing thoughts." Previously, she would have had several intrusive thoughts during the interview but did not have any. She realizes that her OCD was debilitating prior to admission and now is able to function. She is tolerating her Zoloft and Risperdal. Risperdal was decreased to 0.5 mg in AM and 1 mg in PM over the weekend (previously 1 mg BID) to help with feeling foggy. Her "fogginess" and lightheadedness could also be related to dehydration as she feels lightheaded mainly when changing positions from sitting to standing quickly. She is eating all her meals in the day room. She was able to sleep 7 hours last night and attends all groups, finding them to be helpful. ROS: CONSTITUTIONAL: Denied HEENT: Eyes: Denied. Ears, Nose, Throat: Denied. SKIN: Denied. CARDIOVASCULAR: Denied. RESPIRATORY: Denied. GASTROINTESTINAL: Denied. GENITOURINARY: Denied. NEUROLOGICAL: Denied other than feeling lightheaded. MUSCULOSKELETAL: Denied. HEMATOLOGIC: Denied. LYMPHATICS: Denied. PSYCHIATRIC: Denied other than what is stated above. MEDICATIONS: Risperdal 0.5 mg in AM, 1 mg in PM Zoloft 200 mg qAM Vistaril 50 mg qPM for insomnia Vistaril 25 mg PRN for anxiety Ativan 0.5 mg q6h PRN for anxiety PHYSICAL EXAM: Medically cleared prior to admission Vitals: T 36.4, P 77, BP 100/63 MSE: Appearance is that of a casually dressed, anxious female who appears her stated age. The patient is generally cooperative with the interview. Eye contact is appropriate. Motor behavior is normal; no evidence of tardive dyskinesia, akathisia, or other abnormal movements. Speech: Normal volume, fast rate, normal tone. Affect: Mood congruent. Mood: Anxious. Thought process: Goal directed. Thought content: Endorses obsessions and compulsions related to cleanliness. Denies SI. Sometimes has "intrusive thoughts" which manifests as HI towards others and fear of contaminating others. Perception: Denies auditory and visual hallucinations; does endorse hypnagogic and hypnopompic illusions where she feels her mom is calling her before going to sleep or waking Cognition: Cognition appears normal. Intelligence is estimated to be above average. Insight is estimated to be appropriate. Judgment is estimated to be appropriate. LABS: Test 02/01/18 11:25 02/01/18 11:39 02/01/18 11:40 02/02/18 06:59 Urine Color YELLOW Urine Appearance CLEAR Urine pH 6.0 Urine Specific [place] 1.021 Urine Protein NEG Urine Glucose (UA) NEG Urine Ketones TRACE Urine Occult Blood NEG Urine Nitrite NEG Urine Bilirubin NEG Urine Urobilinogen NEG Urine Leukocyte Esterase NEG Sodium Level 139 Potassium Level 3.9 Chloride Level 104 Carbon Dioxide Level 29 Anion Gap 6.0 Blood Urea Nitrogen 17 Creatinine 0.95 Est Creatinine Clear Calc Drug Dose 59.7 Estimated GFR () 76.0 Estimated GFR (Non- 65.6 BUN/Creatinine Ratio 18.1 Random Glucose 100 Calcium Level 9.3 Total Bilirubin 0.6 Direct Bilirubin 0.1 Aspartate Amino Transferase (AST) 16 Alanine Aminotransferase (ALT) 25 Alkaline Phosphatase 76 Total Protein 7.5 Albumin 4.2 Salicylates Level < 1.7 Acetaminophen Level < 2 Ethyl Alcohol mg/dL < 3.0 White Blood Count 6.85 Red Blood Count 4.37 Hemoglobin 14.6 Hematocrit 42.2 Mean Corpuscular Volume 96.6 Mean Corpuscular Hemoglobin 33.4 Mean Corpuscular Hemoglobin Concent 34.6 Platelet Count 239 Mean Platelet Volume 9.4 Neutrophils (%) (Auto) 65.0 Lymphocytes (%) (Auto) 25.0 Monocytes (%) (Auto) 9.2 Eosinophils (%) (Auto) 0.3 Basophils (%) (Auto) 0.4 Neutrophils # (Auto) 4.45 Lymphocytes # (Auto) 1.71 Monocytes # (Auto) 0.63 Eosinophils # (Auto) 0.02 Basophils # (Auto) 0.03 RDW Standard Deviation 43.3 RDW Coefficient of Variation 12.3 Immature Granulocyte % (Auto) 0.1 Immature Granulocyte # (Auto) 0.01 Urine Opiates Screen NEG Urine Methadone, Qualitative NEG Urine Barbiturates NEG Urine Phencyclidine (PCP) Level NEG Ur Amphetamine/Methamphetamine NEG MDMA (Ecstasy) Screen NEG Urine Benzodiazepines Screen NEG Urine Cocaine Metabolite NEG Urine Marijuana (THC) NEG Fasting Glucose 77 Triglycerides Level 99 Cholesterol Level 131 HDL Cholesterol 52 LDL Cholesterol, Calculated 59 VLDL Cholesterol, Calculated 20 Cholesterol/HDL Ratio 2.5 Thyroid Stimulating Hormone (TSH) 3.190 Free Thyroxine 0.98 ASSESSMENT: Valentina Ibrahim is a 57 year old female with past medical history significant for OCD and depression who was admitted to the [facility] on 02/01/18 on a 201 voluntary commitment for decreasing function and homicidal ideations secondary to OCD. She was previously admitted to the [facility] from 12/25-12/30/17 for similar symptoms where she refused pharmacotherapy. Prior to this admission, she did start on a small dose of Zoloft prescribed by her GP. During this admission, she was started on risperidone and her dose of Zoloft was increased. Nursing staff has reported better behavior and mood since admission, which pharmacotherapy is likely contributing to. Her obsessions and compulsions were reported to have decreased in frequency last week but seems to have increased in last day. She continues to wash her hands frequently and reports intrusive thoughts where she fears contaminating others. She is tolerating her medications well. Risperdal dose was decreased over the weekend as patient was complaining of "fogginess" throughout the day. She does not feel foggy at this time, but sometimes has lightheadedness when changing positions from sitting to standing. Therefore, dehydration could also be the cause of her symptoms. PLAN: 1. OCD a. Encourage participation in group; q15 safety checks b. Risperidone increased from 0.25 mg BID to 0.5 mg BID on 02/03; Increased to 1 mg BID last week and then decreased to 0.5 mg in AM and 1 mg in PM on 02/08. Patient is tolerating medication well- not having anymore fogginess since Risperdal was decreased; she and staff noticed improvements in obsessions and compulsions last week but felt she has increased hand washing yesterday. Patient was also encouraged to drink plenty of fluids as dehydration could also be cause of lightheadedness/fogginess. c. Zoloft was increased to 125 mg on 02/05; increased to 200 mg in AM today ; patient is tolerating medication well d. TSH and fasting labs were normal when checked on 02/02. e. Continue Vistaril 50 mg qPM for insomnia. Patient is able to sleep through the night with scheduled dose. 2. Mood Disorder a. Zoloft was increased this morning. Patient has noticed improvement in mood and anxiety, although she continues to hand wash frequently. b. Continue Vistaril 25 mg PRN for anxiety. c. Continue Ativan 0.5 mg PRN q6h for anxiety. Discharge Planning: Patient will follow-up on outpatient basis with Dr. Valdovinos. She currently sees Faustino Walker for counseling who she would like to continue seeing. Valentina was also advised to start seeing Dr. Magan Garza for concurrent exposure and response prevention therapy which she agreed to this morning.
--- NOTE | 2018-02-10 14:48 | Psychiatric Progress Notes ---
Progress Note Date of Service Feb 10, 2018. Interval History Valentina Ibrahim is a 57-year-old female admitted on Feb 01, 2018 at 14:45 on a voluntary status. She is known to us from prior psychiatric hospitalization -12/30/17. During her recent psychiatric hospitalization she refused pharmacotherapy for treatment of OCD. She re-presents with worsening symptoms through the [facility] ER. Chief Complaint "I was just washing my hands because I was looking through the trash, I don't think I touched anything, but I'm not really sure". Subjective Patient was seen & assessed interval progress reviewed with Treatment Team. Staff reports the patient was recommended for Exposure Response Prevention therapy to further address her distressing symptoms of OCD. Pt agreeable to this over the weekend, but will need set up. Pt continues to wash hands frequently on the unit. States they have been limiting her by restricting hand washing during groups. Pt was seen today to assess progress since admission. Interview was requested during conversation with patient standing at the sink. Pt states she was just "looking through the trash" and states she was not sure if she touched anything, but was doubting her self. Pt then was agreeable to speaking in one of the offices. She states she is feeling good about her medication changes and is very please with Dr. Valdovinos, who will be following with her on an outpatient basis. She states she was encouraged to wait 15 minutes before washing her hands, which it's unclear if she's been following. She feels the medication changes have been helpful, as her sertraline was increased to 200mg and risperidone morning dose was decreased to 0.5mg with 1mg qHS. Pt is agreeable to ERP to further address her OCD symptoms. 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 We discussed this would be acceptable, but looking at discharge in the next few days. Pt denies SI/HI today, but is still struggling with her obsessions about contaminating other and constant hand washing. At end of appointment the patient asks if she can wash her hands. When challenged on this, she states, "I've felt I needed to the entire time we were in the office, and it's been longer than 15 minutes." Pt's request granted as these were parameters agreed upon, but encouraged to continue to challenge herself. Pt denies other needs or concerns at today's encounter. Review of Systems Psych: denies symptoms other than stated above Constitutional: denied Cardiovascular: denied GI: denied Neurologic: denied Remainder of 10 body systems also reviewed and denied other than noted above. Sleep Information Total Hours of Sleep: 7.25 Meal Information Percent of Breakfast Consumed: 100 Percent of Lunch Consumed: 100 Percent of Dinner Consumed: 100 Mental Status Exam During interview pt is: alert and oriented, cooperative Appearance: appropriately dressed, appropriately groomed Eye contact is: good Motor behavior is: steady gait & station, no abnormal motor movements Speech: normal in rate, rhythm & volume Affect: mood congruent, anxious Mood is: anxious (about contamination and "looking through trash") Thought process: goal directed Thought content: obsessions (concerned about contaminating others), compulsions (hand washing and prayer), guilt Suicidal thought are: denied Homicidal thoughts are: denied Hallucinations: denies auditory, denies visual Cognition: memory grossly intact, language grossly intact Intelligence estimated to be: above average Insight: fair Judgement: fair Impression Pt reports improvement in mood, but continues to participate in frequent hand washing behavior. Pt was challenged today and reminded of the recommendations given by Dr. Valdovinos: 15 minute wait time after urge, "wash and done", and practicing "even if..." processing. Pt continues to be distressed by her obsessions, and continues hand washing behavior. At this point, ERP recommended as patient would benefit from formal therapy targeting her obsessions and compulsions. Pt agreeable to this, but will need to find available provider. Pt currently taking sertraline 200mg daily and risperidone 0.5mg qAM and 1mg qPM. She feels satisfied with this regimen. Due to ongoing compulsions and risk of decompensation, concern exists about discharging patient too early and risking inability to function once returning home. Plan (1) OCD (obsessive compulsive disorder) 02/01/18 - Patient's intrusive thoughts or choices behaviors are severe and incapacitating she is admitted on a voluntary status to the behavioral health unit and will be maintained on every 15 minute safety checks - She will be encouraged to participate in unit programming as appropriate - She will be trialed on Risperdal 0.25 mg by mouth every 4 hours when necessary for severe OCD symptoms. Risks and benefits as well as alternatives were reviewed which included discussion of potential metabolic side effects and tardive dyskinesia. Patient declined medication information handout - fasting labs and repeat TSH/FT4 in AM - Increase Zoloft to 75 mg daily tomorrow with plan to continue titration as indicated and tolerated - Will also make an Ativan 0.5 mg every 6 hours when necessary available temporarily for anxiety - Coordinate care with outpatient providers. She will need a psychiatric provider post discharge 02/02 - Already demonstrating improvement on low-dose Risperdal. We'll change schedule to 0.25 mg by mouth twice a day standing. May consider consolidating to at bedtime prior to discharge - will consider further Zoloft titration pending need and tolerability - Fasting labs and thyroid studies within normal limits 02/02/201802/03 - The patient continues to show some improvement in response to treatment. She has been able to eat 100% of her meals, and reports that she has been sleeping somewhat better. Today, we will increase her dose of sertraline from sertraline 75 mg daily to sertraline 100 mg daily. We will also increase her dose of risperidone from 0.25 mg twice a day to 0.5 mg twice a day. 02/04 -today, the patient tells me that she feels that she is improving, she is feeling less depressed and less anxious. She continues to be able to eat her meals and was able to sleep for approximately 7-1/2 hours last night with difficulty awakening this morning. The patient also indicates that she is tolerating her medications well and has noted no side effects. She also tells me that she realizes that they are helping, but she continues to have significant symptoms of OCD that are interfering with her activities of daily living. For example, she finds that she is compelled to say "silent prayer" each time she has an intrusive obsessive thought, and this happens with a frequency that it often breaks her concentration and, for example, interferes with her ability to attend to what people are saying to her. -The plan is to continue risperidone 0.5 mg twice a day. We will increase her dose of sertraline from 100 mg daily 225 mg daily, beginning in the morning. The patient has found a scheduled dose of hydroxyzine 50 mg at bedtime to be helpful because she does not ask for it, and if she takes it she sleeps through the night 02/05 - As noted, the patient continues to tell me that she has been less anxious and her mood has been "pretty good." However, last night, following a visit by the associate woven wood shade assembler of her synagogue, she experienced an "uptake" in her OCD symptoms. I am continuing to teach her strategies for coping with OCD symptoms while, same time, adjusting her psychiatric medications in order to assist her by bringing these symptoms under better control. Today, she began sertraline 125 mg daily, and some of this for, continues to tolerate sertraline well without any noted side effects. I will increase her dose of risperidone to 1 mg twice a day, beginning with her evening dose today. I discussed this with the patient and she is in agreement. We also reviewed risks and anticipated benefits of risperidone. Also, I am encouraging her to be more socially active and to develop improved leisure skills. The patient tells me that she has noticed that that this year she has, and the more she has to occupy her mind, the less obsessive she tends to be, and I am hoping to work with that observation. 02/06 - Continue Zoloft 125mg daily, Risperdal increased to 1mg BID, will continue this dose for now to observe effect. - Encouraged discussion of her thoughts and compulsions with staff, continue with group programming. 02/07 - Zoloft increased to 150mg qAM. Continue Risperdal 1mg BID - Pt to report to nurses station with hand washing behavior in order to better determine improvement in compulsions with treatment 02/08 - continue meds as above with eventual plan to get to 200-300mg overtime ( likely contiuing titration as outpatient), discussed risperdal and holding at this dose given she is having some possible side effects. - goals for today are "once and done" with hand washing at each washing, and to delay washings for no sooner than 15min, to work on tasks of distraction and/ or activities of relaxation in between. Discussed goal to fight waiting at the sink for 15min but rather if she feels like going to the sink checking the time and resisting approaching. If she loses track of time that is a victory and she is to avoid scheduling hand washing for every 15min as well. SHe verbalizes understanding and states "I will try" Discussed the goal is the practice of resisting, not perfection. 02/09 - increase sertraline to 200mg 02/10/18 - reduce risperdal to 0.5mg AM and 1mg/hs to reduce "woozy, disconnected feeling" and monitor for worsening - revisit plan for "once and done" with hand washing, delay washings > 15min , and practicing combatting iwth "even if...." statements. SHe again notes she will try. Again reinforced goal is practicing not perfection (e.g. used analogy of lifting weights overtime to build strength) - encourage patient to consider concurrent care with ERP provider to assist in formal behavioral plan, she is ambivalent to seeing anyone who is not overtly Voodoo 02/10 - Continue sertraline 200mg and risperidone 0.5mg qAM and 1mg qHS. - continue to challenge on parameters outlined by Dr. Valdovinos above: 15ming restraining, "once and done", and "even if..." statements. - Willing for ERP, will need to clarify provider availability. 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 She has continued to have periodic passive thoughts of suicide, without any plan or intent. She is future oriented, describes goals for her future, and indicates that she has never intentionally engaged in self-injurious behaviors. In the past, she has had intrusive thoughts of hanging herself, taking an overdose, or starving herself to - but tells me that she has never had any intent to act on these thoughts. 02/04 - The patient reports that her mood has gotten "better," and she says that she is quite aware that she is significantly less anxious than she had been in the recent past. She notes that she has had no further thoughts of suicide, and reiterates that she would never act on any thoughts, even related to occur. The patient remains future oriented and setting goals for herself. Patient's thought content is marked by frequent self depreciating thoughts. For example, the patient regularly makes statements such as "I guess that is a pretty dominant thing to do," "I guess I am just lazy." During her visit today , I was able to gently confront the patient about this. 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 02/05 - Ms. Ibrahim tells me today that she does not currently feel depressed, and is pleased to note that her mood has been "pretty good." I have observed her laughing with peers, and interacting in inappropriately jocular manner with several. Today, she caught herself that she was about to make a self depreciating statements, and thereby demonstrated that she is aware of this tendency. We discussed the fact that people "here" their own self depreciating statements and they can reinforce feelings of inadequacy and low self-esteem 02/06 - Continue Zoloft 125mg and group programming to address depressive symptoms. 02/07 and 02/08 - Zoloft increased on to 150mg qAM first dose 02/08/18. 02/09/18 - zoloft increase to 200mg, first dose 02/10/18 Discharge / Aftercare Planning Primary Care Physician: Name: Dr. Seay Appointment Notes: Appointment scheduled as needed Psychiatrist: Name: Dr. Bonifacio Green [facility] Date of Appointment: Mar 03, 2018 Time of Appointment: 8:45 Appointment Notes: [address] [facility] [address] [place] [address] Therapist: Name: Julio C Walker [facility] Date of Appointment: Feb 05, 2018 Time of Appointment: 11:00 am Appointment Notes: [address] [facility] [place] [address] Director Microbiology: Name: none Other: Name of Appointment #1: Dr. Bonifacio Green [facility] Date of Appointment #1: Mar 10, 2018 Time of Appointment #1: 1:00 p.m. Appointment #1 Notes: Follow up to initial intake with Dr. Valdovinos Visit Code E&M Code: 84746 Inventory Assets Strengths: Help seeking, now willing to accept treatment, history of high functional baseline Needs: Acute medical intervention for severity of anxious symptomatology Risk Factors Assessment : Yes /single/: Yes Health problems: No Mental Health Diagnoses: Yes Substance use disorders: No Previous attempt: No Family history of suicide: No Previous psychiatric stay: Yes Hopelessness: Yes Smoker: No Protective Factors Assessment Roman Catholic beliefs: Yes : No Responsible for young children: No Employed: No Supportive family: Yes Data Vital Signs Last 24 Hrs: Date Time Temp Pulse Resp B/P (MAP) Pulse Ox O2 Delivery O2 Flow Rate FiO2 02/10/18 07:05 36.4 73 16 98/61 77 100/63 Meds Administered Last 24 Hrs: Meds Administered (Past 24Hrs) Medications (Trade) Dose Ordered Sig/Yassine Route Start Time Stop Time Status Last Admin Dose Admin Risperidone (Risperdal Tab) 0.5 mg QAM PO 02/10/18 09:00 03/12/18 08:59 02/10/18 08:42 0.5 MG Risperidone (Risperdal Tab) 1 mg HS PO 02/09/18 22:00 03/11/18 21:59 02/09/18 21:22 1 MG Sertraline HCl (Zoloft Tab) 200 mg QAM PO 02/10/18 09:00 03/12/18 08:59 02/10/18 08:44 200 MG
[2018-02-10] MEDS: BIMATOPROST 0.01% OP SOLN 2.5 ML BTL OP SCH (21:14)
[2018-02-10] MEDS: RISPERIDONE 1 MG TAB PO SCH (21:14)
[2018-02-10] MEDS: hydrOXYzine HCL 25 MG TAB PO SCH (21:18)
[2018-02-11 07:03] VITALS: BP 107/68; PULSE 71; PULSE 80; TEMP 36.5
[2018-02-11] MEDS ORDERED: hydrOXYzine HCL 25 MG TAB PO PRN (08:45)
[2018-02-11] MEDS: CHOLECALCIFEROL 1000 INTER.UNIT TAB PO SCH (09:05)
[2018-02-11] MEDS: RANITIDINE HCL 150 MG TAB PO SCH ×2 (09:05→21:39)
[2018-02-11] MEDS: MULTIVITAMIN TAB PO SCH (09:05)
[2018-02-11] MEDS: RISPERIDONE 0.5 MG TAB PO SCH (09:05)
[2018-02-11] MEDS: SERTRALINE HCL 100 MG TAB PO SCH (09:06)
--- NOTE | 2018-02-11 10:08 | Medical Student: BHU Only ---
Psychiatric Progress Note Date of Service: Feb 11, 2018. SUBJECTIVE: Valentina Ibrahim is a 57 year old female with past medical history significant for OCD and mood disorder who was admitted to the [facility] on 02/01/18 on a 201 voluntary commitment for decreasing function and homicidal ideations secondary to OCD. She was previously admitted to the [facility] from 12/25-12/30/17 for similar symptoms where she refused pharmacotherapy. The patient was seen and assessed today, and progress was reviewed with nursing. Over the weekend, staff reported that her obsessions with handwashing have increased. She asked several times for staff reassurance that she actually washed her hands. Yesterday, Valentina admits to this and continues to have intrusive thoughts where she fears contaminating others. Staff reported that she washed her hands with soap up her arms even onto her clothes, which they had never seen before. Another patient put their dirty laundry on the washing machine while her clothes were drying which was triggering for her. Prior to this interviewer entering the room today , she used the restroom and feared she got some urine or feces on her hand and washed her hands several times both in her bedroom and again in the kitchen. She thinks that the fact that staff members are recording her hand washing may be what is contributing to her anxiety. She asked for reassurance numerous times from this interviewer and required redirection. She reports that she often requires reassurance from others and is hoping to one day be able to provide that reassurance herself. For example, last night, she saw rojas outside her window and doubted whether she actually saw it. It was not until she heard staff report that there was a power outage that she believed what she saw. Valentina does agree that she has improved since admission. At that time, her OCD symptoms were debilitating for her. She is anxious to be discharged as she does not want to get to that point again. She was reminded of her progress since being on the unit and the support already in place for her after discharge (Dr. Valdovinos, Faustino Walker, Dr. Anders) which will help her success. She felt better once talking through this. She rated her mood as 8/10 today. She is tolerating her Zoloft and Risperdal. Risperdal was decreased to 0.5 mg in AM and 1 mg in PM over the weekend (previously 1 mg BID) to help with feeling foggy. Her "fogginess" and lightheadedness could also be related to dehydration as she feels lightheaded mainly when changing positions from sitting to standing quickly. She ate dinner in her room last night. She was able to sleep 7.75 hours last night but refused her Vistaril as she feels it makes her mucus membranes dry. Valentina has been attending groups as well, finding them to be helpful. ROS: CONSTITUTIONAL: Denied HEENT: Eyes: Denied. Ears, Nose, Throat: Denied. SKIN: Denied. CARDIOVASCULAR: Denied. RESPIRATORY: Denied. GASTROINTESTINAL: Denied. GENITOURINARY: Denied. NEUROLOGICAL: Denied. MUSCULOSKELETAL: Denied. HEMATOLOGIC: Denied. LYMPHATICS: Denied. PSYCHIATRIC: Denied other than what is stated above. MEDICATIONS: Risperdal 0.5 mg in AM, 1 mg in PM Zoloft 200 mg qAM Vistaril 50 mg qPM for insomnia Vistaril 25 mg PRN for anxiety Ativan 0.5 mg q6h PRN for anxiety PHYSICAL EXAM: Medically cleared prior to admission Vitals: T 36.5, P 80, BP 107/68, RR 16 MSE: Appearance is that of a casually dressed, anxious female who appears her stated age. The patient is generally cooperative with the interview. Eye contact is appropriate. Motor behavior is normal; no evidence of tardive dyskinesia, akathisia, or other abnormal movements. Speech: Normal volume, fast rate, normal tone. Affect: Mood congruent. Mood: Anxious. Thought process: Goal directed. Thought content: Endorses obsessions and compulsions related to cleanliness. Denies SI. Sometimes has "intrusive thoughts" which manifests as HI towards others and fear of contaminating others. Perception: Denies auditory and visual hallucinations; does endorse hypnagogic and hypnopompic illusions where she feels her mom is calling her before going to sleep or waking Cognition: Cognition appears normal. Intelligence is estimated to be above average. Insight is estimated to be appropriate. Judgment is estimated to be appropriate. LABS: Test 02/01/18 11:25 02/01/18 11:39 02/01/18 11:40 02/02/18 06:59 Urine Color YELLOW Urine Appearance CLEAR Urine pH 6.0 Urine Specific [place] 1.021 Urine Protein NEG Urine Glucose (UA) NEG Urine Ketones TRACE Urine Occult Blood NEG Urine Nitrite NEG Urine Bilirubin NEG Urine Urobilinogen NEG Urine Leukocyte Esterase NEG Sodium Level 139 Potassium Level 3.9 Chloride Level 104 Carbon Dioxide Level 29 Anion Gap 6.0 Blood Urea Nitrogen 17 Creatinine 0.95 Est Creatinine Clear Calc Drug Dose 59.7 Estimated GFR () 76.0 Estimated GFR (Non- 65.6 BUN/Creatinine Ratio 18.1 Random Glucose 100 Calcium Level 9.3 Total Bilirubin 0.6 Direct Bilirubin 0.1 Aspartate Amino Transferase (AST) 16 Alanine Aminotransferase (ALT) 25 Alkaline Phosphatase 76 Total Protein 7.5 Albumin 4.2 Salicylates Level < 1.7 Acetaminophen Level < 2 Ethyl Alcohol mg/dL < 3.0 White Blood Count 6.85 Red Blood Count 4.37 Hemoglobin 14.6 Hematocrit 42.2 Mean Corpuscular Volume 96.6 Mean Corpuscular Hemoglobin 33.4 Mean Corpuscular Hemoglobin Concent 34.6 Platelet Count 239 Mean Platelet Volume 9.4 Neutrophils (%) (Auto) 65.0 Lymphocytes (%) (Auto) 25.0 Monocytes (%) (Auto) 9.2 Eosinophils (%) (Auto) 0.3 Basophils (%) (Auto) 0.4 Neutrophils # (Auto) 4.45 Lymphocytes # (Auto) 1.71 Monocytes # (Auto) 0.63 Eosinophils # (Auto) 0.02 Basophils # (Auto) 0.03 RDW Standard Deviation 43.3 RDW Coefficient of Variation 12.3 Immature Granulocyte % (Auto) 0.1 Immature Granulocyte # (Auto) 0.01 Urine Opiates Screen NEG Urine Methadone, Qualitative NEG Urine Barbiturates NEG Urine Phencyclidine (PCP) Level NEG Ur Amphetamine/Methamphetamine NEG MDMA (Ecstasy) Screen NEG Urine Benzodiazepines Screen NEG Urine Cocaine Metabolite NEG Urine Marijuana (THC) NEG Fasting Glucose 77 Triglycerides Level 99 Cholesterol Level 131 HDL Cholesterol 52 LDL Cholesterol, Calculated 59 VLDL Cholesterol, Calculated 20 Cholesterol/HDL Ratio 2.5 Thyroid Stimulating Hormone (TSH) 3.190 Free Thyroxine 0.98 ASSESSMENT: Valentina Ibrahim is a 57 year old female with past medical history significant for OCD and depression who was admitted to the [facility] on 02/01/18 on a 201 voluntary commitment for decreasing function and homicidal ideations secondary to OCD. She was previously admitted to the [facility] from 12/25-12/30/17 for similar symptoms where she refused pharmacotherapy. Prior to this admission, she did start on a small dose of Zoloft prescribed by her GP. During this admission, she was started on risperidone and her dose of Zoloft was increased. Nursing staff has reported better behavior and mood since admission, which pharmacotherapy is likely contributing to. Her obsessions and compulsions were reported to have decreased in frequency last week but seems to have increased since the weekend. Staff fear that the idea to document her hand washing is what triggered this increase, which patient agrees to. She continues to wash her hands frequently and reports intrusive thoughts where she fears contaminating others. She is tolerating her medications well. Risperdal dose was decreased over the weekend as patient was complaining of "fogginess" throughout the day. She does not feel foggy at this time, but sometimes has lightheadedness when changing positions from sitting to standing. Therefore, dehydration could also be the cause of her symptoms. PLAN: 1. OCD a. Encourage participation in group; q15 safety checks b. Risperidone increased from 0.25 mg BID to 0.5 mg BID on 02/03; Increased to 1 mg BID last week and then decreased to 0.5 mg in AM and 1 mg in PM on 02/08. Patient is tolerating medication well- not having anymore fogginess since Risperdal was decreased; she and staff noticed improvements in obsessions and compulsions last week but felt she has increased hand washing and obsessions since the weekend. Patient was also encouraged to drink plenty of fluids as dehydration could also be cause of lightheadedness/fogginess. c. Zoloft was increased to 125 mg on 02/05; increased to 200 mg in AM on 02/10 ; patient is tolerating medication well d. TSH and fasting labs were normal when checked on 02/02. e. Continue Vistaril 50 mg qPM for insomnia. 2. Mood Disorder a. Zoloft was increased yesterday. Patient is becoming somewhat anxious again and obsessions/compulsions have increased; continue Zoloft. b. Continue Vistaril 25 mg PRN for anxiety. c. Continue Ativan 0.5 mg PRN q6h for anxiety. Discharge Planning: Patient will follow-up on outpatient basis with Dr. Valdovinos. She currently sees Faustino Walker for counseling who she would like to continue seeing. Valentina was also advised to start seeing Dr. Magan Anders for concurrent exposure and response prevention therapy which she agreed to. She has an appointment to see Dr. Anders on 02/12 at 10 AM pending discharge. Last date of covered stay by insurance is today. Discharge will likely be tomorrow morning.
--- NOTE | 2018-02-11 10:33 | Psychiatric Progress Notes ---
Progress Note Date of Service Feb 11, 2018. Interval History Valentina Ibrahim is a 57-year-old female admitted on Feb 01, 2018 at 14:45 on a voluntary status. She is known to us from prior psychiatric hospitalization -12/30/17. During her recent psychiatric hospitalization she refused pharmacotherapy for treatment of OCD. She re-presents with worsening symptoms through the [facility] ER. Chief Complaint "Well I thought I was getting better with the intrusive thoughts, but the doubting thing is really getting me". Subjective Patient was seen & assessed interval progress reviewed with Nursing. Staff report she continues to wash her hands excessively and has decompensated over the past few days. She was up early this morning walking laps around the unit. On my assessment, she states she is obsessing over her hand washing, "doubting myself, if I used the soap," or if she touched something, that would mean she has to wash her hands. She describes this as "self doubt," and gives further examples of finding an empty food product in her fridge, and not being sure if she had opened it or it was opened when she bought it, which would mean it was contaminated or someone tampered with it. She then started writing the dates on food containers to show that she had opened them. She says she was hopeful that the medications would "correct that." She continues to obsess over contaminating things, more for other people than for me," giving an example of thinking that she "made a light switch dirty by touching it with a paper towel that I dried my hands on, and I had to let her know that, just felt i need to say that." She is able to say that other people "probably" would not be upset that she touched a light switch with a paper towel she used to dry her hands, but "I still felt the need to tell them." She continues to wash her hands numerous times daily, too many times to count. She felt she had to wash her hands several times before going to bed last night, "it takes 2 or 3 times before I'm truly convinced." She admits "it's excessive," but skin on hands is improved from admission, less dry/peeling/cuts. She refuses hand cream, stating she "will question if it's hand cream, and then I'd have greasy hands, and couldn't touch anything, and if I used gloves, I'd start questioning if those gloves are really clean, or did I pull them out of the trash can?" She also talks about intrusive thoughts that she is "harming somebody, it's not intent in any way, it's just this game that goes on in my mind, but I confess my thoughts to the Lord." She reports these thoughts continue daily, and are distressing, but have decreased in intensity since admission. She gives an example of thinking "if I don't cross this street or pass this sign, I'll have to hurt somebody." She describes trying to "neutralize these thoughts with prayer, that's sufficient for me." She denies any plan or intent to harm anyone else, and denies SI. She has had thoughts in the past that if she "just felt so , so bad, I'd just stop eating, but I've never done that, and I'd never have the nerve to kill myself." She states the thought of or suicide scares her , is against her restorationist beliefs, and is not something she would ever do. She is hoping she doesn't have to stay on the risperidone shelter, but states she understands she may have to stay on an antidepressant "forever." She is very anxious about returning home, as she fears that the improvements she has noted here will disappear when she returns home and is faced with her stressors and triggers. She specifically cites "cleanliness issues" and "superstitions," which she describes as a belief she developed just prior to admission that because there were spots on her remote control, this meant that she would have to harm her aunt. She describes repeatedly checking the remote control to see if the spots were still there, fearfulness, and an inability to dismiss her thoughts of harming her and. This was very distressing to her, and she fears that these thoughts will return. She is not sure how she would handle this if she were to go home now, stating that she would try to not look at the remote, but is not sure that she could resist. She does not feel ready for discharge, and when asked to talk about ways she can structure her time in the days after she returns home, she responds with a long to do list (catch up on male, pay bills, organize taxes, go through emails, unpack and organize her house -things are still in boxes although she moved there 8 years ago, get rid of old financial records, etc.). She does plan to try to get back to going to orthodoxy on Sundays, weekly Bible study on Wednesdays, and meeting with her orthodoxy small group twice a month. Eventually she would like to get back into activities with her 55+ active lifestyle group, but does not feel ready to do that yet. Sleep Information Total Hours of Sleep: 7.75 Meal Information Percent of Breakfast Consumed: 100 Percent of Lunch Consumed: 100 Percent of Dinner Consumed: 100 Mental Status Exam During interview pt is: alert and oriented, cooperative Appearance: appropriately dressed, appropriately groomed Eye contact is: good Motor behavior is: steady gait & station, no abnormal motor movements Speech: normal in rate, rhythm & volume Affect: mood congruent, anxious (Distressed) Mood is: anxious (about obsessive, intrusive thoughts) Thought process: goal directed, perseveration (on cleaniness) Thought content: obsessions (that she will have to hurt someone), cognitive distortions (Thinks that she needs to ensure cleanliness of the environment for others), compulsions (hand washing and prayer), guilt Suicidal thought are: denied Homicidal thoughts are: present (intrusive thoughts that she will have to hurt someone if certain things happen, no specific person, plan or intent) Hallucinations: denies auditory, denies visual Cognition: memory grossly intact, language grossly intact Intelligence estimated to be: above average Insight: fair Judgement: fair Medication Trials sertraline - started by PCP 01/2018 Impression Although there has been a slight improvement in mood and severity of intrusive thoughts, the patient continues to be anxious, obsessive, and frequently engages in compulsive behavior, predominantly handwashing. She has not been able to follow the recommendations to wait 15 minutes after urge, "wash and done ", and practicing "even if..." processing. Furthermore, she is very concerned about her intrusive thoughts that she would have to harm others, as these are quite distressing to her, and although they are improved, continue to occur. She is distressed by her symptoms, and does not feel ready to return home, and agree that further inpatient treatment is indicated. She has been referred for exposure and response prevention therapy targeting her obsessions and compulsions, but is not stable enough yet to be able to participate in this type of treatment. SSRI has been increased, and she does not wish to increase the risperidone further due to side effects. Concern exists about discharging patient too early and risking inability to function once returning home, and due to the high risk of decompensation if discharged prematurely, recommend continued inpatient treatment. Plan (1) OCD (obsessive compulsive disorder) 02/01/18 - Patient's intrusive thoughts or choices behaviors are severe and incapacitating she is admitted on a voluntary status to the behavioral health unit and will be maintained on every 15 minute safety checks - She will be encouraged to participate in unit programming as appropriate - She will be trialed on Risperdal 0.25 mg by mouth every 4 hours when necessary for severe OCD symptoms. Risks and benefits as well as alternatives were reviewed which included discussion of potential metabolic side effects and tardive dyskinesia. Patient declined medication information handout - fasting labs and repeat TSH/FT4 in AM - Increase Zoloft to 75 mg daily tomorrow with plan to continue titration as indicated and tolerated - Will also make an Ativan 0.5 mg every 6 hours when necessary available temporarily for anxiety - Coordinate care with outpatient providers. She will need a psychiatric provider post discharge 02/02 - Already demonstrating improvement on low-dose Risperdal. We'll change schedule to 0.25 mg by mouth twice a day standing. May consider consolidating to at bedtime prior to discharge - will consider further Zoloft titration pending need and tolerability - Fasting labs and thyroid studies within normal limits 02/02/201802/03 - The patient continues to show some improvement in response to treatment. She has been able to eat 100% of her meals, and reports that she has been sleeping somewhat better. Today, we will increase her dose of sertraline from sertraline 75 mg daily to sertraline 100 mg daily. We will also increase her dose of risperidone from 0.25 mg twice a day to 0.5 mg twice a day. 02/04 -today, the patient tells me that she feels that she is improving, she is feeling less depressed and less anxious. She continues to be able to eat her meals and was able to sleep for approximately 7-1/2 hours last night with difficulty awakening this morning. The patient also indicates that she is tolerating her medications well and has noted no side effects. She also tells me that she realizes that they are helping, but she continues to have significant symptoms of OCD that are interfering with her activities of daily living. For example, she finds that she is compelled to say "silent prayer" each time she has an intrusive obsessive thought, and this happens with a frequency that it often breaks her concentration and, for example, interferes with her ability to attend to what people are saying to her. -The plan is to continue risperidone 0.5 mg twice a day. We will increase her dose of sertraline from 100 mg daily 225 mg daily, beginning in the morning. The patient has found a scheduled dose of hydroxyzine 50 mg at bedtime to be helpful because she does not ask for it, and if she takes it she sleeps through the night 02/05 - As noted, the patient continues to tell me that she has been less anxious and her mood has been "pretty good." However, last night, following a visit by the associate offset lithographic press operator of her orthodoxy, she experienced an "uptake" in her OCD symptoms. I am continuing to teach her strategies for coping with OCD symptoms while, same time, adjusting her psychiatric medications in order to assist her by bringing these symptoms under better control. Today, she began sertraline 125 mg daily, and some of this for, continues to tolerate sertraline well without any noted side effects. I will increase her dose of risperidone to 1 mg twice a day, beginning with her evening dose today. I discussed this with the patient and she is in agreement. We also reviewed risks and anticipated benefits of risperidone. Also, I am encouraging her to be more socially active and to develop improved leisure skills. The patient tells me that she has noticed that that this year she has, and the more she has to occupy her mind, the less obsessive she tends to be, and I am hoping to work with that observation. 02/06 - Continue Zoloft 125mg daily, Risperdal increased to 1mg BID, will continue this dose for now to observe effect. - Encouraged discussion of her thoughts and compulsions with staff, continue with group programming. 02/07 - Zoloft increased to 150mg qAM. Continue Risperdal 1mg BID - Pt to report to nurses station with hand washing behavior in order to better determine improvement in compulsions with treatment 02/08 - continue meds as above with eventual plan to get to 200-300mg overtime ( likely continuing titration as outpatient), discussed risperdal and holding at this dose given she is having some possible side effects. - goals for today are "once and done" with hand washing at each washing, and to delay washings for no sooner than 15min, to work on tasks of distraction and/ or activities of relaxation in between. Discussed goal to fight waiting at the sink for 15min but rather if she feels like going to the sink checking the time and resisting approaching. If she loses track of time that is a victory and she is to avoid scheduling hand washing for every 15min as well. She verbalizes understanding and states "I will try" Discussed the goal is the practice of resisting, not perfection. 02/09 - increase sertraline to 200mg 02/10/18 - reduce risperdal to 0.5mg AM and 1mg/hs to reduce "woozy, disconnected feeling" and monitor for worsening - revisit plan for "once and done" with hand washing, delay washings > 15min , and practicing combatting iwth "even if...." statements. SHe again notes she will try. Again reinforced goal is practicing not perfection (e.g. used analogy of lifting weights overtime to build strength) - encourage patient to consider concurrent care with ERP provider to assist in formal behavioral plan, she is ambivalent to seeing anyone who is not overtly Congregation 02/10 - Continue sertraline 200mg and risperidone 0.5mg qAM and 1mg qHS. - continue to challenge on parameters outlined by Dr. Valdovinos above: 15ming restraining, "once and done", and "even if..." statements. - Willing for ERP, will need to clarify provider availability. 02/11 - Continue current meds. - Referred to Dr. Anders - Wednesdays 10am. - Working on discharge planning - patient worried that she will decompensate w/ returning home, so work on plans for increased supports, structure her days, safety plan. 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 She has continued to have periodic passive thoughts of suicide, without any plan or intent. She is future oriented, describes goals for her future, and indicates that she has never intentionally engaged in self-injurious behaviors. In the past, she has had intrusive thoughts of hanging herself, taking an overdose, or starving herself to - but tells me that she has never had any intent to act on these thoughts. 02/04 - The patient reports that her mood has gotten "better," and she says that she is quite aware that she is significantly less anxious than she had been in the recent past. She notes that she has had no further thoughts of suicide, and reiterates that she would never act on any thoughts, even related to occur. The patient remains future oriented and setting goals for herself. Patient's thought content is marked by frequent self depreciating thoughts. For example, the patient regularly makes statements such as "I guess that is a pretty dominant thing to do," "I guess I am just lazy." During her visit today , I was able to gently confront the patient about this. 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 02/05 - Ms. Ibrahim tells me today that she does not currently feel depressed, and is pleased to note that her mood has been "pretty good." I have observed her laughing with peers, and interacting in inappropriately jocular manner with several. Today, she caught herself that she was about to make a self depreciating statements, and thereby demonstrated that she is aware of this tendency. We discussed the fact that people "here" their own self depreciating statements and they can reinforce feelings of inadequacy and low self-esteem 02/06 - Continue Zoloft 125mg and group programming to address depressive symptoms. 02/07 and 02/08 - Zoloft increased on to 150mg qAM first dose 02/08/18. 02/09/18 - zoloft increase to 200mg, first dose 02/10/18 Discharge / Aftercare Planning Primary Care Physician: Name: Dr. Seay Appointment Notes: Appointment scheduled as needed Psychiatrist: Name: Dr. Bonifacio Green [facility] Date of Appointment: Mar 03, 2018 Time of Appointment: 8:45 Appointment Notes: [address] [facility] [address] [place] [address] Therapist: Name: Julio C Walker [facility] Date of Appointment: Feb 05, 2018 Time of Appointment: 11:00 am Appointment Notes: [address] [facility] [place] [address] [employer] Lac[employer] Mixer: Name: none Other: Name of Appointment #1: Dr. Bonifacio Green [facility] Date of Appointment #1: Mar 10, 2018 Time of Appointment #1: 1:00 p.m. Appointment #1 Notes: Follow up to initial intake with Dr. Valdovinos Visit Code E&M Code: 99363 Inventory Assets Strengths: Help seeking, now willing to accept treatment, history of high functional baseline Needs: Acute medical intervention for severity of anxious symptomatology Risk Factors Assessment : Yes /single/: Yes Health problems: No Mental Health Diagnoses: Yes Substance use disorders: No Previous attempt: No Family history of suicide: No Previous psychiatric stay: Yes Hopelessness: Yes Smoker: No Protective Factors Assessment Jehovah'S Witness beliefs: Yes : No Responsible for young children: No Employed: No Supportive family: Yes Data Vital Signs Last 24 Hrs: Date Time Temp Pulse Resp B/P (MAP) Pulse Ox O2 Delivery O2 Flow Rate FiO2 02/11/18 07:03 36.5 71 16 107/68 80 107/68 Meds Administered Last 24 Hrs: Meds Administered (Past 24Hrs) Medications (Trade) Dose Ordered Sig/Yassine Route Start Time Stop Time Status Last Admin Dose Admin Risperidone (Risperdal Tab) 0.5 mg QAM PO 02/10/18 09:00 03/12/18 08:59 02/11/18 09:05 0.5 MG Risperidone (Risperdal Tab) 1 mg HS PO 02/09/18 22:00 03/11/18 21:59 02/10/18 21:14 1 MG Sertraline HCl (Zoloft Tab) 200 mg QAM PO 02/10/18 09:00 03/12/18 08:59 02/11/18 09:06 200 MG
[2018-02-11] MEDS: RISPERIDONE 1 MG TAB PO SCH (21:38)
[2018-02-11] MEDS: BIMATOPROST 0.01% OP SOLN 2.5 ML BTL OP SCH (21:38)
[2018-02-12 06:59] VITALS: BP_SYST 100; BP_SYST 104; BP_DIAS 62; BP_DIAS 66; PULSE 73; PULSE 76; TEMP 36.8
[2018-02-12] MEDS: MULTIVITAMIN TAB PO SCH (08:46)
[2018-02-12] MEDS: RISPERIDONE 0.5 MG TAB PO SCH (08:47)
[2018-02-12] MEDS: CHOLECALCIFEROL 1000 INTER.UNIT TAB PO SCH (08:47)
[2018-02-12] MEDS: RANITIDINE HCL 150 MG TAB PO SCH ×2 (08:47→21:10)
[2018-02-12] MEDS: SERTRALINE HCL 100 MG TAB PO SCH (08:48)
--- NOTE | 2018-02-12 09:20 | Medical Student: BHU Only ---
Psychiatric Progress Note Date of Service: Feb 12, 2018. SUBJECTIVE: Valentina Ibrahim is a 57 year old female with past medical history significant for OCD and mood disorder who was admitted to the [facility] on 02/01/18 on a 201 voluntary commitment for decreasing function and homicidal ideations secondary to OCD. She was previously admitted to the [facility] from 12/25-12/30/17 for similar symptoms where she refused pharmacotherapy. The patient was seen and assessed today, and progress was reviewed with nursing. Over the weekend, staff reported that her obsessions with handwashing have increased. She asked several times for staff reassurance that she actually washed her hands. Valentina admits to this and continues to have intrusive thoughts where she fears contaminating others. Prior to this interviewer entering the room, she spent a significant amount of time washing her hands to ensure they were clean. She is not having as many thoughts related to homicidal ideations but does fear passing her germs to others. She does not care as much about whether others make her dirty. She also continues to have thoughts of her walking by the toilet or trash can and wondering if she put her hand in it. She can not think of why she would think she does this. Valentina is still anxious for discharge as she fears returning to her paralyzed state that she was admitted in. She is tolerating her Zoloft and Risperdal. She has been eating all her meals. She slept for approximately 5 hours as she woke up at 5 AM and was unable to fall back asleep. Valentina did not attend group this morning but otherwise has been attending most programming. ROS: CONSTITUTIONAL: Denied HEENT: Eyes: Denied. Ears, Nose, Throat: Denied. SKIN: Denied. CARDIOVASCULAR: Denied. RESPIRATORY: Denied. GASTROINTESTINAL: Denied. GENITOURINARY: Denied. NEUROLOGICAL: Denied. MUSCULOSKELETAL: Denied. HEMATOLOGIC: Denied. LYMPHATICS: Denied. PSYCHIATRIC: Denied other than what is stated above. MEDICATIONS: Risperdal 0.5 mg in AM, 1 mg in PM Zoloft 200 mg qAM Vistaril 50 mg PRN for insomnia Vistaril 25 mg PRN for anxiety Ativan 0.5 mg q6h PRN for anxiety PHYSICAL EXAM: Medically cleared prior to admission Vitals: T 36.8, P 76, BP 100/62, RR 16 MSE: Appearance is that of a casually dressed, anxious female who appears her stated age. The patient is generally cooperative with the interview. Eye contact is appropriate. Motor behavior is normal; no evidence of tardive dyskinesia, akathisia, or other abnormal movements. Speech: Normal volume, fast rate, normal tone. Affect: Mood congruent. Mood: Anxious. Thought process: Goal directed. Thought content: Endorses obsessions and compulsions related to cleanliness. Denies SI. Sometimes has "intrusive thoughts" which manifests as HI towards others and fear of contaminating others. Perception: Denies auditory and visual hallucinations; does endorse hypnagogic and hypnopompic illusions where she feels her mom is calling her before going to sleep or waking Cognition: Cognition appears normal. Intelligence is estimated to be above average. Insight is estimated to be impaired. Judgment is estimated to be impaired. LABS: Test 02/01/18 11:25 02/01/18 11:39 02/01/18 11:40 02/02/18 06:59 Urine Color YELLOW Urine Appearance CLEAR Urine pH 6.0 Urine Specific [employer] 1.021 Urine Protein NEG Urine Glucose (UA) NEG Urine Ketones TRACE Urine Occult Blood NEG Urine Nitrite NEG Urine Bilirubin NEG Urine Urobilinogen NEG Urine Leukocyte Esterase NEG Sodium Level 139 Potassium Level 3.9 Chloride Level 104 Carbon Dioxide Level 29 Anion Gap 6.0 Blood Urea Nitrogen 17 Creatinine 0.95 Est Creatinine Clear Calc Drug Dose 59.7 Estimated GFR () 76.0 Estimated GFR (Non- 65.6 BUN/Creatinine Ratio 18.1 Random Glucose 100 Calcium Level 9.3 Total Bilirubin 0.6 Direct Bilirubin 0.1 Aspartate Amino Transferase (AST) 16 Alanine Aminotransferase (ALT) 25 Alkaline Phosphatase 76 Total Protein 7.5 Albumin 4.2 Salicylates Level < 1.7 Acetaminophen Level < 2 Ethyl Alcohol mg/dL < 3.0 White Blood Count 6.85 Red Blood Count 4.37 Hemoglobin 14.6 Hematocrit 42.2 Mean Corpuscular Volume 96.6 Mean Corpuscular Hemoglobin 33.4 Mean Corpuscular Hemoglobin Concent 34.6 Platelet Count 239 Mean Platelet Volume 9.4 Neutrophils (%) (Auto) 65.0 Lymphocytes (%) (Auto) 25.0 Monocytes (%) (Auto) 9.2 Eosinophils (%) (Auto) 0.3 Basophils (%) (Auto) 0.4 Neutrophils # (Auto) 4.45 Lymphocytes # (Auto) 1.71 Monocytes # (Auto) 0.63 Eosinophils # (Auto) 0.02 Basophils # (Auto) 0.03 RDW Standard Deviation 43.3 RDW Coefficient of Variation 12.3 Immature Granulocyte % (Auto) 0.1 Immature Granulocyte # (Auto) 0.01 Urine Opiates Screen NEG Urine Methadone, Qualitative NEG Urine Barbiturates NEG Urine Phencyclidine (PCP) Level NEG Ur Amphetamine/Methamphetamine NEG MDMA (Ecstasy) Screen NEG Urine Benzodiazepines Screen NEG Urine Cocaine Metabolite NEG Urine Marijuana (THC) NEG Fasting Glucose 77 Triglycerides Level 99 Cholesterol Level 131 HDL Cholesterol 52 LDL Cholesterol, Calculated 59 VLDL Cholesterol, Calculated 20 Cholesterol/HDL Ratio 2.5 Thyroid Stimulating Hormone (TSH) 3.190 Free Thyroxine 0.98 ASSESSMENT: Valentina Ibrahim is a 57 year old female with past medical history significant for OCD and depression who was admitted to the [facility] on 02/01/18 on a 201 voluntary commitment for decreasing function and homicidal ideations secondary to OCD. She was previously admitted to the [facility] from 12/25-12/30/17 for similar symptoms where she refused pharmacotherapy. Prior to this admission, she did start on a small dose of Zoloft prescribed by her GP. During this admission, she was started on risperidone and her dose of Zoloft was increased. Nursing staff has reported better behavior and mood since admission, which pharmacotherapy is likely contributing to. Her obsessions and compulsions were reported to have decreased in frequency last week but seems to have increased since the weekend. Staff fear that the idea to document her hand washing is what triggered this increase, which patient agrees to. She continues to wash her hands frequently and reports intrusive thoughts where she fears contaminating others. She is tolerating her medications well. Risperdal dose was decreased over the weekend as patient was complaining of "fogginess" throughout the day. She does not feel foggy at this time, but sometimes has lightheadedness when changing positions from sitting to standing. Therefore, dehydration could also be the cause of her symptoms. PLAN: 1. OCD a. Encourage participation in group; q15 safety checks b. Risperidone increased from 0.25 mg BID to 0.5 mg BID on 02/03; Increased to 1 mg BID last week and then decreased to 0.5 mg in AM and 1 mg in PM on 02/08. Patient is tolerating medication well- not having anymore fogginess since Risperdal was decreased; she and staff noticed improvements in obsessions and compulsions last week but felt she has increased hand washing and obsessions since the weekend. Therefore, Risperdal will be increased again today 02/12 to 1 mg BID. Patient was also encouraged to drink plenty of fluids as dehydration could also be cause of lightheadedness/fogginess. c. Zoloft was increased to 125 mg on 02/05; increased to 200 mg in AM on 02/10 ; patient is tolerating medication well d. TSH and fasting labs were normal when checked on 02/02. e. Continue Vistaril 50 mg PRN for insomnia. 2. Mood Disorder a. Zoloft at 200 mg daily. Patient is becoming somewhat anxious again and obsessions/compulsions have increased; continue Zoloft. b. Continue Vistaril 25 mg PRN for anxiety. c. Continue Ativan 0.5 mg PRN q6h for anxiety. Discharge Planning: Patient will follow-up on outpatient basis with Dr. Valdovinos. She currently sees Faustino Walker for counseling who she would like to continue seeing. Valentina was also advised to start seeing Dr. Magan Anders for concurrent exposure and response prevention therapy which she agreed to. She has an appointment to see Dr. Anders on 02/18 at 1 PM. Expected length of stay at this time is 1-3 days.
--- NOTE | 2018-02-12 11:27 | Psychiatric Progress Notes ---
Progress Note Date of Service Feb 12, 2018. Interval History Valentina Ibrahim is a 57-year-old female admitted on Feb 01, 2018 at 14:45 on a voluntary status. She is known to us from prior psychiatric hospitalization -12/30/17. During her recent psychiatric hospitalization she refused pharmacotherapy for treatment of OCD. She re-presents with worsening symptoms through the [facility] ER. Chief Complaint "I'm just resting and thinking. ". Subjective Patient was seen & assessed interval progress reviewed with Treatment Team. The patient is not in group, wanting to rest and think. She is looking forward to a visit from her addictions therapist today, to pray and be anointed. She talks in a stream of consciousness style about her many obsessive thoughts: getting a clean blanket and then wondering if she took if from the dirty linen hamper, many different thoughts about contamination from outside sources, whether she is making others sick, etc. She reviews again that perhaps having been sick with a fever in October was a trigger, as her obsessiveness about being clean and ritualized cleaning behaviors skyrocketed after that. She reviews that even as a child she was overly focused on being clean. Her mother would point it out to her when she thought she was being too clean, calling her 'Hyaideth" who was a TV character who had OCD. The other factor that she thinks may have some bearing on her obsessive cleanliness is that fact that she is a single woman, and has guilt about pleasuring herself, which she thinks translates into concerns about being unclean. Although she clearly denies any active suicidal ideation, she does say that if the Lord wants to take her she would be OK with that. She also says that she has random thoughts about the safety of our unit as it relates to being able to commit suicide, ie stiff, rough toothpaste tube that could be used to cut, but says she has no thoughts to harm herself in any way. She thinks the meds may be helping some, and wants to continue to make every effort to get better. Nursing reports that the patient's behavior is dominated by her OCD, constantly responding to the thoughts and finding ways to relieve the anxiety. Review of Systems Constitutional: No fever, No chills, No sweats, No weight loss, No weakness, No fatigue, No problem reported ENT: No hearing loss, No unusual epistaxis, No nasal symptoms, No sore throat, No tinnitus, No dental problems, No trouble swallowing, No problem reported Respiratory: No cough, No sputum, No wheezing, No shortness of breath, No dyspnea on exertion, No dyspnea at rest, No hemoptysis, No problem reported Cardiovascular: No chest pain, No orthopnea, No PND, No edema, No claudication , No palpitations, No problem reported Abdomen: No pain, No nausea, No vomiting, No diarrhea, No constipation, No GI bleeding, No problem reported Musculoskeletal: No joint pain, No muscle pain, No swelling, No calf pain, No problem reported Neurologic: No memory loss, No paralysis, No weakness, No numbness/tingling, No vertigo, No balance problems, No problem reported Psychiatric: + anxiety, + problem reported (obsessions and compulsions) Integumentary: No rash, No itch, No new/changing skin lesions, No color change , No bleeding, No problem reported Sleep Information Total Hours of Sleep: 5.00 Meal Information Percent of Breakfast Consumed: 100 Percent of Lunch Consumed: 100 Percent of Dinner Consumed: 100 Mental Status Exam During interview pt is: alert and oriented, cooperative Appearance: appropriately dressed, appropriately groomed Eye contact is: good Motor behavior is: steady gait & station, no abnormal motor movements Speech: normal in rate, rhythm & volume Affect: mood congruent, anxious Mood is: anxious (about obsessive, intrusive thoughts) Thought process: goal directed, perseveration (on cleaniness) Thought content: obsessions, cognitive distortions (Thinks that she needs to ensure cleanliness of the environment for others), compulsions (hand washing and prayer), guilt Suicidal thought are: denied Homicidal thoughts are: denied Hallucinations: denies auditory, denies visual Cognition: memory grossly intact, language grossly intact Intelligence estimated to be: above average Insight: fair Judgement: fair Medication Trials sertraline - started by PCP 01/2018 Impression Condition much the same, obsessions and compulsions rule her behavior. Dr. Duane Anders has agreed to see her for exposure response therapy beginning next week, but the patient is unable to function at this point if not in a supervised environment. Will increase AM risperdal to 1 mg. Plan (1) OCD (obsessive compulsive disorder) 02/01/18 - Patient's intrusive thoughts or choices behaviors are severe and incapacitating she is admitted on a voluntary status to the behavioral health unit and will be maintained on every 15 minute safety checks - She will be encouraged to participate in unit programming as appropriate - She will be trialed on Risperdal 0.25 mg by mouth every 4 hours when necessary for severe OCD symptoms. Risks and benefits as well as alternatives were reviewed which included discussion of potential metabolic side effects and tardive dyskinesia. Patient declined medication information handout - fasting labs and repeat TSH/FT4 in AM - Increase Zoloft to 75 mg daily tomorrow with plan to continue titration as indicated and tolerated - Will also make an Ativan 0.5 mg every 6 hours when necessary available temporarily for anxiety - Coordinate care with outpatient providers. She will need a psychiatric provider post discharge 02/02 - Already demonstrating improvement on low-dose Risperdal. We'll change schedule to 0.25 mg by mouth twice a day standing. May consider consolidating to at bedtime prior to discharge - will consider further Zoloft titration pending need and tolerability - Fasting labs and thyroid studies within normal limits 02/02/201802/03 - The patient continues to show some improvement in response to treatment. She has been able to eat 100% of her meals, and reports that she has been sleeping somewhat better. Today, we will increase her dose of sertraline from sertraline 75 mg daily to sertraline 100 mg daily. We will also increase her dose of risperidone from 0.25 mg twice a day to 0.5 mg twice a day. 02/04 -today, the patient tells me that she feels that she is improving, she is feeling less depressed and less anxious. She continues to be able to eat her meals and was able to sleep for approximately 7-1/2 hours last night with difficulty awakening this morning. The patient also indicates that she is tolerating her medications well and has noted no side effects. She also tells me that she realizes that they are helping, but she continues to have significant symptoms of OCD that are interfering with her activities of daily living. For example, she finds that she is compelled to say "silent prayer" each time she has an intrusive obsessive thought, and this happens with a frequency that it often breaks her concentration and, for example, interferes with her ability to attend to what people are saying to her. -The plan is to continue risperidone 0.5 mg twice a day. We will increase her dose of sertraline from 100 mg daily 225 mg daily, beginning in the morning. The patient has found a scheduled dose of hydroxyzine 50 mg at bedtime to be helpful because she does not ask for it, and if she takes it she sleeps through the night 02/05 - As noted, the patient continues to tell me that she has been less anxious and her mood has been "pretty good." However, last night, following a visit by the associate addictions therapist of her hindu, she experienced an "uptake" in her OCD symptoms. I am continuing to teach her strategies for coping with OCD symptoms while, same time, adjusting her psychiatric medications in order to assist her by bringing these symptoms under better control. Today, she began sertraline 125 mg daily, and some of this for, continues to tolerate sertraline well without any noted side effects. I will increase her dose of risperidone to 1 mg twice a day, beginning with her evening dose today. I discussed this with the patient and she is in agreement. We also reviewed risks and anticipated benefits of risperidone. Also, I am encouraging her to be more socially active and to develop improved leisure skills. The patient tells me that she has noticed that that this year she has, and the more she has to occupy her mind, the less obsessive she tends to be, and I am hoping to work with that observation. 02/06 - Continue Zoloft 125mg daily, Risperdal increased to 1mg BID, will continue this dose for now to observe effect. - Encouraged discussion of her thoughts and compulsions with staff, continue with group programming. 02/07 - Zoloft increased to 150mg qAM. Continue Risperdal 1mg BID - Pt to report to nurses station with hand washing behavior in order to better determine improvement in compulsions with treatment 02/08 - continue meds as above with eventual plan to get to 200-300mg overtime ( likely continuing titration as outpatient), discussed risperdal and holding at this dose given she is having some possible side effects. - goals for today are "once and done" with hand washing at each washing, and to delay washings for no sooner than 15min, to work on tasks of distraction and/ or activities of relaxation in between. Discussed goal to fight waiting at the sink for 15min but rather if she feels like going to the sink checking the time and resisting approaching. If she loses track of time that is a victory and she is to avoid scheduling hand washing for every 15min as well. She verbalizes understanding and states "I will try" Discussed the goal is the practice of resisting, not perfection. 02/09 - increase sertraline to 200mg 02/10/18 - reduce risperdal to 0.5mg AM and 1mg/hs to reduce "woozy, disconnected feeling" and monitor for worsening - revisit plan for "once and done" with hand washing, delay washings > 15min , and practicing combatting iwth "even if...." statements. SHe again notes she will try. Again reinforced goal is practicing not perfection (e.g. used analogy of lifting weights overtime to build strength) - encourage patient to consider concurrent care with ERP provider to assist in formal behavioral plan, she is ambivalent to seeing anyone who is not overtly [employer]ism 02/10 - Continue sertraline 200mg and risperidone 0.5mg qAM and 1mg qHS. - continue to challenge on parameters outlined by Dr. Valdovinos above: 15ming restraining, "once and done", and "even if..." statements. - Willing for ERP, will need to clarify provider availability. 02/11 - Continue current meds. - Referred to Dr. Anders - Wednesdays 10am. - Working on discharge planning - patient worried that she will decompensate w/ returning home, so work on plans for increased supports, structure her days, safety plan. 02/12 - Increase Risperdal to 1 mg. 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 She has continued to have periodic passive thoughts of suicide, without any plan or intent. She is future oriented, describes goals for her future, and indicates that she has never intentionally engaged in self-injurious behaviors. In the past, she has had intrusive thoughts of hanging herself, taking an overdose, or starving herself to - but tells me that she has never had any intent to act on these thoughts. 02/04 - The patient reports that her mood has gotten "better," and she says that she is quite aware that she is significantly less anxious than she had been in the recent past. She notes that she has had no further thoughts of suicide, and reiterates that she would never act on any thoughts, even related to occur. The patient remains future oriented and setting goals for herself. Patient's thought content is marked by frequent self depreciating thoughts. For example, the patient regularly makes statements such as "I guess that is a pretty dominant thing to do," "I guess I am just lazy." During her visit today , I was able to gently confront the patient about this. 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 02/05 - Ms. Ibrahim tells me today that she does not currently feel depressed, and is pleased to note that her mood has been "pretty good." I have observed her laughing with peers, and interacting in inappropriately jocular manner with several. Today, she caught herself that she was about to make a self depreciating statements, and thereby demonstrated that she is aware of this tendency. We discussed the fact that people "here" their own self depreciating statements and they can reinforce feelings of inadequacy and low self-esteem 02/06 - Continue Zoloft 125mg and group programming to address depressive symptoms. 02/07 and 02/08 - Zoloft increased on to 150mg qAM first dose 02/08/18. 02/09/18 - zoloft increase to 200mg, first dose 02/10/18 Discharge / Aftercare Planning Primary Care Physician: Name: Dr. Seay Appointment Notes: Appointment scheduled as needed Psychiatrist: Name: Dr. Valdovinos - [facility] Date of Appointment: Mar 03, 2018 Time of Appointment: 8:45 Appointment Notes: [address] [facility] [address] [facility] [address] Therapist: Name: Julio C Aaron - [facility] Date of Appointment: Feb 05, 2018 Time of Appointment: 11:00 am Appointment Notes: [address] [facility] [address] Ginning Operator: Name: none Other: Name of Appointment #1: Dr. Valdovinos - [facility] Date of Appointment #1: Mar 10, 2018 Time of Appointment #1: 1:00 p.m. Appointment #1 Notes: Follow up to initial intake with Dr. Valdovinos Name of Appointment #2: Dr. Magan Anders Date of Appointment #2: Feb 18, 2018 Time of Appointment #2: 1:00 p.m. Appointment #2 Notes: [address] [place] [address]. [address], [place] [address] Visit Code E&M Code: 66042 Inventory Assets Strengths: Help seeking, now willing to accept treatment, history of high functional baseline Needs: Acute medical intervention for severity of anxious symptomatology Risk Factors Assessment : Yes /single/: Yes Health problems: No Mental Health Diagnoses: Yes Substance use disorders: No Previous attempt: No Family history of suicide: No Previous psychiatric stay: Yes Hopelessness: Yes Smoker: No Protective Factors Assessment Zoroastrian beliefs: Yes : No Responsible for young children: No Employed: No Supportive family: Yes Data Vital Signs Last 24 Hrs: Date Time Temp Pulse Resp B/P (MAP) Pulse Ox O2 Delivery O2 Flow Rate FiO2 02/12/18 06:59 36.8 73 16 104/66 76 100/62 Meds Administered Last 24 Hrs: Current Inpatient Medications Medications (Trade) Dose Ordered Sig/Yassine Route Start Time Stop Time Status Last Admin Dose Admin Acetaminophen (Tylenol Tab) 650 mg Q4H PRN PO 02/01/18 15:30 03/03/18 15:29 Bismuth Subsalicylate (Kaopectate Liqd) 15 ml PRN PRN PO 02/01/18 15:30 03/03/18 15:29 Al Hydroxide/Mg Hydroxide (Maalox Susp) 30 ml Q4H PRN PO 02/01/18 15:30 03/03/18 15:29 02/03/18 00:33 30 ML Magnesium Hydroxide (Milk Of Magnesia Susp) 30 ml DAILY PRN PO 02/01/18 15:30 03/03/18 15:29 Sodium Chloride ([place] Nasal [place]) PRN PRN NA 02/01/18 15:30 03/03/18 15:29 Hydroxyzine HCl (Vistaril Tab) 25 mg Q4H PRN PO 02/01/18 15:30 03/03/18 15:29 02/02/18 19:54 25 MG Cholecalciferol (Vitamin D Tab) 1,000 inter.unit QAM PO 02/02/18 09:00 03/04/18 08:59 02/12/18 08:47 1,000 INTER.UNIT Multivitamins (Multivitamin Tab) 1 tab QAM PO 02/02/18 09:00 03/04/18 08:59 02/12/18 08:46 1 TAB Ranitidine HCl (zANTac TAB) 150 mg BID PO 02/01/18 22:00 03/03/18 21:59 02/12/18 08:47 150 MG Lorazepam (Ativan Tab) 0.5 mg Q6H PRN PO 02/01/18 17:30 03/03/18 17:29 02/02/18 16:09 0.5 MG Bimatoprost (Lumigan 0.01%) 1 drops HS OP 02/01/18 22:00 03/03/18 21:59 02/11/18 21:38 1 DROPS Polyethylene (Miralax Powder Packet) 17 gm DAILY PRN PO 02/06/18 10:15 03/08/18 10:14 02/07/18 04:32 17 GM Risperidone (Risperdal Tab) 0.5 mg QAM PO 02/10/18 09:00 03/12/18 08:59 02/12/18 08:47 0.5 MG Risperidone (Risperdal Tab) 1 mg HS PO 02/09/18 22:00 03/11/18 21:59 02/11/18 21:38 1 MG Sertraline HCl (Zoloft Tab) 200 mg QAM PO 02/10/18 09:00 03/12/18 08:59 02/12/18 08:48 200 MG Hydroxyzine HCl (Vistaril Tab) 50 mg HS PRN PO 02/11/18 08:45 03/05/18 21:59 Lab Results Last 24 Hrs: 02/01/18 11:40 Red Blood Count 4.37, Mean Corpuscular Volume 96.6, Mean Corpuscular Hemoglobin 33.4, Mean Corpuscular Hemoglobin Concent 34.6, Mean Platelet Volume 9.4, Neutrophils (%) (Auto) 65.0, Lymphocytes (%) (Auto) 25.0, Monocytes (%) (Auto) 9.2, Eosinophils (%) (Auto) 0.3, Basophils (%) (Auto) 0.4, Neutrophils # (Auto) 4.45, Lymphocytes # (Auto) 1.71, Monocytes # (Auto) 0.63, Eosinophils # (Auto) 0.02, Basophils # (Auto) 0.03 02/01/18 11:39 Test 02/01/18 11:25 02/01/18 11:39 02/01/18 11:40 02/02/18 06:59 Urine Color YELLOW Urine Appearance CLEAR (CLEAR) Urine pH 6.0 (4.5-7.5) Urine Specific [place]ray 1.021 (1.000-1.030) Urine Protein NEG (NEG) Urine Glucose (UA) NEG (NEG) Urine Ketones TRACE (NEG) Urine Occult Blood NEG (NEG) Urine Nitrite NEG (NEG) Urine Bilirubin NEG (NEG) Urine Urobilinogen NEG (NEG) Urine Leukocyte Esterase NEG (NEG) Anion Gap 6.0 mmol/L (3-11) Est Creatinine Clear Calc Drug Dose 59.7 ml/min Estimated GFR () 76.0 Estimated GFR (Non- 65.6 BUN/Creatinine Ratio 18.1 (10-20) Calcium Level 9.3 mg/dl (8.5-10.1) Total Bilirubin 0.6 mg/dl (0.2-1) Direct Bilirubin 0.1 mg/dl (0-0.2) Aspartate Amino Transf (AST/SGOT) 16 U/L (15-37) Alanine Aminotransferase (ALT/SGPT) 25 U/L (12-78) Alkaline Phosphatase 76 U/L (45-117) Total Protein 7.5 gm/dl (6.4-8.2) Albumin 4.2 gm/dl (3.4-5.0) Salicylates Level < 1.7 mg/dl (2.8-20) Acetaminophen Level < 2 ug/ml (10-30) Ethyl Alcohol mg/dL < 3.0 mg/dl (0-3) White Blood Count 6.85 K/uL (4.8-10.8) Red Blood Count 4.37 M/uL (4.2-5.4) Hemoglobin 14.6 g/dL (12.0-16.0) Hematocrit 42.2 % (37-47) Mean Corpuscular Volume 96.6 fL (80-100) Mean Corpuscular Hemoglobin 33.4 pg (25-34) Mean Corpuscular Hemoglobin Concent 34.6 g/dl (32-36) Platelet Count 239 K/uL (130-400) Mean Platelet Volume 9.4 fL (7.4-10.4) Neutrophils (%) (Auto) 65.0 % Lymphocytes (%) (Auto) 25.0 % Monocytes (%) (Auto) 9.2 % Eosinophils (%) (Auto) 0.3 % Basophils (%) (Auto) 0.4 % Neutrophils # (Auto) 4.45 K/uL (1.4-6.5) Lymphocytes # (Auto) 1.71 K/uL (1.2-3.4) Monocytes # (Auto) 0.63 K/uL (0.11-0.59) Eosinophils # (Auto) 0.02 K/uL (0-0.5) Basophils # (Auto) 0.03 K/uL (0-0.2) RDW Standard Deviation 43.3 fL (36.4-46.3) RDW Coefficient of Variation 12.3 % (11.5-14.5) Immature Granulocyte % (Auto) 0.1 % Immature Granulocyte # (Auto) 0.01 K/uL (0.00-0.02) Urine Opiates Screen NEG (NEG) Urine Methadone, Qualitative NEG (NEG) Urine Barbiturates NEG (NEG) Urine Phencyclidine (PCP) Level NEG (NEG) Ur Amphetamine/Methamphetamine NEG (NEG) MDMA (Ecstasy) Screen NEG (NEG) Urine Benzodiazepines Screen NEG (NEG) Urine Cocaine Metabolite NEG (NEG) Urine Marijuana (THC) NEG (NEG) Fasting Glucose 77 mg/dl (70-99) Triglycerides Level 99 mg/dl (0-150) Cholesterol Level 131 mg/dl (0-200) HDL Cholesterol 52 mg/dl LDL Cholesterol, Calculated 59 mg/dl VLDL Cholesterol, Calculated 20 mg/dl Cholesterol/HDL Ratio 2.5 Thyroid Stimulating Hormone (TSH) 3.190 uIu/ml (0.300-4.500) Free Thyroxine 0.98 ng/dl (0.80-1.60)
[2018-02-12] MEDS: RISPERIDONE 1 MG TAB PO SCH (21:10)
[2018-02-12] MEDS: BIMATOPROST 0.01% OP SOLN 2.5 ML BTL OP SCH (21:11)
[2018-02-13 06:59] VITALS: BP_SYST 93; BP_SYST 99; BP_DIAS 56; BP_DIAS 61; PULSE 73; PULSE 75; TEMP 36.4
[2018-02-13] MEDS: RISPERIDONE 1 MG TAB PO SCH ×2 (08:36→21:03)
[2018-02-13] MEDS: MULTIVITAMIN TAB PO SCH (08:36)
[2018-02-13] MEDS: CHOLECALCIFEROL 1000 INTER.UNIT TAB PO SCH (08:37)
[2018-02-13] MEDS: SERTRALINE HCL 100 MG TAB PO SCH (08:37)
[2018-02-13] MEDS: RANITIDINE HCL 150 MG TAB PO SCH ×2 (08:37→21:04)
--- NOTE | 2018-02-13 15:22 | Psychiatric Progress Notes ---
Progress Note Date of Service Feb 13, 2018. Interval History Valentina Ibrahim is a 57-year-old female admitted on Feb 01, 2018 at 14:45 on a voluntary status. She is known to us from prior psychiatric hospitalization -12/30/17. During her recent psychiatric hospitalization she refused pharmacotherapy for treatment of OCD. She re-presents with worsening symptoms through the [facility] ER. Chief Complaint "OK". Subjective Patient was seen & assessed interval progress reviewed with Treatment Team. The patient says that she is doing "OK" today. She woke early again today, thinking about an incident from last evening relating to cleanliness, touching something with a finger she had licked. It bothered her last night and still when she woke up. She started the higher dose of Risperdal today and feels that it may be calming her to some degreee, but remains with many obsessional thoughts and cleaning rituals. She did not receive a visit from her stencil cutter machine yet, which is disappointing to her. She asks about timing of discharge, acknowledging that "I have to face it sometime", but worrying about her ongoing severe OCD. She continues to deny acute active SI, but is OK if the Lord takes her. She notes that family visited last evening and commented that she had put some weight back on. She denies she is focused on her weight as she was when she was younger. She enjoys the food her and looks forward to meals. Review of Systems Constitutional: No fever, No chills, No sweats, No weight loss, No weakness, No fatigue, No problem reported ENT: No hearing loss, No unusual epistaxis, No nasal symptoms, No sore throat, No tinnitus, No dental problems, No trouble swallowing, No problem reported Respiratory: No cough, No sputum, No wheezing, No shortness of breath, No dyspnea on exertion, No dyspnea at rest, No hemoptysis, No problem reported Cardiovascular: No chest pain, No orthopnea, No PND, No edema, No claudication , No palpitations, No problem reported Abdomen: No pain, No nausea, No vomiting, No diarrhea, No constipation, No GI bleeding, No problem reported Musculoskeletal: No joint pain, No muscle pain, No swelling, No calf pain, No problem reported Neurologic: No memory loss, No paralysis, No weakness, No numbness/tingling, No vertigo, No balance problems, No problem reported Psychiatric: + anxiety Integumentary: + problem reported (chafed hands from washing) Sleep Information Total Hours of Sleep: 7.25 Meal Information Percent of Breakfast Consumed: 100 Percent of Lunch Consumed: 100 Percent of Dinner Consumed: 100 Mental Status Exam During interview pt is: alert and oriented, cooperative Appearance: appropriately dressed, appropriately groomed Eye contact is: good Motor behavior is: steady gait & station, no abnormal motor movements Speech: normal in rate, rhythm & volume Affect: mood congruent, anxious Mood is: anxious (about obsessive, intrusive thoughts) Thought process: goal directed, perseveration (on cleaniness) Thought content: obsessions, cognitive distortions (Thinks that she needs to ensure cleanliness of the environment for others), compulsions (hand washing and prayer), guilt Suicidal thought are: denied Homicidal thoughts are: denied Hallucinations: denies auditory, denies visual Cognition: memory grossly intact, language grossly intact Intelligence estimated to be: above average Insight: fair Judgement: fair Medication Trials sertraline - started by PCP 01/2018 Impression Feels increase in Risperdal mildly helpful, but still with obsessions and compulsions. Will continue current meds, and coordinate care with her outpatient providers in anticipation of discharge. Plan (1) OCD (obsessive compulsive disorder) 02/01/18 - Patient's intrusive thoughts or choices behaviors are severe and incapacitating she is admitted on a voluntary status to the behavioral health unit and will be maintained on every 15 minute safety checks - She will be encouraged to participate in unit programming as appropriate - She will be trialed on Risperdal 0.25 mg by mouth every 4 hours when necessary for severe OCD symptoms. Risks and benefits as well as alternatives were reviewed which included discussion of potential metabolic side effects and tardive dyskinesia. Patient declined medication information handout - fasting labs and repeat TSH/FT4 in AM - Increase Zoloft to 75 mg daily tomorrow with plan to continue titration as indicated and tolerated - Will also make an Ativan 0.5 mg every 6 hours when necessary available temporarily for anxiety - Coordinate care with outpatient providers. She will need a psychiatric provider post discharge 02/02 - Already demonstrating improvement on low-dose Risperdal. We'll change schedule to 0.25 mg by mouth twice a day standing. May consider consolidating to at bedtime prior to discharge - will consider further Zoloft titration pending need and tolerability - Fasting labs and thyroid studies within normal limits 02/02/201802/03 - The patient continues to show some improvement in response to treatment. She has been able to eat 100% of her meals, and reports that she has been sleeping somewhat better. Today, we will increase her dose of sertraline from sertraline 75 mg daily to sertraline 100 mg daily. We will also increase her dose of risperidone from 0.25 mg twice a day to 0.5 mg twice a day. 02/04 -today, the patient tells me that she feels that she is improving, she is feeling less depressed and less anxious. She continues to be able to eat her meals and was able to sleep for approximately 7-1/2 hours last night with difficulty awakening this morning. The patient also indicates that she is tolerating her medications well and has noted no side effects. She also tells me that she realizes that they are helping, but she continues to have significant symptoms of OCD that are interfering with her activities of daily living. For example, she finds that she is compelled to say "silent prayer" each time she has an intrusive obsessive thought, and this happens with a frequency that it often breaks her concentration and, for example, interferes with her ability to attend to what people are saying to her. -The plan is to continue risperidone 0.5 mg twice a day. We will increase her dose of sertraline from 100 mg daily 225 mg daily, beginning in the morning. The patient has found a scheduled dose of hydroxyzine 50 mg at bedtime to be helpful because she does not ask for it, and if she takes it she sleeps through the night 02/05 - As noted, the patient continues to tell me that she has been less anxious and her mood has been "pretty good." However, last night, following a visit by the associate stencil cutter machine of her sikhism, she experienced an "uptake" in her OCD symptoms. I am continuing to teach her strategies for coping with OCD symptoms while, same time, adjusting her psychiatric medications in order to assist her by bringing these symptoms under better control. Today, she began sertraline 125 mg daily, and some of this for, continues to tolerate sertraline well without any noted side effects. I will increase her dose of risperidone to 1 mg twice a day, beginning with her evening dose today. I discussed this with the patient and she is in agreement. We also reviewed risks and anticipated benefits of risperidone. Also, I am encouraging her to be more socially active and to develop improved leisure skills. The patient tells me that she has noticed that that this year she has, and the more she has to occupy her mind, the less obsessive she tends to be, and I am hoping to work with that observation. 02/06 - Continue Zoloft 125mg daily, Risperdal increased to 1mg BID, will continue this dose for now to observe effect. - Encouraged discussion of her thoughts and compulsions with staff, continue with group programming. 02/07 - Zoloft increased to 150mg qAM. Continue Risperdal 1mg BID - Pt to report to nurses station with hand washing behavior in order to better determine improvement in compulsions with treatment 02/08 - continue meds as above with eventual plan to get to 200-300mg overtime ( likely continuing titration as outpatient), discussed risperdal and holding at this dose given she is having some possible side effects. - goals for today are "once and done" with hand washing at each washing, and to delay washings for no sooner than 15min, to work on tasks of distraction and/ or activities of relaxation in between. Discussed goal to fight waiting at the sink for 15min but rather if she feels like going to the sink checking the time and resisting approaching. If she loses track of time that is a victory and she is to avoid scheduling hand washing for every 15min as well. She verbalizes understanding and states "I will try" Discussed the goal is the practice of resisting, not perfection. 02/09 - increase sertraline to 200mg 02/10/18 - reduce risperdal to 0.5mg AM and 1mg/hs to reduce "woozy, disconnected feeling" and monitor for worsening - revisit plan for "once and done" with hand washing, delay washings > 15min , and practicing combatting iwth "even if...." statements. SHe again notes she will try. Again reinforced goal is practicing not perfection (e.g. used analogy of lifting weights overtime to build strength) - encourage patient to consider concurrent care with ERP provider to assist in formal behavioral plan, she is ambivalent to seeing anyone who is not overtly Episcopal 02/10 - Continue sertraline 200mg and risperidone 0.5mg qAM and 1mg qHS. - continue to challenge on parameters outlined by Dr. Valdovinos above: 15ming restraining, "once and done", and "even if..." statements. - Willing for ERP, will need to clarify provider availability. 02/11 - Continue current meds. - Referred to Dr. Anders - Wednesdays 10am. - Working on discharge planning - patient worried that she will decompensate w/ returning home, so work on plans for increased supports, structure her days, safety plan. 02/12 - Increase Risperdal to 1 mg. AM and HS 02/13 - Continue current mesd. 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 She has continued to have periodic passive thoughts of suicide, without any plan or intent. She is future oriented, describes goals for her future, and indicates that she has never intentionally engaged in self-injurious behaviors. In the past, she has had intrusive thoughts of hanging herself, taking an overdose, or starving herself to - but tells me that she has never had any intent to act on these thoughts. 02/04 - The patient reports that her mood has gotten "better," and she says that she is quite aware that she is significantly less anxious than she had been in the recent past. She notes that she has had no further thoughts of suicide, and reiterates that she would never act on any thoughts, even related to occur. The patient remains future oriented and setting goals for herself. Patient's thought content is marked by frequent self depreciating thoughts. For example, the patient regularly makes statements such as "I guess that is a pretty dominant thing to do," "I guess I am just lazy." During her visit today , I was able to gently confront the patient about this. 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 02/05 - Ms. Ibrahim tells me today that she does not currently feel depressed, and is pleased to note that her mood has been "pretty good." I have observed her laughing with peers, and interacting in inappropriately jocular manner with several. Today, she caught herself that she was about to make a self depreciating statements, and thereby demonstrated that she is aware of this tendency. We discussed the fact that people "here" their own self depreciating statements and they can reinforce feelings of inadequacy and low self-esteem 02/06 - Continue Zoloft 125mg and group programming to address depressive symptoms. 02/07 and 02/08 - Zoloft increased on to 150mg qAM first dose 02/08/18. 02/09/18 - zoloft increase to 200mg, first dose 02/10/18 Discharge / Aftercare Planning Primary Care Physician: Name: Dr. Seay Appointment Notes: Appointment scheduled as needed Psychiatrist: Name: Dr. Bonifacio BlakeRigatila [facility] Date of Appointment: Mar 03, 2018 Time of Appointment: 8:45 Appointment Notes: [address] [place] [address] Therapist: Name: Julio C Walker [facility] Date of Appointment: Feb 05, 2018 Time of Appointment: 11:00 am Appointment Notes: [address] [facility] [address] [employer] Screen Etcher: Name: none Other: Name of Appointment #1: Dr. Bonifacio Blakehartwicktila [facility] Date of Appointment #1: Mar 10, 2018 Time of Appointment #1: 1:00 p.m. Appointment #1 Notes: Follow up to initial intake with Dr. Valdovinos Name of Appointment #2: Dr. Magan Anders Date of Appointment #2: Feb 18, 2018 Time of Appointment #2: 1:00 p.m. Appointment #2 Notes: [address] [place] [address]. [address], [place] [address] Visit Code E&M Code: 47463 Inventory Assets Strengths: Help seeking, now willing to accept treatment, history of high functional baseline Needs: Acute medical intervention for severity of anxious symptomatology Risk Factors Assessment : Yes /single/: Yes Health problems: No Mental Health Diagnoses: Yes Substance use disorders: No Previous attempt: No Family history of suicide: No Previous psychiatric stay: Yes Hopelessness: Yes Smoker: No Protective Factors Assessment Latter-Day beliefs: Yes : No Responsible for young children: No Employed: No Supportive family: Yes Data Vital Signs Last 24 Hrs: Date Time Temp Pulse Resp B/P (MAP) Pulse Ox O2 Delivery O2 Flow Rate FiO2 02/13/18 06:59 36.4 73 18 99/61 75 93/56 Meds Administered Last 24 Hrs: Meds Administered (Past 24Hrs) Medications (Trade) Dose Ordered Sig/Yassine Route Start Time Stop Time Status Last Admin Dose Admin Risperidone (Risperdal Tab) 1 mg BID PO 02/12/18 22:00 03/14/18 21:59 02/13/18 08:36 1 MG Lab Results Last 24 Hrs: 02/01/18 11:40 Red Blood Count 4.37, Mean Corpuscular Volume 96.6, Mean Corpuscular Hemoglobin 33.4, Mean Corpuscular Hemoglobin Concent 34.6, Mean Platelet Volume 9.4, Neutrophils (%) (Auto) 65.0, Lymphocytes (%) (Auto) 25.0, Monocytes (%) (Auto) 9.2, Eosinophils (%) (Auto) 0.3, Basophils (%) (Auto) 0.4, Neutrophils # (Auto) 4.45, Lymphocytes # (Auto) 1.71, Monocytes # (Auto) 0.63, Eosinophils # (Auto) 0.02, Basophils # (Auto) 0.03 02/01/18 11:39 Test 02/01/18 11:25 02/01/18 11:39 02/01/18 11:40 02/02/18 06:59 Urine Color YELLOW Urine Appearance CLEAR (CLEAR) Urine pH 6.0 (4.5-7.5) Urine Specific [place] 1.021 (1.000-1.030) Urine Protein NEG (NEG) Urine Glucose (UA) NEG (NEG) Urine Ketones TRACE (NEG) Urine Occult Blood NEG (NEG) Urine Nitrite NEG (NEG) Urine Bilirubin NEG (NEG) Urine Urobilinogen NEG (NEG) Urine Leukocyte Esterase NEG (NEG) Anion Gap 6.0 mmol/L (3-11) Est Creatinine Clear Calc Drug Dose 59.7 ml/min Estimated GFR () 76.0 Estimated GFR (Non- 65.6 BUN/Creatinine Ratio 18.1 (10-20) Calcium Level 9.3 mg/dl (8.5-10.1) Total Bilirubin 0.6 mg/dl (0.2-1) Direct Bilirubin 0.1 mg/dl (0-0.2) Aspartate Amino Transf (AST/SGOT) 16 U/L (15-37) Alanine Aminotransferase (ALT/SGPT) 25 U/L (12-78) Alkaline Phosphatase 76 U/L (45-117) Total Protein 7.5 gm/dl (6.4-8.2) Albumin 4.2 gm/dl (3.4-5.0) Salicylates Level < 1.7 mg/dl (2.8-20) Acetaminophen Level < 2 ug/ml (10-30) Ethyl Alcohol mg/dL < 3.0 mg/dl (0-3) White Blood Count 6.85 K/uL (4.8-10.8) Red Blood Count 4.37 M/uL (4.2-5.4) Hemoglobin 14.6 g/dL (12.0-16.0) Hematocrit 42.2 % (37-47) Mean Corpuscular Volume 96.6 fL (80-100) Mean Corpuscular Hemoglobin 33.4 pg (25-34) Mean Corpuscular Hemoglobin Concent 34.6 g/dl (32-36) Platelet Count 239 K/uL (130-400) Mean Platelet Volume 9.4 fL (7.4-10.4) Neutrophils (%) (Auto) 65.0 % Lymphocytes (%) (Auto) 25.0 % Monocytes (%) (Auto) 9.2 % Eosinophils (%) (Auto) 0.3 % Basophils (%) (Auto) 0.4 % Neutrophils # (Auto) 4.45 K/uL (1.4-6.5) Lymphocytes # (Auto) 1.71 K/uL (1.2-3.4) Monocytes # (Auto) 0.63 K/uL (0.11-0.59) Eosinophils # (Auto) 0.02 K/uL (0-0.5) Basophils # (Auto) 0.03 K/uL (0-0.2) RDW Standard Deviation 43.3 fL (36.4-46.3) RDW Coefficient of Variation 12.3 % (11.5-14.5) Immature Granulocyte % (Auto) 0.1 % Immature Granulocyte # (Auto) 0.01 K/uL (0.00-0.02) Urine Opiates Screen NEG (NEG) Urine Methadone, Qualitative NEG (NEG) Urine Barbiturates NEG (NEG) Urine Phencyclidine (PCP) Level NEG (NEG) Ur Amphetamine/Methamphetamine NEG (NEG) MDMA (Ecstasy) Screen NEG (NEG) Urine Benzodiazepines Screen NEG (NEG) Urine Cocaine Metabolite NEG (NEG) Urine Marijuana (THC) NEG (NEG) Fasting Glucose 77 mg/dl (70-99) Triglycerides Level 99 mg/dl (0-150) Cholesterol Level 131 mg/dl (0-200) HDL Cholesterol 52 mg/dl LDL Cholesterol, Calculated 59 mg/dl VLDL Cholesterol, Calculated 20 mg/dl Cholesterol/HDL Ratio 2.5 Thyroid Stimulating Hormone (TSH) 3.190 uIu/ml (0.300-4.500) Free Thyroxine 0.98 ng/dl (0.80-1.60)
[2018-02-13] MEDS: BIMATOPROST 0.01% OP SOLN 2.5 ML BTL OP SCH (21:03)
[2018-02-14 06:45] VITALS: BP_SYST 121; BP_SYST 128; BP_DIAS 72; BP_DIAS 78; PULSE 76; PULSE 77; TEMP 36.6
[2018-02-14] MEDS: CHOLECALCIFEROL 1000 INTER.UNIT TAB PO SCH (08:48)
[2018-02-14] MEDS: RISPERIDONE 1 MG TAB PO SCH (08:48)
[2018-02-14] MEDS: SERTRALINE HCL 100 MG TAB PO SCH (08:48)
[2018-02-14] MEDS: RANITIDINE HCL 150 MG TAB PO SCH (08:48)
[2018-02-14] MEDS: MULTIVITAMIN TAB PO SCH (08:48)
[2018-02-14] MEDS ORDERED: SERT-234 PO (09:43)
[2018-02-14] MEDS ORDERED: RSP1 PO (09:43)
--- NOTE | 2018-02-14 09:59 | Discharge Instructions ---
Discharge Information Report Includes Report will include the: Discharge Instructions & Summary Admission Admission Date / Time: Feb 01, 2018 at 14:45 Reason for Admission: OCD Discharge Discharge Diagnosis / Problem: OCD Condition at Discharge: Fair Discharge Goals Goal(s): Decrease discomfort, Improve disease control Activity Recommendations Activity Limitations: resume your previous activity . Instructions / Follow-Up Instructions / Follow-Up . SPECIAL CARE INSTRUCTIONS: 1. Follow through with your scheduled aftercare appointments. If unable to keep an appointment, please call to reschedule. 2. Take your medication only as prescribed. Medication should not be changed or stopped without the approval of your doctor. In the event of worsening symptoms or concerns about side effects, contact your doctor immediately. 3. Utilize new healthy coping skills, anger management skills, and stress management skills learned during your hospitalization. Journal feelings and process them with a support person. Identify stressors or situations that may result in relapse, deterioration or inappropriate behaviors and develop a plan to deal with those issues. 4. If your coping skills are ineffective and you are in crisis, contact your outpatient providers for direction. If unable to reach your providers, please call the CAN HELP LINE AT or go to the closest Emergency Room. 5. Avoid alcohol and un-prescribed drugs. 6. You have been provided with the Mental Health Advance Directives Pamphlet for your review. AFTERCARE APPOINTMENTS: * Please call your insurance company prior to your scheduled appointment to confirm your aftercare providers are covered. Take your insurance information to your appointments. . Discharge / Aftercare Planning Primary Care Physician: Name: Dr. Seay Appointment Notes: Appointment scheduled as needed Psychiatrist: Name: Dr. Bonifacio [facility] Date of Appointment: Mar 03, 2018 Time of Appointment: 8:45 Appointment Notes: [address] [facility] [address] [place] [address] Therapist: Name Of Therapist: Julio C Walker [facility] Date of Appointment: Feb 05, 2018 Time of Appointment: 11:00 am Appointment [facility] [address] [facility] [id number] Learning Manager: Name: none Other: Name of Appointment #1: Dr. Bonifacio [facility] Date of Appointment #1: Mar 10, 2018 Time of Appointment #1: 1:00 p.m. Appointment #1 Notes: Follow up to initial intake with Dr. Valdovinos Name of Appointment #2: Dr. Magan Anders Date of Appointment #2: Feb 18, 2018 Time of Appointment #2: 1:00 p.m. Appointment #2 Notes: [address] [facility] [address], [place] [address] . Follow-Up Care Plan for Follow-Up Care: aldo will have psychiatric follow up with Dr. Valdovinos, and therapists Dr. Anders and Mr. Walker Current Hospital Diet Patient's current hospital diet: Regular Diet Discharge Diet Recommended Diet: Regular Diet Procedures Procedures Performed: No Pending Studies Pending Studies at Discharge: No Medical Emergencies . Who to Call and When: Medical Emergencies: For questions or emergencies related to your hospital stay, please contact the Inpatient Behavioral Health Unit at [phone]. A behavior clinician is on-call 24/06 for the Behavioral Health Unit for emergencies At any time you feel your situation is an emergency, you may also call 911 immediately. . Non-Emergent Contact Non-Emergency issues call your: Psychiatrist, Therapist Past History Medical & Surgical History: (1) Acid reflux (2) HX: breast cancer Advance Directives Existing Advance Directive: No Do You Have an Existing Mental: No Existing Living Will: No Existing Power of Grease Refining Supervisor: No The Person Making Decisions: Dajuan Gaston Advance Directives Info Given: To Pt/S.O. Advance Directives Reason: Declines as Mental Health Visit. Discharge Summary Admission HPI Per the Admitting provider: Patient presented to the ER complaining of worsening OCD in company of her niece in law and a friend from christian. She indicated that she felt the need to hurt someone. It was noted that she had been seeing a Hindu counselor, Faustino Walker, and was pursuing psychiatric treatment with Dr. Valdovinos at [facility] but was not yet scheduled for an intake appointment there. She complained of worsening OCD symptoms since October 2017. Sick with a febrile illness in November seemingly exacerbated her anxiety symptoms. Was prescribed 25 mg of sertraline by her PCP, Dr. Seay, approximately 10 days prior to her presentation here. Only minimal relief reported. Admitted to thoughts of "just not being here anymore" but indicated that she wouldn't "have the nerve" to commit suicide. No smoking no alcohol or drugs. Did take Benadryl for sleep last night. Family reported that she was spending hours in the shower because of doubts about cleanliness and had stopped caring for her beloved bird. She was medically cleared and accepted for psychiatric inpatient hospitalization on a voluntary status. Reviewing the intake note from 12/25/2017, patient presented at that time on encouragement from family who had expressed worry that she might hurt herself. She noted a history of OCD, severe handwashing behaviors, worries about contamination. She noted a long history of similar behaviors with varying intensity over the years. Also noted that when she gets depressed she can't "break the cycle." During her hospitalization she refused medication and denied that she had an intent or plan for harming her [id number] and that thought was identified as ego-dystonic. She was willing to pursue psychotherapy as an outpatient and was discharged after a 5 day stay. On interview with me today, which is done in company of her niece in law and her friend from christian with her permission for purpose of comfort, patient describes declining condition since time of last admission. She has been eating little and weight downtrending. Describes feeling so preoccupied with thought of having to clean up after a meal that she is not able to cook for herself and typically eating only if someone takes her out or brings her food. Appetite is diminished. She describes severely compelling intrusive thoughts, commonly associated with a fear that she will have to do something bad to someone else such as killing her family members, or that something bad will happen if she does not "neutralize" the trigger. Triggers seem to be quite variable from physical touching of parts of her body, to miss speaking a word. To compensate she will pray and ask for forgiveness. She describes spending hours washing her hands and showering. Upon completing these tasks she will often have to return because she begins to doubt that she completed the task with sufficient diligence. At times she experiences patterns in her rituals. She acknowledges diminished interest and energy, declining mood, feelings of increasing hopelessness and thoughts of being better off but denies active suicidal ideation or intent. Regarding homicidal impulses she again identifies these as things that she does not want to do but fears that she may be forced to do them if she does not effectively neutralize the trigger. Intellectually she is able to state that she has never hurt anyone in the past, does not want to hurt anyone, and is unlikely to do so, however, despite theological basis of this type of thinking, she is unable to reassure herself. She denies auditory or visual hallucinations. She sleeps poorly chronically and has been feeling recently more restless but denies excessive energy or symptoms of obvious hypomania or vladimir. She has little to say about the Zoloft recently started by her PCP. She expresses willingness to consider pharmacotherapy as her symptoms have been worsening. "I considered other choice." She does ask not to be given the medication handouts as she perceives she is likely to worry about the potential for side effects. She does describe being commonly hyperaware of somatic symptoms but denies excessive utilization of medical resources. Hospital Course (1) OCD (obsessive compulsive disorder) 02/01/18 - Patient's intrusive thoughts or choices behaviors are severe and incapacitating she is admitted on a voluntary status to the behavioral health unit and will be maintained on every 15 minute safety checks - She will be encouraged to participate in unit programming as appropriate - She will be trialed on Risperdal 0.25 mg by mouth every 4 hours when necessary for severe OCD symptoms. Risks and benefits as well as alternatives were reviewed which included discussion of potential metabolic side effects and tardive dyskinesia. Patient declined medication information handout - fasting labs and repeat TSH/FT4 in AM - Increase Zoloft to 75 mg daily tomorrow with plan to continue titration as indicated and tolerated - Will also make an Ativan 0.5 mg every 6 hours when necessary available temporarily for anxiety - Coordinate care with outpatient providers. She will need a psychiatric provider post discharge 02/02 - Already demonstrating improvement on low-dose Risperdal. We'll change schedule to 0.25 mg by mouth twice a day standing. May consider consolidating to at bedtime prior to discharge - will consider further Zoloft titration pending need and tolerability - Fasting labs and thyroid studies within normal limits 02/02/201802/03 - The patient continues to show some improvement in response to treatment. She has been able to eat 100% of her meals, and reports that she has been sleeping somewhat better. Today, we will increase her dose of sertraline from sertraline 75 mg daily to sertraline 100 mg daily. We will also increase her dose of risperidone from 0.25 mg twice a day to 0.5 mg twice a day. 02/04 -today, the patient tells me that she feels that she is improving, she is feeling less depressed and less anxious. She continues to be able to eat her meals and was able to sleep for approximately 7-1/2 hours last night with difficulty awakening this morning. The patient also indicates that she is tolerating her medications well and has noted no side effects. She also tells me that she realizes that they are helping, but she continues to have significant symptoms of OCD that are interfering with her activities of daily living. For example, she finds that she is compelled to say "silent prayer" each time she has an intrusive obsessive thought, and this happens with a frequency that it often breaks her concentration and, for example, interferes with her ability to attend to what people are saying to her. -The plan is to continue risperidone 0.5 mg twice a day. We will increase her dose of sertraline from 100 mg daily 225 mg daily, beginning in the morning. The patient has found a scheduled dose of hydroxyzine 50 mg at bedtime to be helpful because she does not ask for it, and if she takes it she sleeps through the night 02/05 - As noted, the patient continues to tell me that she has been less anxious and her mood has been "pretty good." However, last night, following a visit by the associate loop sewer of her christian, she experienced an "uptake" in her OCD symptoms. I am continuing to teach her strategies for coping with OCD symptoms while, same time, adjusting her psychiatric medications in order to assist her by bringing these symptoms under better control. Today, she began sertraline 125 mg daily, and some of this for, continues to tolerate sertraline well without any noted side effects. I will increase her dose of risperidone to 1 mg twice a day, beginning with her evening dose today. I discussed this with the patient and she is in agreement. We also reviewed risks and anticipated benefits of risperidone. Also, I am encouraging her to be more socially active and to develop improved leisure skills. The patient tells me that she has noticed that that this year she has, and the more she has to occupy her mind, the less obsessive she tends to be, and I am hoping to work with that observation. 02/06 - Continue Zoloft 125mg daily, Risperdal increased to 1mg BID, will continue this dose for now to observe effect. - Encouraged discussion of her thoughts and compulsions with staff, continue with group programming. 02/07 - Zoloft increased to 150mg qAM. Continue Risperdal 1mg BID - Pt to report to nurses station with hand washing behavior in order to better determine improvement in compulsions with treatment 02/08 - continue meds as above with eventual plan to get to 200-300mg overtime ( likely continuing titration as outpatient), discussed risperdal and holding at this dose given she is having some possible side effects. - goals for today are "once and done" with hand washing at each washing, and to delay washings for no sooner than 15min, to work on tasks of distraction and/ or activities of relaxation in between. Discussed goal to fight waiting at the sink for 15min but rather if she feels like going to the sink checking the time and resisting approaching. If she loses track of time that is a victory and she is to avoid scheduling hand washing for every 15min as well. She verbalizes understanding and states "I will try" Discussed the goal is the practice of resisting, not perfection. 02/09 - increase sertraline to 200mg 02/10/18 - reduce risperdal to 0.5mg AM and 1mg/hs to reduce "woozy, disconnected feeling" and monitor for worsening - revisit plan for "once and done" with hand washing, delay washings > 15min , and practicing combatting iwth "even if...." statements. SHe again notes she will try. Again reinforced goal is practicing not perfection (e.g. used analogy of lifting weights overtime to build strength) - encourage patient to consider concurrent care with ERP provider to assist in formal behavioral plan, she is ambivalent to seeing anyone who is not overtly Hindu 02/10 - Continue sertraline 200mg and risperidone 0.5mg qAM and 1mg qHS. - continue to challenge on parameters outlined by Dr. Valdovinos above: 15ming restraining, "once and done", and "even if..." statements. - Willing for ERP, will need to clarify provider availability. 02/11 - Continue current meds. - Referred to Dr. Anders - Wednesdays 10am. - Working on discharge planning - patient worried that she will decompensate w/ returning home, so work on plans for increased supports, structure her days, safety plan. 02/12 - Increase Risperdal to 1 mg. AM and HS 02/13 - Continue current mesd. 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 She has continued to have periodic passive thoughts of suicide, without any plan or intent. She is future oriented, describes goals for her future, and indicates that she has never intentionally engaged in self-injurious behaviors. In the past, she has had intrusive thoughts of hanging herself, taking an overdose, or starving herself to - but tells me that she has never had any intent to act on these thoughts. 02/04 - The patient reports that her mood has gotten "better," and she says that she is quite aware that she is significantly less anxious than she had been in the recent past. She notes that she has had no further thoughts of suicide, and reiterates that she would never act on any thoughts, even related to occur. The patient remains future oriented and setting goals for herself. Patient's thought content is marked by frequent self depreciating thoughts. For example, the patient regularly makes statements such as "I guess that is a pretty dominant thing to do," "I guess I am just lazy." During her visit today , I was able to gently confront the patient about this. 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 02/05 - Ms. Ibrahim tells me today that she does not currently feel depressed, and is pleased to note that her mood has been "pretty good." I have observed her laughing with peers, and interacting in inappropriately jocular manner with several. Today, she caught herself that she was about to make a self depreciating statements, and thereby demonstrated that she is aware of this tendency. We discussed the fact that people "here" their own self depreciating statements and they can reinforce feelings of inadequacy and low self-esteem 02/06 - Continue Zoloft 125mg and group programming to address depressive symptoms. 02/07 and 02/08 - Zoloft increased on to 150mg qAM first dose 02/08/18. 02/09/18 - zoloft increase to 200mg, first dose 02/10/18 Risk Factors Assessment : Yes /single/: Yes Health problems: No Mental Health Diagnoses: Yes Substance use disorders: No Previous attempt: No Family history of suicide: No Previous psychiatric stay: Yes Hopelessness: Yes Smoker: No Protective Factors Assessment Sabianist beliefs: Yes : No Responsible for young children: No Employed: No Supportive family: Yes Day of Discharge Assessment COURSE OF HOSPITALIZATION: The patient has been on her unit for 13 days. She was admitted voluntarily due and acute decompensation of her obsessive- compulsive disorder. She was no longer able to care for herself, was not cooking, losing weight and was showering 4 hours on and due to her compulsions about cleanliness. She had previously been on our mental health unit in December of this year due to obsessive thoughts about killing a family member. She declined medications at that time but was willing to engage with a Hindu counselor and was discharged to the outpatient care of Faustino Walker. She did attend appointments but her obsessive thoughts about cleanliness were overwhelming and her compulsions all consuming. During the stay she was willing to accept medication and was started on Zoloft getting to a total dose of 200 mg daily. She tolerated this without side effect. She was also augmented with Risperdal 1 mg twice daily which she did find helpful to calming her thoughts. We attempted to establish a baseline number of hand washings per day but this intervention only serve to exacerbate the behaviors. She did wash her hands to excess, to the point of her hands being chafed and at times bleeding. Her conversations during her stay were almost a stream of thought about all of the obsessive thought she could have. She routinely would wonder if she had taken a dirty item out of either the trash can or the linen basket and would require a great deal of individual reassurance to believe that she had not. Grounding exercises were utilized as well as some acceptance therapy exercises. During her stay she did put on some of the weight that she had lost and ate well during her stay. She generally had some senior accounts payable specialist awakening during the last week of her stay, being up by 5 AM with obsessive thoughts. Comprehensive laboratory studies were obtained and she was without any metabolic abnormalities. She remained quite focused on quaker, gaining support from prayer and did receive visits from her christian members and her loop sewer. Prayer has also been a compulsive act for her prior to admission. She denied any acute or active suicidal ideation during her stay but did admit to some passive thoughts about , stating that if God took her she would be all right with that. Her anxiety level obviously remained very high during her stay and she remains anxious today about being discharged. During her stay there was no evidence of thought disorder. Family meeting was held with her brother and [id number] who are very supportive. The patient was an active participant in both group and individual therapy here and exercise daily by walking laps around the unit. TRANSITION OF CARE: I personally reviewed with the patient her follow-up appointments and medications. She has been counseled to attend all follow-up appointments and not to change her medications before seeing her outpatient providers. DAY OF DISCHARGE ASSESSMENT: Today the patient's is anticipating discharge. She does have anxiety about returning to her house it has been empty for 2 weeks and is now having obsessive thoughts about people having stolen her passwords while she was gone. I attempt to remind her of some grounding exercises to keep her focused which are of little relief today. She states that she knows she has to "face at some time" and feels ready to do so today. She continues to deny any active suicidal thinking. She has her safety plan that she worked on which includes getting out of the house, going out to eat, visiting her brother and [id number]. She is encouraged to return to the emergency room if her condition deteriorates. Today she is casually and appropriately dressed and groomed. Hands are chafed with small open areas. Eye contact is good. Speech is of normal rate volume and tone. Thoughts are organized, goal-directed, and without evidence of thought disorder. Recent and remote memory are intact per conversation. Intelligence is estimated to be average. Insight and judgment are minimally improved over admission. Laboratory Test 02/01/18 11:25 02/01/18 11:39 02/01/18 11:40 02/02/18 06:59 Urine Color YELLOW Urine Appearance CLEAR Urine pH 6.0 Urine Specific [place] 1.021 Urine Protein NEG Urine Glucose (UA) NEG Urine Ketones TRACE Urine Occult Blood NEG Urine Nitrite NEG Urine Bilirubin NEG Urine Urobilinogen NEG Urine Leukocyte Esterase NEG Sodium Level 139 Potassium Level 3.9 Chloride Level 104 Carbon Dioxide Level 29 Anion Gap 6.0 Blood Urea Nitrogen 17 Creatinine 0.95 Est Creatinine Clear Calc Drug Dose 59.7 Estimated GFR () 76.0 Estimated GFR (Non- 65.6 BUN/Creatinine Ratio 18.1 Random Glucose 100 Calcium Level 9.3 Total Bilirubin 0.6 Direct Bilirubin 0.1 Aspartate Amino Transferase (AST) 16 Alanine Aminotransferase (ALT) 25 Alkaline Phosphatase 76 Total Protein 7.5 Albumin 4.2 Salicylates Level < 1.7 Acetaminophen Level < 2 Ethyl Alcohol mg/dL < 3.0 White Blood Count 6.85 Red Blood Count 4.37 Hemoglobin 14.6 Hematocrit 42.2 Mean Corpuscular Volume 96.6 Mean Corpuscular Hemoglobin 33.4 Mean Corpuscular Hemoglobin Concent 34.6 Platelet Count 239 Mean Platelet Volume 9.4 Neutrophils (%) (Auto) 65.0 Lymphocytes (%) (Auto) 25.0 Monocytes (%) (Auto) 9.2 Eosinophils (%) (Auto) 0.3 Basophils (%) (Auto) 0.4 Neutrophils # (Auto) 4.45 Lymphocytes # (Auto) 1.71 Monocytes # (Auto) 0.63 Eosinophils # (Auto) 0.02 Basophils # (Auto) 0.03 RDW Standard Deviation 43.3 RDW Coefficient of Variation 12.3 Immature Granulocyte % (Auto) 0.1 Immature Granulocyte # (Auto) 0.01 Urine Opiates Screen NEG Urine Methadone, Qualitative NEG Urine Barbiturates NEG Urine Phencyclidine (PCP) Level NEG Ur Amphetamine/Methamphetamine NEG MDMA (Ecstasy) Screen NEG Urine Benzodiazepines Screen NEG Urine Cocaine Metabolite NEG Urine Marijuana (THC) NEG Fasting Glucose 77 Triglycerides Level 99 Cholesterol Level 131 HDL Cholesterol 52 LDL Cholesterol, Calculated 59 VLDL Cholesterol, Calculated 20 Cholesterol/HDL Ratio 2.5 Thyroid Stimulating Hormone (TSH) 3.190 Free Thyroxine 0.98 Total Time Total Time Spent (min): Greater than 30 minutes Total Time Included: examination of the patient, discharge planning, medication reconciliation, communication with other providers Tobacco Cessation at Discharge Smoking Status: Never Smoker FDA approved Prescription: non-smoker
--- NOTE | 2018-02-14 10:22 | Psych Management Progress Note ---
Psychiatry Miscellaneous Date of Service: Feb 14, 2018. Patient seen, MS assessed. Rates mood as 8/10 and somewhat nervous in anticipation of discharge. Encouraged cooperation with care and treatment plan as outlined by allied health prescriber. I personally participated in the medical decision making around her discharge. Patient no longer meets inpatient criteria for treatment of her OCD and can receive more specific treatment on an outpatient basis.
== END 2018-02-14 13:30 | disposition home or self-care (01) | DRG 882 ==
LOC: C.EDB 11:18 → C.MHU 14:45
PROVIDERS: ADMIT Student in an Organized Health Care Education/Training Program; ATTEND Student in an Organized Health Care Education/Training Program
DX: F42.9 Obsessive-compulsive disorder, unspecified (principal); R45.851 Suicidal ideations; F32.9 Major depressive disorder, single episode, unspecified; F41.9 Anxiety disorder, unspecified; K21.9 Gastro-esophageal reflux disease without esophagitis; Z79.899 Other long term (current) drug therapy; Z88.0 Allergy status to penicillin; Z88.1 Allergy status to other antibiotic agents; Z88.2 Allergy status to sulfonamides